=== PATIENT | female | born 1965 | race Two or more races ===

== ENCOUNTER → 2020-05-19 11:55 | Outpatient (BNVA) | payer OTHER, SELFPAY | PROVIDERS: PCP Internal Medicine; Referring Provider Internal Medicine; Visit Provider Physician Assistant | DX: Z01.818 Encounter for other preprocedural examination (principal); K59.09 Other constipation; Z86.010 Personal history of colon polyps; Z80.0 Family history of malignant neoplasm of digestive organs | CPT/HCPCS: 99203 ==

== ENCOUNTER 2020-07-12 10:02 | Outpatient (REF) | payer OTHER, SELFPAY ==
[2020-07-16 15:23] LABS: HPV 16 RNA NOT DETECTED (NOT DETECTED); HPV mRNA E6/E7 rflx Detected (Not Detected)
== END 2020-07-12 10:03 | disposition home or self-care (01) ==
LOC: CF 10:02
PROVIDERS: PCP Internal Medicine; Referring Provider Internal Medicine; Visit Provider Obstetrics & Gynecology
DX: Z01.419 Encounter for gynecological examination (general) (routine) without abnormal findings (principal); R10.2 Pelvic and perineal pain
CPT/HCPCS: 87624; 87625; 88141; 88142

== ENCOUNTER 2020-07-19 14:34 | Outpatient (REF) | payer OTHER, SELFPAY | END 2020-07-19 14:35 | disposition home or self-care (01) | LOC: HO.LNP 14:34 | PROVIDERS: Visit Provider Obstetrics & Gynecology | DX: Z01.419 Encounter for gynecological examination (general) (routine) without abnormal findings (principal); R10.2 Pelvic and perineal pain; Z11.8 Encounter for screening for other infectious and parasitic diseases; Z11.3 Encounter for screening for infections with a predominantly sexual mode of transmission | CPT/HCPCS: 57454; 81025 ==

== ENCOUNTER 2020-07-20 08:41 | Outpatient (REF) | payer OTHER, SELFPAY | END 2020-07-20 08:42 | disposition home or self-care (01) | LOC: HO.LAB 08:41 | PROVIDERS: Visit Provider Obstetrics & Gynecology | DX: Z01.419 Encounter for gynecological examination (general) (routine) without abnormal findings (principal); Z11.51 Encounter for screening for human papillomavirus (HPV) | CPT/HCPCS: 88305; 88342; 88360 ==

== ENCOUNTER → 2020-08-04 12:29 | Outpatient (BNVA) | payer OTHER, SELFPAY | PROVIDERS: PCP Internal Medicine; Visit Provider Obstetrics & Gynecology | DX: Z76.89 Persons encountering health services in other specified circumstances (principal) ==

== ENCOUNTER → 2020-08-16 08:10 | Outpatient (BNVA) | payer OTHER, SELFPAY | PROVIDERS: PCP Internal Medicine; Visit Provider Obstetrics & Gynecology | DX: D06.9 Carcinoma in situ of cervix, unspecified (principal) | CPT/HCPCS: 99212 ==

== ENCOUNTER 2020-08-20 08:14 | Outpatient (REF) | payer OTHER, SELFPAY ==
[2020-08-20 08:07] VITALS: BP 156/100; PULSE 98; RESP 20; TEMP 36.6; O2SAT 97; BMI 27.1
--- NOTE | 2020-08-20 08:41 | PM.OP ---
Brief Operative Note Date of Service: 07/09/20 Pre-op diagnosis: JESSE 2-3 @ 12+1 o' clock with negative ECC Post-op diagnosis: same Procedure: LEEP CONE with post CONE ECC Surgeon: Steve Snell MD Anesthesia: local and other (Paracervical block) Estimated blood loss (mL): 0 Pathology: other (Ant+post Cerv lip, Endocx, Post cone ECC) Condition: stable Disposition: other (Home)
--- NOTE | 2020-08-20 08:42 | W.PM.OPN ---
Operative Note Operative Note Date of Service: 07/09/20 Narrative: Preop diagnosis: JESSE 2-3 with negative ECC Operation: LEEP Cone with post cone ECC Post op diagnosis: same Anesthesia: paracervical block Complications: none Pathology: Anterior and Posterior cervical lip with endocervix & post cone ECC QBL: minimal Procedure: The patient was put in the dorsal lithotomy position, was prepped and draped in the usual sterile fashion. A sterile speculum was inserted inside the patient vagina. Using Lugol solution the cervix with Dyed with Lugol solution to identifiy the abnormal demarcating line. 10 cc of Marcaine0.5% with epinephrine were given at 2,4 , 8, and 10 o'clock. Using a medium-size loop wire, the anterior cervical lip was excised followed by the posterior cervical lip and endocervix, post cone ECC was done afterwards. Hemostasis was assured using cautery and Monsel solution. All instruments were taken out of the patient's vaginal cavity. the patient tolerated the procedure well and was discharged home with the following instructions: call if temperature is above 100.4, vaginal bleeding, abdominal pain or nausea or vomiting. Follow-up in the office in 2 weeks for postop visit
--- NOTE | 2020-08-20 08:43 | MHC.SHP ---
Pre-Procedural Eval Section A The patient is an INPATIENT: No Changes since office visit: No Cold of Flu in the past 2 weeks, No New Medical Problems, No Changes in Medication and No Patient answered all questions The History & Physical has been completed within 30 days and I have reviewed it.: Yes Section B Chief Complaint: contreras 3 Allergies: Allergies Allergy/AdvReac Type Severity Reaction Status Date / Time IV MED FOR VOMITING Allergy Unknown unknown Uncoded 08/16/20 08:42 Plan Diagnosis/Plan: Unchanged I have reviewed the history and physical and performed a pertinent physical examination on my patient. No changes have occurred unless specified.
== END 2020-08-20 14:30 | disposition home or self-care (01) ==
LOC: HO.MS 08:14
PROVIDERS: Visit Provider Obstetrics & Gynecology
PROC: 0UBC7ZZ Excision of Cervix, Via Natural or Artificial Opening (ICD-10-PCS; CPT 57522; principal; 2020-08-20 08:30)
DX: N87.0 Mild cervical dysplasia (principal); A63.0 Anogenital (venereal) warts; Z98.51 Tubal ligation status; Z90.49 Acquired absence of other specified parts of digestive tract
CPT/HCPCS: 57522; 81025; 88305; 88307; 88342; 88360; 99211

== ENCOUNTER 2020-08-25 08:37 | Outpatient (REF) | payer OTHER, SELFPAY ==
[2020-08-25 08:56] LABS: MANUAL DIFF FLAG NO
[2020-08-25 09:02] LABS: Basophils Percent Auto 0.4 % (0-2); Eosinophils Absolute Auto 0.5 X10*3/uL (0.0-0.4); Eosinophils Percent Auto 4.6 % (0-4); Hematocrit 42.2 % (37-47); Hemoglobin 13.7 g/dl (12.0-16.0); Imm Gran Abs Auto 0.03 X10*3/uL (0.00-0.03); Imm Gran Pct Auto 0.3 % (0.0-0.4); Lymphocytes Percent Auto 40.2 % (20-40); Mean Corpuscular HGB Conc 32.5 g/dl (31.0-35.0); Mean Corpuscular Hemoglobin 30.9 pg (27.0-33.0); Mean Corpuscular Volume 95.3 fL (80-98); Mean Platelet Volume 9.2 fL (9.4-12.3); Monocytes Absolute Auto 0.8 X10*3/uL (0.1-1.2); Monocytes Percent Auto 8.3 % (2-11); Neutrophils Absolute Auto 4.6 X10*3/uL (2.0-8.3); Neutrophils Percent Auto 46.2 % (45-73); Platelet Count 288 X10*3/uL (160-400); Red Blood Count 4.43 X10*6/uL (4.20-5.50); Red Cell Distribution Width 12.2 % (11.0-16.0); White Blood Count 9.9 X10*3/uL (4.8-10.8)
[2020-08-25 09:39] LABS: Alanine Aminotransferase 21 U/L (0-31); Albumin Level 4.5 g/dL (3.5-5.0); Alkaline Phosphatase 115 U/L (39-117); Anion Gap 15 (12-20); Aspartate Amino Transferase 19 U/L (5-31); Bilirubin Total 0.7 mg/dL (0.0-1.0); Blood Urea Nitrogen 16 mg/dL (9-16); Calcium 9.7 mg/dL (8.4-10.2); Carbon Dioxide 27 mmol/L (22-29); Chloride 106 mmol/L (96-108); Cholesterol 212 mg/dL; Estimated Glomerular Filt Rate > 60; Glucose Fasting 104 mg/dL (60-99); HDL Cholesterol 51 mg/dL; LDL Cholesterol Calculated 143 mg/dl; Potassium 4.7 mmol/l (3.3-5.1); Sodium 143 mmol/L (135-145); Total Protein 7.4 g/dL (6.5-8.0); Triglycerides 93 mg/dL
== END 2020-08-25 08:38 | disposition home or self-care (01) ==
LOC: HO.LAB 08:37
PROVIDERS: PCP Internal Medicine; Visit Provider Internal Medicine
DX: Z00.00 Encounter for general adult medical examination without abnormal findings (principal); E11.9 Type 2 diabetes mellitus without complications
CPT/HCPCS: 36415; 80053; 80061; 85025

== ENCOUNTER → 2020-09-02 11:55 | Outpatient (BNVA) | payer OTHER, SELFPAY | PROVIDERS: PCP Internal Medicine; Visit Provider Obstetrics & Gynecology ==

== ENCOUNTER 2020-09-06 14:49 | Outpatient (REF) | payer OTHER, SELFPAY ==
--- NOTE | ~2020-09-06 | US_ITS ---
EXAMINATION: PELVIC ULTRASOUND CLINICAL INFORMATION: Pelvic pain COMPARISON: Previous exam most recent June 2019 TECHNIQUE: Transabdominal and transvaginal pelvic ultrasound was performed. Transvaginal exam was performed for better visualization of the uterus and ovaries. FINDINGS: The uterus is anteverted and measures 6.5 x 2.7 x 4.3 cm in dimension. There is a 0.9 x 0.8 x 0.8 cm hypoechoic lesion in the high posterior uterine body suggestive of a small fibroid. No other focal uterine lesion is seen. Endometrial thickness is normal estimated at 0.3 cm. The right ovary measures 2.2 x 1.7 x 1.4 cm. There is a small echogenic focus seen in the periphery posterior right ovary questionable for calcification. This measures 2 mm. The left ovary measures 3.6 x 3 x 2.7 cm. There is a 2.2 x 2 x 2.3 cm complex left ovarian cyst with areas of irregular wall thickening and wall calcification. This is similar in size to the cyst seen on June 2019 exam. Calcification appears similar. Irregular areas of wall thickening are new. It is uncertain whether this represents the same cyst. There is no fluid in the pelvis. US/US pelvic complete IMPRESSION: 2.2 x 2 x 2.3 cm complex left ovarian cyst with areas of irregular wall thickening and question peripheral wall calcification. It is uncertain whether this represents the same cyst seen on June 2019 exam. Ultrasound follow-up in 10-12 weeks following several menstrual cycles is recommended. Small 2 mm echogenic focus in the posterior peripheral right ovary questionable for calcification. Small uterine fibroid.
--- NOTE | ~2020-09-06 | US_ITS ---
EXAMINATION: PELVIC ULTRASOUND CLINICAL INFORMATION: Pelvic pain COMPARISON: Previous exam most recent June 2019 TECHNIQUE: Transabdominal and transvaginal pelvic ultrasound was performed. Transvaginal exam was performed for better visualization of the uterus and ovaries. FINDINGS: The uterus is anteverted and measures 6.5 x 2.7 x 4.3 cm in dimension. There is a 0.9 x 0.8 x 0.8 cm hypoechoic lesion in the high posterior uterine body suggestive of a small fibroid. No other focal uterine lesion is seen. Endometrial thickness is normal estimated at 0.3 cm. The right ovary measures 2.2 x 1.7 x 1.4 cm. There is a small echogenic focus seen in the periphery posterior right ovary questionable for calcification. This measures 2 mm. The left ovary measures 3.6 x 3 x 2.7 cm. There is a 2.2 x 2 x 2.3 cm complex left ovarian cyst with areas of irregular wall thickening and wall calcification. This is similar in size to the cyst seen on June 2019 exam. Calcification appears similar. Irregular areas of wall thickening are new. It is uncertain whether this represents the same cyst. There is no fluid in the pelvis. US/US transvaginal IMPRESSION: 2.2 x 2 x 2.3 cm complex left ovarian cyst with areas of irregular wall thickening and question peripheral wall calcification. It is uncertain whether this represents the same cyst seen on June 2019 exam. Ultrasound follow-up in 10-12 weeks following several menstrual cycles is recommended. Small 2 mm echogenic focus in the posterior peripheral right ovary questionable for calcification. Small uterine fibroid.
== END 2020-09-06 14:50 | disposition home or self-care (01) ==
LOC: HO.US 14:49
PROVIDERS: Visit Provider Obstetrics & Gynecology
DX: R10.2 Pelvic and perineal pain (principal)
CPT/HCPCS: 76830; 76856

== ENCOUNTER 2020-09-10 18:47 | Emergency (ER) | payer OTHER, SELFPAY ==
[2020-09-10 19:17] VITALS: BP 159/93; PULSE 100; RESP 16; TEMP 36.9; O2SAT 99; BMI 26.3
--- NOTE | 2020-09-11 00:06 | ED_ITS ---
HPI - Extremity Problem General Chief complaint: Extremity Injury, Upper Stated complaint: finger swollen Time Seen by Provider: 09/10/20 23:07 Source: patient Mode of arrival: ambulatory Limitations: no limitations History of Present Illness HPI Narrative: 54 years old female presented after having pain and swelling in the tip of the right ring finger after trimming cuticle by biting it with her teeth. No fever chills, Related Data Previous Rx's Medication Instructions Recorded docusate sodium 100 mg capsule 200 mg PO BEDTIME #60 cap 05/19/20 miralax See Rx Instructions PO 05/19/20 USEASDIRECTD #238 g polyethylene glycol 3350 17 17 g PO DAILY #510 g 05/19/20 gram/dose oral powder bisacodyl 5 mg tablet,delayed 10 mg PO ONCE 1 Days #2 tab 07/28/20 release polyethylene glycol 3350 17 238 g PO ONCE 1 Days #238 g 07/28/20 gram/dose oral powder doxycycline monohydrate 100 mg PO BID #14 cap 09/11/20 Allergies Allergy/AdvReac Type Severity Reaction Status Date / Time IV MED FOR VOMITING Allergy Unknown unknown Uncoded 08/16/20 08:42 Review of Systems Review of Systems: All other systems are reviewed and are negative Constitutional: Reports as per HPI and Reports no additional constitutional co mplaints Eyes: Reports as per HPI and Reports no additional eye complaints Reports system reviewed and no additional complaints, except as documented Cardiovascular: Reports as per HPI and Reports no additional cardiovascular complaints Respiratory: Reports as per HPI and Reports no additional respiratory complaints Gastrointestinal: Reports as per HPI and Reports no additional gastrointestinal complaints Genitourinary: Reports no additional female genitourinary complaints Musculoskeletal: Reports no additional musculoskeletal complaints Skin/Breast: Reports system reviewed and no additional complaints, except as docu Psychiatric: Reports no additional psychiatric complaints Endocrine: Reports no additional endocrine complaints Hematologic/Lymphatic: Reports no additional hematologic/lymphatic complaints Allergic/Immunologic: Reports no additional allergic/immunologic complaints Reports system reviewed and no additional complaints, except as documented and Reports Abnormal speech present [facility] Past Medical History Medical History Colon polyps HPV (human papilloma virus) anogenital infection Surgical History H/O LEEP History of appendectomy History of cholecystectomy History of surgery Tubal ligation status Family History Family History Mother Colon cancer Maternal Grandfather No problems noted. Father Asthma Brother Lymphoma involving liver Maternal Aunt Breast cancer Social History Social History Alcohol intake: never Smoking Status: Never smoker Advance Directives: No Advance Directives Information Provided: Yes Sexual orientation: Straight/Heterosexual Gender identity: female Physical Exam Vital Signs: Vital Signs: Last Vital Signs Temp 98.4 F 09/10/20 19:17 Pulse 100 09/10/20 19:17 Resp 16 09/10/20 19:17 BP 159/93 H 09/10/20 19:17 Pulse Ox 99 09/10/20 19:17 Body Mass Index 26.3 Vital signs have been reviewed as normal and appeared to be correct. Blood pressure normal. Heart rate normal. Respiration rate normal. Temperature normal. Oxygen saturation normal. Appearance: Alert. Oriented X3. No acute distress. Head: Normal external exam. Normocephalic. Atraumatic. No Berger signs noted. No raccoon eyes noted Eyes: PERRLA. EOMI. Conjunctiva and sclera normal. Eyelids normal. ENT: EAC normal. TM's Normal. Pharynx normal. Uvula midline. Moist mucous membranes. No trismus noted. No drooling noted. No muffled voice noted. Neck: Normal inspection. Neck supple. FROM. No adenopathy. Thyroid Normal. No meningeal signs. No neck mass noted. CVS: Normal heart rate and rhythm. Heart sound normal. No murmurs noted. Pulses normal throughout. Respiratory: No respiratory distress. Painless inspiration. Breath sounds normal. No wheezes/rales/rhonchi noted. Chest nontender. No accessory muscle usage noted or decreased air movement noted. Abdomen: Soft and nontender. Bowel sounds normal in all 4 quadrants. No distention noted. No organomegaly noted. No visible injury noted. Back: No CVA tenderness. Full range of motion noted. Skin: Skin warm and dry. Normal skin color. Normal skin turgor. No rashes/lesions/lacerations noted. Extremities: Paronychia to the right ring finger with fluctuation on the ulnar side. Otherwise neurovascular exam of her right hand is intact. Neuro: Oriented X 3. No motor deficit. No sensory deficit. Reflexes normal. Course Course Course Narrative: Assessment and plan. 54-year-old female came in with paronychia infection with abscess, status post I and D of the paronychia with abscess of her right ring finger. Patient feels better after the procedure, start the patient on 7 days course of doxycycline. Procedures Abscess I/D Site: hand (Right ring finger paronychia) Local Anesthetic: lidocaine 1% Technique: incised with blade (Eleven blade scalpel) Amount of fluid expressed (mL): 3 Irrigation: No Packing used?: none Discharge Plan Discharge Clinical Impression: Paronychia of finger Qualifiers: Laterality: right Qualified Code(s): L03.011 - Cellulitis of right finger Patient Disposition: Home, Self-Care Instructions: Paronychia (ED) Prescriptions: New doxycycline monohydrate 100 mg capsule 100 mg PO BID Qty: 14 RF: 0 No Action polyethylene glycol 3350 [Miralax] 17 gram/dose powder 238 g PO ONCE 1 Days Qty: 238 RF: 0 bisacodyl [Dulcolax (bisacodyl)] 5 mg tablet,delayed release (DR/EC) 10 mg PO ONCE 1 Days Qty: 2 RF: 0 miralax See Rx Instructions PO USEASDIRECTD Qty: 238 RF: 0 polyethylene glycol 3350 [Miralax] 17 gram/dose powder 17 g PO DAILY Qty: 510 RF: 0 docusate sodium [Colace] 100 mg capsule 200 mg PO BEDTIME Qty: 60 RF: 5 Referrals: Jose Alberto Dumas MD [Primary Care Provider] - 2 days
[2020-09-11] MEDS: Lidocaine HCl 1 % MPF 5 ML VIAL SUBCUT (00:18)
== END 2020-09-11 00:45 | disposition home or self-care (01) ==
PROVIDERS: Emergency Provider Emergency Medicine; PCP Internal Medicine
DX: L03.011 Cellulitis of right finger (principal)
CPT/HCPCS: 10060; 99283; 99284

== ENCOUNTER → 2020-09-14 13:35 | Outpatient (BNVA) | payer OTHER, SELFPAY | PROVIDERS: PCP Internal Medicine; Visit Provider Obstetrics & Gynecology ==

== ENCOUNTER 2020-09-15 12:13 | Outpatient (REF) | payer OTHER, SELFPAY ==
[2020-09-16 12:26] LABS: CA-125 5 U/mL (<35)
== END 2020-09-15 12:14 | disposition home or self-care (01) ==
LOC: HO.LAB 12:13
PROVIDERS: PCP Internal Medicine; Visit Provider Obstetrics & Gynecology
DX: N83.299 Other ovarian cyst, unspecified side (principal)
CPT/HCPCS: 36415; 86304

== ENCOUNTER 2020-09-17 07:27 | Emergency (ER) | payer OTHER, SELFPAY ==
--- NOTE | ~2020-09-17 | CT_ITS ---
EXAMINATION: CT ABDOMEN AND PELVIS WITHOUT CONTRAST CLINICAL INFORMATION: Left upper quadrant pain. COMPARISON: Pelvic ultrasound 321. Prior CT 04/09/2007 TECHNIQUE: Multidetector volumetric imaging was performed from the superior aspect of the liver through the pubic symphysis. Sagittal and coronal reformatted images were obtained on the technologist's workstation. This CT examination was performed using dose optimization techniques as appropriate, variously including the following: *Automated exposure control *Adjustment of mA and/or kV according to patient size (this includes techniques or standardized protocols for targeted exams where dose is matched to indication/reason for exam; i.e. extremities or head) *Use of iterative reconstruction technique DLP: 490 mGy-cm FINDINGS: The lack of intravenous contrast limits evaluation of the solid visceral organs including the liver, spleen, pancreas, and kidneys. LUNG BASES: The visualized lung bases are unremarkable. LIVER, GALLBLADDER, AND BILIARY TREE: Limited non-contrast evaluation is normal. No gross focal hepatic lesion. Normal liver size and contour. No gross biliary ductal dilation. Status post cholecystectomy. PANCREAS: Limited non-contrast evaluation is normal. No abbey-pancreatic fluid. SPLEEN: Limited non-contrast evaluation is normal. ADRENAL GLANDS: Normal; no adrenal mass. KIDNEYS AND URETERS: There is slight prominence of both proximal ureters but no hydronephrosis. No calculi or mass. GASTROINTESTINAL TRACT: Small bowel and colon are non-dilated. No bowel wall thickening. No pericolonic inflammatory changes to suggest colitis or diverticulitis. ABDOMINAL WALL: No hernia seen. LYMPH NODES: No pathologically enlarged lymph nodes in the abdomen or pelvis. VASCULAR: Normal caliber abdominal aorta. BLADDER: Unremarkable. PELVIC VISCERA: Normal noncontrast appearance of the uterus and ovaries. OSSEOUS STRUCTURES: No acute or suspicious osseous abnormalities. CT/CT abdomen pelvis wo con IMPRESSION: No acute CT findings.
[2020-09-17 07:39] VITALS: BP 135/84; PULSE 89; RESP 16; TEMP 36.4; O2SAT 97; BMI 26.5
--- NOTE | 2020-09-17 07:59 | ED_ITS ---
HPI - Abdominal Pain General Chief Complaint: Abdominal Pain Stated Complaint: PAIN ALL OVER Time Seen by Provider: 09/17/20 07:59 Source: patient Mode of arrival: ambulatory Limitations: no limitations History of Present Illness HPI narrative: 54 yo female with hx of cholecystectomy c/o LUQ pain that radiates to her back on and off for 2 months but worse since last night - no dyspnea, no pain with deep breaths but pain is under left breast MD elicited complaint: abdominal pain Pertinent past history: constipation Onset (ago): month(s) (2 but worse since last night) Pain Consistency: intermittent Location: chest, epigastric and LUQ Severity: similar to previous episodes Quality: stabbing Radiation: none Migration to: no migration Exacerbating factors: movement Relieving factors: nothing Context: history of similar episodes Associated symptoms: nausea and constipation Related Data Previous Rx's Medication Instructions Recorded docusate sodium 100 mg capsule 200 mg PO BEDTIME #60 cap 05/19/20 miralax See Rx Instructions PO 05/19/20 USEASDIRECTD #238 g polyethylene glycol 3350 17 17 g PO DAILY #510 g 05/19/20 gram/dose oral powder bisacodyl 5 mg tablet,delayed 10 mg PO ONCE 1 Days #2 tab 07/28/20 release polyethylene glycol 3350 17 238 g PO ONCE 1 Days #238 g 07/28/20 gram/dose oral powder doxycycline monohydrate 100 mg PO BID #14 cap 09/11/20 dicyclomine 20 mg PO TID PRN #30 tab 09/17/20 famotidine [Pepcid] 20 mg PO DAILY PRN #30 tab 09/17/20 ondansetron 4 mg PO Q8H PRN #20 tab 09/17/20 sennosides [senna] 8.6 mg PO BEDTIME PRN #30 cap 09/17/20 Allergies Allergy/AdvReac Type Severity Reaction Status Date / Time IV MED FOR VOMITING Allergy Unknown unknown Uncoded 08/16/20 08:42 Review of Systems Review of Systems Constitutional : No Weight loss, No Fever, No Chills ENT/Mouth : No sore throat, No Rhinorrhea Eyes: No Swelling, No Redness Cardiovascular : pos Chest Pain, No SOB, NoEdema Respiratory : No Cough, No Sputum, No Wheezing Gastrointestinal : Positive Nausea, no Vomiting, no Diarrhea, positive abdominal Pain, No Hematochezia, No Melena, pos constipation Genitourinary : No Dysuria, No Urinary Frequency, No Hematuria, No Urgency Musculoskeletal : No joint pain, No Myalgias, No Joint Swelling Skin : No Skin Lesions, No rash Neuro : No Weakness, No Numbness, No Dizziness, No Headache Psych : No Anxiety/Panic, No Depression Heme/Lymph: No Bruising, No Lymphadenopathy Endocrine : No Polyuria, No Polydipsia All other systems reviewed and are negative. Physical Exam Vital Signs: Vital Signs: Last Vital Signs Temp 97.5 F 09/17/20 07:39 Pulse 89 09/17/20 07:39 Resp 16 09/17/20 07:39 BP 135/84 09/17/20 07:39 Pulse Ox 97 09/17/20 07:39 Body Mass Index 26.5 Appearance: Alert. Oriented X3. No acute distress. Eyes: Pupils equal, round and reactive to light. ENT: Pharynx normal. Neck: Normal inspection. Neck supple. CVS: Normal heart rate and rhythm. Pulses normal. Respiratory: No respiratory distress. Breath sounds normal. Abdomen: Soft and mild LUQ pain no rebound or guarding Skin: Skin warm and dry. Normal skin color. Normal skin turgor. Extremities: No lower extremity edema. No calf ttp Neuro: Oriented X 3. No motor deficit. No sensory deficit. Course Course Course Narrative: negative workup stable for DC MDM - Abdominal Pain MDM Narrative Medical decision making narrative: 54 yo female with hx of constipation not on medications here with 2 months of intermittent LUQ pain but worse since last night could be distention from constipation at this time will obtain labs, ddimer, EKG, troponin, treat discomfort - possible imaging depending on labs including CT for mass. Lab Data Result diagrams: 09/17/20 08:24 09/17/20 08:24 Labs: Lab Results 09/17/20 09/17/20 09/17/20 Range/Units 08:15 08:24 08:24 WBC 4.4 L (4.8-10.8) X10*3/uL RBC 4.37 (4.20-5.50) X10*6/uL Hgb 13.5 (12.0-16.0) g/dl Hct 40.2 (37-47) % MCV 92.0 (80-98) fL MCH 30.9 (27.0-33.0) pg MCHC 33.6 (31.0-35.0) g/dl RDW 12.2 (11.0-16.0) % Plt Count 269 (160-400) X10*3/uL MPV 9.4 (9.4-12.3) fL Immature Gran % (Auto) 0.2 (0.0-0.4) % Neut % (Auto) 37.9 L (45-73) % Lymph % (Auto) 39.3 (20-40) % [place] % (Auto) 16.4 H (2-11) % Eos % (Auto) 5.7 H (0-4) % Baso % (Auto) 0.5 (0-2) % Lymph # (Auto) 1.7 (1.2-4.9) X10*3/uL [place] # (Auto) 0.7 (0.1-1.2) X10*3/uL Eos # (Auto) 0.3 (0.0-0.4) X10*3/uL Baso # (Auto) 0.0 (0.0-0.2) X10*3/uL Abs Immat Gran (auto) 0.01 (0.00-0.03) X10*3/uL Absolute Neuts (auto) 1.7 L (2.0-8.3) X10*3/uL Absolute Nucleated RBC 0.000 (0.0-0.012) X10*3/uL Nucleated RBC % (auto) 0.0 (0.0-0.2) /100WBC D-Dimer 226 NG/ML Sodium (135-145) mmol/L Potassium (3.3-5.1) mmol/L Chloride (96-108) mmol/L Carbon Dioxide (22-29) mmol/L Anion Gap (12-20) BUN (9-16) mg/dL Creatinine (0.5-1.4) mg/dL Estim Creat Clear Calc Estimated GFR Random Glucose (60-115) mg/dL Calcium (8.4-10.2) mg/dL Magnesium (1.6-2.6) mg/dL Total Bilirubin (0.0-1.0) mg/dL Direct Bilirubin (0.0-0.5) mg/dL AST (5-31) U/L ALT (0-31) U/L Alkaline Phosphatase (39-117) U/L Troponin I High Sens (<3.5-17.0) ng/L Total Protein (6.5-8.0) g/dL Albumin (3.5-5.0) g/dL Lipase (8-78) U/L Urine Color YELLOW Urine Appearance CLEAR Urine pH 6.0 (5.0-8.0) Ur Specific [place] 1.015 (1.005-1.025) Urine Protein NEG (NEG-TRACE) MG/DL Urine Glucose (UA) NEG (NEG) MG/DL Urine Ketones NEG (NEG) MG/DL Urine Blood 1+ H (NEG) Urine Nitrite NEG (NEG) Ur Leukocyte Esterase NEG (NEG) Urine RBC 1-4 (0) /HPF Urine WBC 0-2 (0-4) /HPF Ur Squamous Epith Cells TRACE /LPF Urine Bacteria NONE /LPF 09/17/20 09/17/20 09/17/20 Range/Units 08:24 08:24 08:30 WBC (4.8-10.8) X10*3/uL RBC (4.20-5.50) X10*6/uL Hgb (12.0-16.0) g/dl Hct (37-47) % MCV (80-98) fL MCH (27.0-33.0) pg MCHC (31.0-35.0) g/dl RDW (11.0-16.0) % Plt Count (160-400) X10*3/uL MPV (9.4-12.3) fL Immature Gran % (Auto) (0.0-0.4) % Neut % (Auto) (45-73) % Lymph % (Auto) (20-40) % [place] % (Auto) (2-11) % Eos % (Auto) (0-4) % Baso % (Auto) (0-2) % Lymph # (Auto) (1.2-4.9) X10*3/uL [place] # (Auto) (0.1-1.2) X10*3/uL Eos # (Auto) (0.0-0.4) X10*3/uL Baso # (Auto) (0.0-0.2) X10*3/uL Abs Immat Gran (auto) (0.00-0.03) X10*3/uL Absolute Neuts (auto) (2.0-8.3) X10*3/uL Absolute Nucleated RBC (0.0-0.012) X10*3/uL Nucleated RBC % (auto) (0.0-0.2) /100WBC D-Dimer NG/ML Sodium 137 (135-145) mmol/L Potassium 3.7 (3.3-5.1) mmol/L Chloride 104 (96-108) mmol/L Carbon Dioxide 26 (22-29) mmol/L Anion Gap 11 L (12-20) BUN 12 (9-16) mg/dL Creatinine 0.69 (0.5-1.4) mg/dL Estim Creat Clear Calc 84.8 Estimated GFR > 60 Random Glucose 104 (60-115) mg/dL Calcium 9.4 (8.4-10.2) mg/dL Magnesium 2.2 (1.6-2.6) mg/dL Total Bilirubin 0.4 (0.0-1.0) mg/dL Direct Bilirubin < 0.2 (0.0-0.5) mg/dL AST 19 (5-31) U/L ALT 15 (0-31) U/L Alkaline Phosphatase 112 (39-117) U/L Troponin I High Sens < 3.5 (<3.5-17.0) ng/L Total Protein 7.4 (6.5-8.0) g/dL Albumin 4.4 (3.5-5.0) g/dL Lipase 11 (8-78) U/L Urine Color Urine Appearance Urine pH (5.0-8.0) Ur Specific [place] (1.005-1.025) Urine Protein (NEG-TRACE) MG/DL Urine Glucose (UA) (NEG) MG/DL Urine Ketones (NEG) MG/DL Urine Blood (NEG) Urine Nitrite (NEG) Ur Leukocyte Esterase (NEG) Urine RBC (0) /HPF Urine WBC (0-4) /HPF Ur Squamous Epith Cells /LPF Urine Bacteria /LPF ECG Data Attestation: I personally reviewed and interpreted this ECG as follows: ECG interpretation date: 09/17/20 ECG interpretation time: 08:12 Interpretation: Rate: 83 Rhythm: NSR Lindsay: normal Normal P waves. Normal FAHEEM. Normal QRS complex. ST T wave : normal qTC: normal prior studies: no acute ischemia The study has been interpreted contemporaneously by me. . Discharge Plan Discharge Clinical Impression: Chronic constipation, Abdominal pain Patient Disposition: Home, Self-Care Instructions: Constipation (ED), Abdominal Pain (ED) Additional Instructions: return to ED for any worsening symptoms or concerns Prescriptions: New famotidine [Pepcid] 20 mg tablet 20 mg PO DAILY PRN (Reason: abdominal discomfort) Qty: 30 RF: 0 ondansetron 4 mg tablet,disintegrating 4 mg PO Q8H PRN (Reason: nausea and vomiting) Qty: 20 RF: 0 senna 8.6 mg capsule 8.6 mg PO BEDTIME PRN (Reason: constipation) Qty: 30 RF: 0 dicyclomine 20 mg tablet 20 mg PO TID PRN (Reason: abdominal discomfort) Qty: 30 RF: 0 No Action polyethylene glycol 3350 [Miralax] 17 gram/dose powder 238 g PO ONCE 1 Days Qty: 238 RF: 0 bisacodyl [Dulcolax (bisacodyl)] 5 mg tablet,delayed release (DR/EC) 10 mg PO ONCE 1 Days Qty: 2 RF: 0 doxycycline monohydrate 100 mg capsule 100 mg PO BID Qty: 14 RF: 0 miralax See Rx Instructions PO USEASDIRECTD Qty: 238 RF: 0 polyethylene glycol 3350 [Miralax] 17 gram/dose powder 17 g PO DAILY Qty: 510 RF: 0 docusate sodium [Colace] 100 mg capsule 200 mg PO BEDTIME Qty: 60 RF: 5 Referrals: Jose Alberto Dumas MD [Primary Care Provider] - 3 days (if not better) [facility] Past Medical History Attestation statement: The following information was validated with the patient. Medical History Colon polyps HPV (human papilloma virus) anogenital infection Surgical History H/O LEEP History of appendectomy History of cholecystectomy History of surgery Tubal ligation status Family History Family History Mother Colon cancer Maternal Grandfather No problems noted. Father Asthma Brother Lymphoma involving liver Maternal Aunt Breast cancer Social History Social History Alcohol intake: never Smoking Status: Never smoker Advance Directives: No Advance Directives Information Provided: No Sexual orientation: Straight/Heterosexual Gender identity: female
--- NOTE | 2020-09-17 08:02 | ECG_ITS ---
Test Reason : ABDOMINAL PAIN Blood Pressure : / mmHG Vent. Rate : 083 BPM Atrial Rate : 083 BPM P-R Int : 174 ms QRS Dur : 080 ms QT Int : 382 ms P-R-T Axes : 043 003 055 degrees QTc Int : 448 ms Normal sinus rhythm Normal ECG When compared with ECG of 18-JAN-2020 05:59, No significant change was found Referred By: Jane Kline Electronically Signed By:Drew Genao
--- NOTE | 2020-09-17 08:07 | PC.NURSE ---
SEEN BY DR LEO AT THIS TIME
[2020-09-17 08:33] LABS: MANUAL DIFF FLAG NO
[2020-09-17] MEDS: 0.9 % Sodium Chloride 500 ML IV (08:36)
[2020-09-17] MEDS: Ketorolac Tromethamine 30 MG/ML VIAL IVPUSH (08:36)
[2020-09-17 08:37] LABS: Glucose Urine UA NEG (NEG); Leukocyte Esterase Urine NEG (NEG); Nitrite Urine NEG (NEG); Specific Gravity - Urine 1.015 (1.005-1.025); Urine Blood 1+ (NEG); Urine Ketones NEG (NEG); Urine Protein NEG (NEG-TRACE)
[2020-09-17 08:37] LABS: Basophils Percent Auto 0.5 % (0-2); Eosinophils Absolute Auto 0.3 X10*3/uL (0.0-0.4); Eosinophils Percent Auto 5.7 % (0-4); Hematocrit 40.2 % (37-47); Hemoglobin 13.5 g/dl (12.0-16.0); Imm Gran Abs Auto 0.01 X10*3/uL (0.00-0.03); Imm Gran Pct Auto 0.2 % (0.0-0.4); Lymphocytes Absolute Auto 1.7 X10*3/uL (1.2-4.9); Lymphocytes Percent Auto 39.3 % (20-40); Mean Corpuscular HGB Conc 33.6 g/dl (31.0-35.0); Mean Corpuscular Hemoglobin 30.9 pg (27.0-33.0); Mean Platelet Volume 9.4 fL (9.4-12.3); Monocytes Absolute Auto 0.7 X10*3/uL (0.1-1.2); Monocytes Percent Auto 16.4 % (2-11); Neutrophils Absolute Auto 1.7 X10*3/uL (2.0-8.3); Neutrophils Percent Auto 37.9 % (45-73); Platelet Count 269 X10*3/uL (160-400); Red Blood Count 4.37 X10*6/uL (4.20-5.50); Red Cell Distribution Width 12.2 % (11.0-16.0); White Blood Count 4.4 X10*3/uL (4.8-10.8)
--- NOTE | 2020-09-17 08:38 | PC.NURSE ---
IV EST 20 G L AC. BLOOD AND URINE TO LAB. EKG DONE. MEDICATED PER ORDERS
[2020-09-17 08:47] LABS: D Dimer 226 NG/ML
[2020-09-17 08:48] LABS: Appearance Urine CLEAR; Color Urine YELLOW
[2020-09-17 08:52] LABS: WBC Urine 0-2 /HPF (0-4)
[2020-09-17 08:53] LABS: Squamous Epithelial Cell Urine TRACE /LPF
[2020-09-17 09:01] LABS: Alanine Aminotransferase 15 U/L (0-31); Albumin Level 4.4 g/dL (3.5-5.0); Alkaline Phosphatase 112 U/L (39-117); Anion Gap 11 (12-20); Aspartate Amino Transferase 19 U/L (5-31); Bilirubin Direct < 0.2 mg/dL (0.0-0.5); Bilirubin Total 0.4 mg/dL (0.0-1.0); Blood Urea Nitrogen 12 mg/dL (9-16); Calcium 9.4 mg/dL (8.4-10.2); Carbon Dioxide 26 mmol/L (22-29); Chloride 104 mmol/L (96-108); Creatinine Clr Calc Pharmacy 84.8; Estimated Glomerular Filt Rate > 60; Glucose Random 104 mg/dL (60-115); Magnesium 2.2 mg/dL (1.6-2.6); Potassium 3.7 mmol/L (3.3-5.1); Sodium 137 mmol/L (135-145); Total Protein 7.4 g/dL (6.5-8.0)
[2020-09-17 09:02] LABS: Lipase 11 U/L (8-78)
[2020-09-17 09:05] LABS: Troponin-I High Sensitivity < 3.5 ng/L (<3.5-17.0)
[2020-09-17 10:09] VITALS: BP 131/76; PULSE 78
== END 2020-09-17 10:10 | disposition home or self-care (01) ==
PROVIDERS: Emergency Provider Emergency Medicine; PCP Internal Medicine
DX: K59.00 Constipation, unspecified (principal); R10.12 Left upper quadrant pain; R10.13 Epigastric pain; Z79.899 Other long term (current) drug therapy
CPT/HCPCS: 36415; 74176; 80048; 80076; 81001; 83690; 83735; 84484; 85025; 85379; 93005; 96361; 96374; 99283; 99284; J1885

== ENCOUNTER 2020-09-18 06:17 | Emergency (ER) | payer OTHER, SELFPAY ==
[2020-09-18 07:14] VITALS: BP 137/75; PULSE 86; RESP 18; TEMP 36.8; O2SAT 97; BMI 26.5
[2020-09-18 09:12] VITALS: PULSE 89; RESP 16; O2SAT 99
--- NOTE | 2020-09-18 09:12 | ED_ITS ---
HPI - Abdominal Pain General Chief Complaint: Abdominal Pain Stated Complaint: abdominal pain/constipation Time Seen by Provider: 09/18/20 06:55 Source: patient Mode of arrival: ambulatory Limitations: no limitations History of Present Illness HPI narrative: 54-year-old female with below history including history of chronic recurrent abdominal pain in the setting of constipation, colon polyps, HPV with surgical history is significant for appendectomy, cholecystectomy and tubal ligation presenting with complaint of states she was seen in emergency room yesterday for abdominal pain she felt better after evaluation and treatment here she got home she ate something and gave her a burning-like epigastric pain. Also reports that the constipation medication (MiraLax) she was given she took it last night and has not had a bowel movement yet. She otherwise denies any nausea or vomiting. No fever. No symptoms. MD elicited complaint: abdominal pain Pertinent past history: constipation Location: epigastric and LUQ Severity: mild Radiation: none Exacerbating factors: nothing Associated symptoms: constipation Related Data Previous Rx's Medication Instructions Recorded docusate sodium 100 mg capsule 200 mg PO BEDTIME #60 cap 05/19/20 miralax See Rx Instructions PO 05/19/20 USEASDIRECTD #238 g polyethylene glycol 3350 17 17 g PO DAILY #510 g 05/19/20 gram/dose oral powder bisacodyl 5 mg tablet,delayed 10 mg PO ONCE 1 Days #2 tab 07/28/20 release polyethylene glycol 3350 17 238 g PO ONCE 1 Days #238 g 07/28/20 gram/dose oral powder doxycycline monohydrate 100 mg PO BID #14 cap 09/11/20 dicyclomine 20 mg PO TID PRN #30 tab 09/17/20 famotidine [Pepcid] 20 mg PO DAILY PRN #30 tab 09/17/20 ondansetron 4 mg PO Q8H PRN #20 tab 09/17/20 sennosides [senna] 8.6 mg PO BEDTIME PRN #30 cap 09/17/20 Allergies Allergy/AdvReac Type Severity Reaction Status Date / Time IV MED FOR VOMITING Allergy Unknown unknown Uncoded 08/16/20 08:42 Review of Systems Review of Systems Constitutional: No Weight loss, No Fever, No Chills, No Night Sweats, No Fatigue, No Malaise ENT/Mouth: No Hearing loss, No Ear Pain, No Nasal Congestion, No Sinus Pain, No Hoarseness, No sore throat, No Rhinorrhea, No Swallowing Difficulty . Eyes: No Eye Pain, No Swelling, No Redness, No Foreign Body, No Discharge, No Vision Changes Cardiovascular: No Chest Pain, No SOB, No Dyspnea on Exertion, No Orthopnea, No Edema, No Palpitations Respiratory: No Cough, No Sputum, No Wheezing, No Smoke Exposure, No Dyspnea Gastrointestinal: As noted per HPI, No Hematochezia, No Melena Genitourinary: no irregular bleeding, No Dysuria, No Urinary Frequency, No Hematuria, No Urinary Incontinence, No Urgency, No Flank Pain, No Urinary Flow Changes, No Hesitancy Musculoskeletal: No joint pain, No Myalgias, No Joint Swelling Skin: No Skin Lesions, No rash Neuro: No Weakness, No Numbness, No Paresthesias, No Loss of Consciousness, No Dizziness, No Headache Psych: No Anxiety/Panic, No Depression, No SI/HI/AH/VH, No Social Issues Heme/Lymph: No Bruising, No Bleeding,No Lymphadenopathy Endocrine: No Polyuria, No Polydipsia, No Temperature Intolerance Yes all other systems are reviewed and are negative Physical Exam Vital Signs: Vital Signs: Last Vital Signs Temp 98.2 F 09/18/20 07:14 Pulse 89 09/18/20 09:12 Resp 16 09/18/20 09:12 BP 137/75 09/18/20 07:14 Pulse Ox 99 09/18/20 09:12 Body Mass Index 26.5 Reviewed Const: General: cooperative and healthy appearing; No acute distress or intoxicated appearing Nutritional Appearance: average body habitus Orientation/consciousness: patient oriented x3 HENMT: Head: Yes normal to inspection Ears: hearing grossly normal bilaterally Eyes: General: appearance normal, both eyes and all related structures Visual Eubanks: normal visual eubanks by confrontation Neck: Neck: Yes normal visual inspection, No positive Brudzinski's sign, No positive Kernig's sign and No tender Thyroid: Thyroid normal Chest: Chest palpation & inspection: normal inspection of the chest Resp: Effort & Inspection: normal respiratory effort Cardio: Jugular venous distension: no JVD Rhythm: regular rhythm Heart sounds: S1 normal heart sound present and S2 normal heart sound present GI: Inspection: Yes normal to inspection Palpation (GI): Soft to palpation, nontender, no guarding, not rigid and hepatosplenomegaly present Percussion: Yes normal to percussion Auscultation: normal bowel sounds : General: Yes no CVA tenderness Back/Spine/Pelvis: Back: no CVA tenderness Skin: General skin exam: no rashes or lesions noted Neuro: General: patient oriented x3 Extrem: General: Yes normal to inspection MDM - Abdominal Pain MDM Narrative Medical decision making narrative: Appears that patient has had recurrent left side on plain in the setting of constipation, this pain is described as intermittent and going on for year has seen GI. Most recently she was here less than 24 hours ago had extensive workup including labs liver function tests, abdominal CT and cardiac enzyme without significant findings. I question superimposed reflux based on her description. She will continue with her MiraLax and Pepcid will do dietary precautions and add on magnesium citrate p.r.n. for constipation. She is overall nontoxic appearing. Feels comfortable plan. Will discharge home. At this time no indication for repeat lab/imaging. Differential Diagnosis Differential diagnosis: Likely abdominal pain, constipation and gastritis; Unlikely aortic dissection, acute appendicitis, bowel perforation, calculus of kidney, diverticulitis, endometriosis, gastroenteritis, mesenteric ischemia, ovarian cyst, pancreatitis, peptic ulcer disease, renal colic and small bowel obstruction Medical Records Attestation: I reviewed the patient's medical records. Lab Data Attestation: I reviewed the patient's lab results. Discharge Plan Discharge Clinical Impression: Abdominal pain Patient Disposition: Home, Self-Care Instructions: Constipation (ED), Gastroesophageal Reflux Disease (ED) Additional Instructions: Eat a well-balanced diet Eating small portions Avoid any greasy foods Avoid any carbonated drinks Avoid any caffeine Taking medications as prescribed Continue with your bowel regiment you can add magnesium citrate [id number] liquid for constipation in addition to your MiraLax Return if any concerns or worsening symptoms otherwise follow up with her primary care doctor/GI as discussed Thank you Prescriptions: No Action polyethylene glycol 3350 [Miralax] 17 gram/dose powder 238 g PO ONCE 1 Days Qty: 238 RF: 0 bisacodyl [Dulcolax (bisacodyl)] 5 mg tablet,delayed release (DR/EC) 10 mg PO ONCE 1 Days Qty: 2 RF: 0 doxycycline monohydrate 100 mg capsule 100 mg PO BID Qty: 14 RF: 0 famotidine [Pepcid] 20 mg tablet 20 mg PO DAILY PRN (Reason: abdominal discomfort) Qty: 30 RF: 0 ondansetron 4 mg tablet,disintegrating 4 mg PO Q8H PRN (Reason: nausea and vomiting) Qty: 20 RF: 0 senna 8.6 mg capsule 8.6 mg PO BEDTIME PRN (Reason: constipation) Qty: 30 RF: 0 dicyclomine 20 mg tablet 20 mg PO TID PRN (Reason: abdominal discomfort) Qty: 30 RF: 0 miralax See Rx Instructions PO USEASDIRECTD Qty: 238 RF: 0 polyethylene glycol 3350 [Miralax] 17 gram/dose powder 17 g PO DAILY Qty: 510 RF: 0 docusate sodium [Colace] 100 mg capsule 200 mg PO BEDTIME Qty: 60 RF: 5 Referrals: Denia Baez PA-C [Physician [facility] [facility]] - 1 week Discharge Date/Time: 09/18/20 10:45 [facility] Past Medical History Medical History Colon polyps HPV (human papilloma virus) anogenital infection Surgical History H/O LEEP History of appendectomy History of cholecystectomy History of surgery Tubal ligation status Family History Family History Mother Colon cancer Maternal Grandfather No problems noted. Father Asthma Brother Lymphoma involving liver Maternal Aunt Breast cancer Social History Social History Alcohol intake: never Smoking Status: Never smoker Use of substances other than those prescribed or required for medical reasons: No Advance Directives: Yes Advance Directives Information Provided: Yes Advance Directives on File: No Sexual orientation: Straight/Heterosexual Gender identity: female
[2020-09-18] MEDS: Simethicone 80 MG TAB.CHEW 160 MG PO (09:34)
== END 2020-09-18 10:45 | disposition home or self-care (01) ==
PROVIDERS: Emergency Provider Emergency Medicine
DX: R10.9 Unspecified abdominal pain (principal); K59.00 Constipation, unspecified
CPT/HCPCS: 99283; 99284

== ENCOUNTER 2020-09-28 07:12 | Day surgery (SDC) | payer OTHER, SELFPAY ==
[2020-07-28 09:59] VITALS: BMI 27.6
[2020-09-22 10:48] VITALS: BMI 26.5
--- NOTE | 2020-09-27 10:50 | HO.ANESPROP2 ---
Documented by User: Brittany Delgado 09/27/20 10:52 HPI - Anesthesia Eval Consult details Narrative: 54yo F for Colonoscopy PMFSH Active Problems Active Problems: All Active Problems (Updated 09/25/20 @ 21:40 by Margoth Loredo NP) GERD (gastroesophageal reflux disease) (Acute) Vertigo (Acute) Epigastric pain (Acute) Chronic constipation (Acute) Encounter for screening colonoscopy (Acute) Well woman exam (Acute) Female pelvic pain (Acute) JESSE III (cervical intraepithelial neoplasia grade III) with severe dysplasia (Acute) Physical exam (Acute) Complex ovarian cyst (Acute) Screening mammogram, encounter for (Acute) Past Medical History Medical History (Updated 09/25/20 @ 21:40 by Margoth Loredo NP) Colon polyps Constipation GERD (gastroesophageal reflux disease) HPV (human papilloma virus) anogenital infection Nausea Vertigo Family History Family History Mother Colon cancer Maternal Grandfather No problems noted. Father Asthma Brother Lymphoma involving liver Maternal Aunt Breast cancer Surgical History Surgical History H/O LEEP History of appendectomy History of cholecystectomy History of surgery History of tubal ligation Hx of colonoscopy Social History Social History Alcohol intake: never Smoking Status: Former smoker Smoking Quit Date: 1990 Use of substances other than those prescribed or required for medical reasons: No Advance Directives: No Advance Directives Information Provided: No Advance Directives on File: No Sexual orientation: Straight/Heterosexual Gender identity: female Meds Allergies Allergy/AdvReac Type Severity Reaction Status Date / Time IV MED FOR VOMITING Allergy Unknown unknown Uncoded 08/16/20 08:42 Home Medications Medication Instructions Recorded Confirmed Last Taken Type sennosides 8.6 mg tablet mg PO 09/24/20 09/25/20 Unknown History Exam Exam Date and Time: September 27, 2020 1050 Height,Weight and Vital Signs: Height 5 ft 2 in Weight 65.771 kg Pertinent Lab Results Pertinent Lab Results: Laboratory Tests 09/17/20 09/17/20 08:24 08:24 WBC 4.4 L Hgb 13.5 Hct 40.2 Plt Count 269 Sodium 137 Potassium 3.7 Chloride 104 Carbon Dioxide 26 BUN 12 Creatinine 0.69 Narrative Narrative: EKG 08/2020 Normal sinus rhythm Normal ECG When compared with ECG of 18-JAN-2020 05:59, No significant change was found Assessment and Plan Assessment Anesthesia Assessment: Chart Reviewed Documented by User: Becca Horan 09/28/20 08:24 [facility] Past Medical History Medical History (Updated 09/25/20 @ 21:40 by Margoth Loredo NP) Colon polyps Constipation GERD (gastroesophageal reflux disease) HPV (human papilloma virus) anogenital infection Nausea Vertigo Family History Family History Mother Colon cancer Maternal Grandfather No problems noted. Father Asthma Brother Lymphoma involving liver Maternal Aunt Breast cancer Surgical History Surgical History H/O LEEP History of appendectomy History of cholecystectomy History of surgery History of tubal ligation Hx of colonoscopy Social History Social History Alcohol intake: never Smoking Status: Former smoker Smoking Quit Date: 1990 Use of substances other than those prescribed or required for medical reasons: No Advance Directives: No Advance Directives Information Provided: No Advance Directives on File: No Sexual orientation: Straight/Heterosexual Gender identity: female Meds Allergies Allergy/AdvReac Type Severity Reaction Status Date / Time IV MED FOR VOMITING Allergy Unknown unknown Uncoded 08/16/20 08:42 Home Medications Medication Instructions Recorded Confirmed Last Taken Type sennosides 8.6 mg tablet mg PO 09/24/20 09/25/20 Unknown History Exam Airway Mallampati Class: II TM Dist: >3cm Neck ROM: Full Heart: RRr Lungs: CTa BL Assessment and Plan Assessment Anesthesia Assessment: Anesthesia Plan Discussed and Chart Reviewed Final Anesthetic Review NPO: Yes ASA Class: II Final Preanesthetic Review: No Changes in Pt Med Stat and Consent Obtained/Reviewed Patient Risk: Intermediate Procedure Risk: Intermediate Anesthetic Plan Anesthetic Plan: MAC: Disposition: Standard PACU
[2020-09-28 07:57] VITALS: BP 161/98; PULSE 85; RESP 16; TEMP 36.7; O2SAT 96
[2020-09-28] MEDS: Lactated Ringers 1,000 ML 100 ML IVCONT (08:11)
--- NOTE | 2020-09-28 08:24 | P.OP_ITS ---
Operative Note Operative Note Date of Service: 09/28/20 Narrative: Pre-op diagnosis: Colon cancer screening, hx of colon polyps, family history of colon cancer, chronic constipation GERD, abdominal pain Post-op diagnosis: other (Colon polyps, diverticulosis, proctitis, hemorrhoids, gastritis, GERD, abdominal pain) Procedure: FLEXIBLE TRANSORAL UPPER GASTROINTESTINAL ENDOSCOPY WITH BIOPSIES AND COLONOSCOPY TILL CECUM WITH BIOPSIES UPPER ENDOSCOPY Consent: Indications for the procedure and potential complications of bleeding, perforation, reaction to medications and missed diagnosis were discussed with the patient and informed consent was obtained. Instrument: Olympus GIF H 190 mid size upper endoscope Monitoring: Vital signs and clinical assessment, continuous EKG monitoring, Pulse oximetry, Carbon Dioxide monitoring and blood pressure monitoring were done throughout the procedure. Procedure: The patient was placed in the left lateral decubitis position and pre-procedure medications were administered and a bite block was placed. The endoscope was inserted into the mouth and advanced under direct vision to the third part of duodenum. A careful inspection was made as the upper endoscope was withdrawn including a retroflexed examination of the proximal stomach; Findings and interventions are described below. Findings: Larynx: Normal Esophagus: GE junction at 36 cms. No esophagitis or Morelos's. Stomach: Moderate gastric erythema. Biopsies were obtained. Grade 2 flap valve on retroflexed examination of the cardia. Duodenum: Normal bulb and descending duodenum. Biopsies were obtained from 3rd part of the duodenum to check for celiac sprue Intervention: Biopsies as noted above COLONOSCOPY PROCEDURE NOTE Consent: Indications for the procedure and potential complications of bleeding, perforation, reaction to medications and missed diagnosis were discussed with the patient and informed consent was obtained. Instrument: Olympus PCF H 190 L variable stiffness pediatric colonoscope Monitoring: Vital signs and clinical assessment, intermittent blood pressure monitoring, continuous EKG monitoring, Pulse oximetry and Carbon Dioxide monitoring were done throughout the procedure. Colon withdrawl time was 25 minutes. Procedure: The patient was placed in the left lateral decubitis position and pre-procedure medications were administered. After a digital rectal examination of the ano-rectum, the video colonoscope was inserted into the rectum and advanced through the colon to the cecum. The colonoscope was slowly withdrawn in a retrograde panoramic fashion and the colon mucosa was carefully examined including a retroflexed view of the rectum. Findings and interventions are described below. Procedure Difficulty: Colon was long and tortuous and there was some loop f ormation, no maneuvers were required. Findings: Terminal Ileum: Not evaluated Cecum: Normal Ascending Colon: Normal Transverse Colon: Two 4-5 mm diminutive appearing polyps removed with the cold biopsy. Descending Colon: Moderate diverticulosis Sigmoid Colon: Moderate diverticulosis Rectum: Patchy erythema in the rectum -biopsies were obtained to check for proctitis Ano-rectum: Moderate internal hemorrhoids Colon preparation: Good after some irrigation Impression and Post Procedure Diagnosis: Endoscopy Findings: STOMACH: Gastritis DUODENUM: Normal, biopsies were obtained from 3rd part of duodenum to check for celiac sprue Colonoscopy Findings: Two polyps removed Moderate diverticulosis seen in the []colon Moderate hemorrhoids on retroflexed exam. Plan: Await pathology results Patient has an appointment on 10/06/20 in the GI Clinic with JAE Guy. Repeat Colonoscopy interval based on path results - in 5 years if polyps are adenomatous and due to a hx of adenomatous polyps. Above findings were reviewed with the patient and GERD, Gastritis, colon polyps and diverticulosis handouts were given in the discharge area Surgeon: Tessa Frederick MD Anesthesia: MAC (Dr Camarena & Dr De Jesus) Estimated blood loss (mL): 0 Pathology: other (A. Small bowel, B. Gastric antrum, C. TC polyps x 2, D. Rectal bx) Condition: stable Disposition: PACU
--- NOTE | 2020-09-28 08:24 | MHC.SHP ---
Pre-Procedural Eval Section B Chief Complaint: screening Details of Present Illness: a 54-year-old female with family history of colon cancer personal history of polyps referred for colonoscopy. She does constipation- OTC not much help. for when she does not have a BM for many days makes her nauseous-when she eventually goes her symptoms improved. She does strain She has no rectal bleeding. she expresses her fears of getting cancer, her mother in her 60s of colon cancer Relevant Family History (Specify if Yes): Yes Relevant Social History: None Present Medications: see Short Stay Collaborative assessment Medical History: Significant History (hx of colon polyps, GERD, chronic constipation, ovarian cyst) History of Previous Operations: Relevant previous surgery/procedure and date(s) (status post tubal ligation) Allergies: Allergies Allergy/AdvReac Type Severity Reaction Status Date / Time IV MED FOR VOMITING Allergy Unknown unknown Uncoded 08/16/20 08:42 Review of Systems Sugical H&P ROS: Negative: Constitution, Cardiovascular and Respiratory and Yes, Specify: Gastrointestinal (GERD, abdominal pain) Exam Surgical H&P Exam: Normal: Heart, Normal: Lungs and Normal: Extremities and Significant Findings: Abdomen (epigastric tenderness) Plan Diagnosis/Plan: Change (EGD added due to hx of GERD and abdominal pain with recent ED visits) I have reviewed the history and physical and performed a pertinent physical examination on my patient. No changes have occurred unless specified.
[2020-09-28 09:42] VITALS: BP 100/69; PULSE 73; RESP 16; TEMP 35.7; O2SAT 100
[2020-09-28 09:57] VITALS: BP 128/62; PULSE 61; RESP 18; O2SAT 99
[2020-09-28 10:12] VITALS: BP 136/62; PULSE 58; RESP 18; TEMP 36.1; O2SAT 99
== END 2020-09-28 10:47 | disposition home or self-care (01) ==
PROVIDERS: PCP Internal Medicine; Visit Provider Internal Medicine Gastroenterology
PROC: (CPT 45380; principal; 2020-09-28 08:20)
DX: Z12.11 Encounter for screening for malignant neoplasm of colon (principal); Z80.0 Family history of malignant neoplasm of digestive organs; Z86.010 Personal history of colon polyps; K63.5 Polyp of colon; K57.30 Diverticulosis of large intestine without perforation or abscess without bleeding; K64.8 Other hemorrhoids; K59.00 Constipation, unspecified; K62.89 Other specified diseases of anus and rectum; K29.50 Unspecified chronic gastritis without bleeding; Z79.899 Other long term (current) drug therapy; K21.9 Gastro-esophageal reflux disease without esophagitis; Z90.49 Acquired absence of other specified parts of digestive tract; Z87.891 Personal history of nicotine dependence
CPT/HCPCS: 45380; 43239; 88305; 88342

== ENCOUNTER 2020-09-29 16:09 | Outpatient (REF) | payer OTHER, SELFPAY ==
--- NOTE | ~2020-09-29 | MM_ITS ---
EXAMINATION: MM SCREENING DIGITAL BREAST TOMOSYNTHESIS, BILATERAL CLINICAL INFORMATION: Screening. Asymptomatic. The lifetime risk of breast cancer based on the Tyrer-Cuzick Model is 10.5%. COMPARISON: Mammography: May 22, 2019 and February 25, 2014 TECHNIQUE: Digital breast tomosynthesis is performed in both the craniocaudal and mediolateral oblique views along with computer-aided detection (CAD). Synthesized 2D images are generated from the tomosynthesis. FINDINGS: There are scattered areas of fibroglandular density (ACR BI-RADS breast composition Category b). There are no significant masses, abnormal calcifications, or other abnormalities. MM/MM tomosynthesis screening BI IMPRESSION: There are no significant changes from prior study. ASSESSMENT: BI-RADS 1: Negative RECOMMENDATION: Routine annual mammography screening. This patient's information was entered into a reminder system with a target due date for their next mammogram.
== END 2020-09-29 16:10 | disposition home or self-care (01) ==
LOC: HO.MAMMO 16:09
PROVIDERS: PCP Internal Medicine; Visit Provider Internal Medicine
DX: Z12.31 Encounter for screening mammogram for malignant neoplasm of breast (principal)
CPT/HCPCS: 77063; 77067

== ENCOUNTER → 2020-10-06 11:35 | Outpatient (BNVA) | payer OTHER, SELFPAY | PROVIDERS: PCP Internal Medicine; Visit Provider Physician Assistant | DX: K21.9 Gastro-esophageal reflux disease without esophagitis (principal); R10.9 Unspecified abdominal pain | CPT/HCPCS: 99212 ==

== ENCOUNTER 2020-10-12 11:44 | Outpatient (REF) | payer OTHER, SELFPAY ==
--- NOTE | ~2020-10-12 | XR_ITS ---
EXAMINATION: XR LUMBOSACRAL SPINE CLINICAL INFORMATION: Back pain COMPARISON: None TECHNIQUE: Three views of the lumbosacral spine. FINDINGS: The vertebral bodies and posterior elements are normal. The disc spaces are preserved and the vertebral alignment is normal. The paraspinal soft tissues are normal. XR/XR lumbar spine 2-3V IMPRESSION: Unremarkable examination.
== END 2020-10-12 11:45 | disposition home or self-care (01) ==
LOC: HO.XRAY 11:44
PROVIDERS: PCP Internal Medicine; Visit Provider Internal Medicine
DX: M54.9 Dorsalgia, unspecified (principal)
CPT/HCPCS: 72100

== ENCOUNTER 2020-11-17 14:00 | Outpatient (RCR) | payer OTHER, SELFPAY ==
--- NOTE | 2020-11-04 15:23 | MHC.PT.EP ---
[facility] [place] Office [place] Office [place] Office [address] Eber Taveras [address] [phone] F: [phone] F: [phone] F: [phone] F: [phone] Physical Therapy Plan of Care Date of Evaluation: 11/04/20 Date of Surgery: Diagnosis: Dorsalgia unspecified Assessment: Pt is a 54 y/o female referred to skilled for unspecified dorsalgia. Assessment reveals pain on the left side of the mid thoracic spine (occasionally on the right side) radiating around to the abdomen, decreased strength, mild impaired lumbar and hip ROM, hypomobility of thoracic spine, tenderness to palpation, and altered posture. Related functional limitations include: sweeping, mopping, leaning over sink to do this dishes, standing for greater than 1-2 hours, and sitting in a slouched position. The Pt will benefit from skilled PT services 2x/week for 5 weeks in order to reduce impairments and improve limitations. Frequency and Duration: The patient will be seen 2x/week for 5 weeks Short Term Goals: -In 2 weeks, Pt will report <5/10 pain. -In 3 weeks, Pt to demonstrate I w/ initial HEP stretching exercises Halfway Goals: -In 5 weeks, Pt to demonstrate the ability to perform work sim tasks w/o pain. -In 5 weeks, Pt to demonstrate improved periscapular strength. -In 5 weeks, Pt to demonstrate improvement in outcome measure by at least 9 points. Treatment Plan: Modalities to reduce pain, spasms and effusion. Manual therapy to restore motion and function. Therapeutic exercise to improve strength and flexibility. Neuromuscular re-education for posture and balance. Therapeutic activities to return to functional activities of daily living. Electronically signed by: Tere Llanes PT, DPT Please sign and return to therapist. Thank you for your referral.
== END 2021-03-29 15:41 | disposition home or self-care (01) ==
LOC: HO.PT 14:00
PROVIDERS: PCP Internal Medicine; Visit Provider Internal Medicine
DX: M54.9 Dorsalgia, unspecified (principal)
CPT/HCPCS: 97110; 97140; 97161

== ENCOUNTER 2020-12-01 14:55 | Outpatient (REF) | payer OTHER, SELFPAY ==
--- NOTE | ~2020-12-01 | US_ITS ---
EXAMINATION: US PELVIS ULTRASOUND CLINICAL INFORMATION: Follow-up complicated left intraovarian cyst. Age 55. Postmenopausal COMPARISON: Ultrasound pelvis 09/16/2020, 07/08/2019, CT abdomen pelvis noncontrast 09/17/2020. TECHNIQUE: Ultrasound of the pelvis is performed using both transabdominal and transvaginal transducers along with Doppler. Transvaginal imaging is performed due to inadequate visualization transabdominally. FINDINGS: Uterus: The uterus is anteverted and measures 6.4 x 3.6 x 4.3 cm. Volume 52 mL. The double wall endometrial thickness is 2 mm. The uterus is smooth in contour. There is a small stable intramural fibroid posterior body just under 1 cm similar to prior exams. Adnexa: Both ovaries are visualized. There is no interval new adnexal mass and no pelvic ascites. There is normal color flow to the adnexa. No torsion.. Right ovary measures 2.6 x 1.5 x 1.9 cm. Volume 4 mL. No right adnexal mass. Left ovary measures 3.3 x 2.1 x 3.2 cm. Volume 12 mL. The left adnexal cyst for follow-up measures 2.6 x 2.0 x 2.2 cm. Prior measurements are 2.3 x 2.0 x 2.2 cm. Prior ultrasound showed areas of avascular geographic internal echogenicity measuring 1.1 cm in 0.5 cm respectively. Current exam shows a central area of rounded intracystic echogenicity measuring only 0.5 cm. There is one image with peripheral color flow perpendicular to the cyst wall near this area. Discussion with air director reveals that the color image was felt to be artifact. No definite internal or peripheral color flow appreciated at real time exam. No internal septation or peripheral wall thickening. US/US pelvic complete IMPRESSION: 1. Uterus: Small intramural posterior body fibroid just under 1 cm, stable. 2. Adnexa: Left adnexal cyst similar in size, 2.6 x 2.2 cm, prior measurement 2.3 x 2.2 cm. The geographic internal echogenicity is decreased, although still visible on one of the images and with question of adjacent color flow. MR pelvis without and with gadolinium would be helpful to comprehensively characterize the complicated cyst left ovary. If MR is not performed, then follow up pelvic ultrasound would be recommended in 6-12 weeks.
--- NOTE | ~2020-12-01 | US_ITS ---
EXAMINATION: US PELVIS ULTRASOUND CLINICAL INFORMATION: Follow-up complicated left intraovarian cyst. Age 55. Postmenopausal COMPARISON: Ultrasound pelvis 09/16/2020, 07/08/2019, CT abdomen pelvis noncontrast 09/17/2020. TECHNIQUE: Ultrasound of the pelvis is performed using both transabdominal and transvaginal transducers along with Doppler. Transvaginal imaging is performed due to inadequate visualization transabdominally. FINDINGS: Uterus: The uterus is anteverted and measures 6.4 x 3.6 x 4.3 cm. Volume 52 mL. The double wall endometrial thickness is 2 mm. The uterus is smooth in contour. There is a small stable intramural fibroid posterior body just under 1 cm similar to prior exams. Adnexa: Both ovaries are visualized. There is no interval new adnexal mass and no pelvic ascites. There is normal color flow to the adnexa. No torsion.. Right ovary measures 2.6 x 1.5 x 1.9 cm. Volume 4 mL. No right adnexal mass. Left ovary measures 3.3 x 2.1 x 3.2 cm. Volume 12 mL. The left adnexal cyst for follow-up measures 2.6 x 2.0 x 2.2 cm. Prior measurements are 2.3 x 2.0 x 2.2 cm. Prior ultrasound showed areas of avascular geographic internal echogenicity measuring 1.1 cm in 0.5 cm respectively. Current exam shows a central area of rounded intracystic echogenicity measuring only 0.5 cm. There is one image with peripheral color flow perpendicular to the cyst wall near this area. Discussion with machine burrer reveals that the color image was felt to be artifact. No definite internal or peripheral color flow appreciated at real time exam. No internal septation or peripheral wall thickening. US/US transvaginal IMPRESSION: 1. Uterus: Small intramural posterior body fibroid just under 1 cm, stable. 2. Adnexa: Left adnexal cyst similar in size, 2.6 x 2.2 cm, prior measurement 2.3 x 2.2 cm. The geographic internal echogenicity is decreased, although still visible on one of the images and with question of adjacent color flow. MR pelvis without and with gadolinium would be helpful to comprehensively characterize the complicated cyst left ovary. If MR is not performed, then follow up pelvic ultrasound would be recommended in 6-12 weeks.
== END 2020-12-01 14:56 | disposition home or self-care (01) ==
LOC: HO.US 14:55
PROVIDERS: PCP Internal Medicine; Visit Provider Obstetrics & Gynecology
DX: N83.299 Other ovarian cyst, unspecified side (principal)
CPT/HCPCS: 76830; 76856

== ENCOUNTER → 2020-12-06 11:08 | Outpatient (BNVA) | payer OTHER, SELFPAY | PROVIDERS: PCP Internal Medicine; Visit Provider Obstetrics & Gynecology ==

== ENCOUNTER 2020-12-17 08:42 | Outpatient (REF) | payer OTHER, SELFPAY ==
[2020-12-20 14:52] LABS: CA-125 5 U/mL (<35)
== END 2020-12-17 08:43 | disposition home or self-care (01) ==
LOC: HO.LAB 08:42
PROVIDERS: PCP Internal Medicine; Visit Provider Obstetrics & Gynecology
DX: N83.299 Other ovarian cyst, unspecified side (principal)
CPT/HCPCS: 36415; 86304

== ENCOUNTER 2021-01-18 11:24 | Outpatient (REF) | payer OTHER, SELFPAY ==
--- NOTE | ~2021-01-18 | XR_ITS ---
EXAMINATION: XR THORACOLUMBAR SPINE CLINICAL INFORMATION: Dorsalgia COMPARISON: None TECHNIQUE: 3 views thoracic spine. FINDINGS: The vertebral alignment is normal. No intrinsic bony abnormality. The disc heights and neural foramina are well maintained. The endplates and posterior elements are normal with the exception of some mild osteophyte formation at one level anteriorly in the lower thoracic spine. No fracture or subluxation. The surrounding prevertebral soft tissues are unremarkable. Clips present in the gallbladder fossa. XR/XR thoracic spine 2V IMPRESSION: No compression fractures or subluxations are identified. The disc spaces are preserved. No endplate changes are seen. The prevertebral soft tissues are normal. The some minimal spondylitic changes are present at one level. Foramina are patent.
== END 2021-01-18 11:25 | disposition home or self-care (01) ==
LOC: HO.XRAY 11:24
PROVIDERS: PCP Internal Medicine; Visit Provider Internal Medicine
DX: M54.9 Dorsalgia, unspecified (principal)
CPT/HCPCS: 72070

== ENCOUNTER 2021-03-07 12:51 | Outpatient (REF) | payer OTHER, SELFPAY ==
--- NOTE | ~2021-03-07 | US_ITS ---
EXAMINATION: US PELVIS COMPLETE US TRANSVAGINAL CLINICAL INFORMATION: Ovarian cyst. COMPARISON: Ultrasound pelvis 09/06/2020 TECHNIQUE: Transabdominal and transvaginal imaging of pelvis is performed. FINDINGS: The uterus is anteverted and anteflexed measuring 7.0 cm in length, 3.4 cm in AP and 3.4 cm in transverse dimension. The endometrial thickness is 0.2 cm. The uterus is homogeneous in echotexture. There is a focal hypoechoic lesion in the posterior body of the uterus measuring 0.8 x 0.6 x 0.8 cm. Previously, it measured 0.7 x 0.8 x 0.8 cm. No additional lesions seen. There are small anechoic cysts seen in the cervix. No free fluid visualized in the cul-de-sac. The right ovary measures 2.5 x 1.2 x 2.2 cm. There is an anechoic cyst measuring 0.74 x 0.65 x 0.7 cm. Previously, the right ovary measured 2.6 x 1.9 x 1.5 cm. The left ovary measures 3.1 x 1.6 x 3.5 cm and volume 9.1 mL. There is an anechoic cyst measuring 2.3 x 1.8 x 2.0 cm. Previously, the left ovary measured 3.2 x 3.3 x 2.1 cm. US/US transvaginal IMPRESSION: Small uterine fibroid in the posterior body of the uterus, stable. Small nabothian cysts. Bilateral ovarian small cysts are noted.
--- NOTE | ~2021-03-07 | US_ITS ---
EXAMINATION: US PELVIS COMPLETE US TRANSVAGINAL CLINICAL INFORMATION: Ovarian cyst. COMPARISON: Ultrasound pelvis 09/06/2020 TECHNIQUE: Transabdominal and transvaginal imaging of pelvis is performed. FINDINGS: The uterus is anteverted and anteflexed measuring 7.0 cm in length, 3.4 cm in AP and 3.4 cm in transverse dimension. The endometrial thickness is 0.2 cm. The uterus is homogeneous in echotexture. There is a focal hypoechoic lesion in the posterior body of the uterus measuring 0.8 x 0.6 x 0.8 cm. Previously, it measured 0.7 x 0.8 x 0.8 cm. No additional lesions seen. There are small anechoic cysts seen in the cervix. No free fluid visualized in the cul-de-sac. The right ovary measures 2.5 x 1.2 x 2.2 cm. There is an anechoic cyst measuring 0.74 x 0.65 x 0.7 cm. Previously, the right ovary measured 2.6 x 1.9 x 1.5 cm. The left ovary measures 3.1 x 1.6 x 3.5 cm and volume 9.1 mL. There is an anechoic cyst measuring 2.3 x 1.8 x 2.0 cm. Previously, the left ovary measured 3.2 x 3.3 x 2.1 cm. US/US pelvic complete IMPRESSION: Small uterine fibroid in the posterior body of the uterus, stable. Small nabothian cysts. Bilateral ovarian small cysts are noted.
== END 2021-03-07 12:52 | disposition home or self-care (01) ==
LOC: HO.US 12:51
PROVIDERS: Visit Provider Obstetrics & Gynecology
DX: N83.202 Unspecified ovarian cyst, left side (principal); N83.201 Unspecified ovarian cyst, right side; D25.9 Leiomyoma of uterus, unspecified; N88.8 Other specified noninflammatory disorders of cervix uteri
CPT/HCPCS: 76830; 76856

== ENCOUNTER → 2021-03-14 11:28 | Outpatient (BNVA) | payer OTHER, SELFPAY | PROVIDERS: PCP Internal Medicine; Visit Provider Obstetrics & Gynecology ==

== ENCOUNTER 2021-03-29 13:30 | Outpatient (REF) | payer OTHER, SELFPAY | END 2021-03-29 13:31 | disposition home or self-care (01) | LOC: HO.LAB 13:30 | PROVIDERS: PCP Internal Medicine; Visit Provider Obstetrics & Gynecology | DX: D06.9 Carcinoma in situ of cervix, unspecified (principal) | CPT/HCPCS: 57454; 88305 ==

== ENCOUNTER 2021-04-04 12:46 | Emergency (ER) | payer OTHER, SELFPAY ==
[2021-04-04 13:40] VITALS: BP 148/102; PULSE 83; RESP 18; TEMP 36.6; O2SAT 99; BMI 25.9
[2021-04-04 16:00] VITALS: BP 130/76; PULSE 80; RESP 16; TEMP 36.8; O2SAT 95
[2021-04-04] MEDS: Lidocaine HCl 1 % 20 ML VIAL 10 ML INFILTRATI (17:05)
--- NOTE | 2021-04-04 17:23 | ED_ITS ---
HPI - Skin/Abscess/Foreign Bdy General Chief complaint: Skin/Abscess/Foreign Body Stated complaint: bug bite Time Seen by Provider: 04/04/21 14:51 Source: patient Mode of arrival: ambulatory Limitations: no limitations History of Present Illness HPI narrative: 55-year-old female presents for what she thinks is a rash from a bug bite on her right upper buttock. This happened 3 days ago when she was a helping an elderly woman in her home. Related Data Previous Rx's Medication Instructions Recorded famotidine 20 mg tablet (Pepcid) 20 mg PO DAILY PRN #30 tab 11/10/20 cephalexin 500 mg capsule 500 mg PO Q6H 5 Days #20 cap 04/04/21 sulfamethoxazole 800 1 tab PO BID 7 Days #14 tab 04/04/21 mg-trimethoprim 160 mg tablet (Bactrim DS) Allergies Allergy/AdvReac Type Severity Reaction Status Date / Time IV MED FOR VOMITING Allergy Unknown unknown Uncoded 10/06/20 12:04 Review of Systems Review of Systems: Constitutional : No Weight loss, No Fever, No Chills, No Night Sweats,No Fatigue, No Malaise ENT/Mouth : No Hearing loss, No Ear Pain, No Nasal Congestion, NoSinus Pain, No Hoarseness, No sore throat, No Rhinorrhea, NoSwallowing Difficulty Eyes: No Eye Pain, No Swelling, No Redness, No Foreign Body, NoDischarge, No Vision Changes Cardiovascular : No Chest Pain, No SOB, No Dyspnea on Exertion, NoOrthopnea, No Edema, No Palpitations Respiratory : No Cough, No Sputum, No Wheezing, No Smoke Exposure, No Dyspnea Gastrointestinal : No Nausea, No Vomiting, No Diarrhea, NoConstipation, No abdominal Pain, No Hematochezia, No Melena Genitourinary : no irregular bleeding, No Dysuria, No UrinaryFrequency, No Hematuria, No Urinary Incontinence, No Urgency, No FlankPain, No Urinary Flow Changes, No Hesitancy Musculoskeletal : No joint pain, No Myalgias, No Joint Swelling Skin : Rash right buttock Neuro : No Weakness, No Numbness, No Paresthesias, No Loss ofConsciousness, No Dizziness, No Headache PMFSH Past Medical History Medical History Abdominal pain Colon polyps Constipation GERD (gastroesophageal reflux disease) HPV (human papilloma virus) anogenital infection Nausea Vertigo Surgical History H/O LEEP History of appendectomy History of cholecystectomy History of surgery History of tubal ligation Hx of colonoscopy Family History Family History Mother Colon cancer Maternal Grandfather No problems noted. 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 Sexual orientation: Straight/Heterosexual Gender identity: Female Physical Exam Vital Signs: Vital Signs: Last Vital Signs Temp 98.2 F 04/04/21 16:00 Pulse 80 04/04/21 16:00 Resp 16 04/04/21 16:00 BP 130/76 04/04/21 16:00 Pulse Ox 95 04/04/21 16:00 Body Mass Index 25.9 Const: General: cooperative, no acute distress, well developed, alert and awake Nutritional Appearance: well nourished Orientation/consciousness: patient oriented x3 Limitations: no limitations Eyes: Conjunctivae: conjunctivae normal Pupils: Equal, round and reactive pupils present EOM: EOMs intact bilaterally Neck: Neck: Yes full ROM, Yes no lymphadenopathy and Yes supple Resp: Effort & Inspection: normal respiratory effort and able to speak in complete sentences Auscultation: clear to auscultation bilaterally, no crackles, no rales, no rhonchi and no wheezes Cardio: Rate: regular rate Rhythm: regular rhythm Heart sounds: S1 normal heart sound present and S2 normal heart sound present Skin: Other: Area of redness swelling and warmth top of right buttock Neuro: General: patient oriented x3, tone normal and moves all extremities Cranial nerves: Yes Equal, round and reactive pupils present Extrem: General: Yes normal to inspection and Yes full ROM Psych: Appearance: grossly normal Affect: normal affect Attitude: cooperative Thought process: Normal thought process present Course Course Course Narrative: 55-year-old female has palpable right lesion on buttocks that is indurated, red, and warm. I can feel under her skin, this appears to be an abscess. Area is not fluctuant, however I tried to do incision and drainage. No purulence was expressed, however did do wound culture anyways. Started patient on Bactrim, follow-up in 3 days to have someone look at this wound. Return sooner if worsening redness, fever, warmth, pain. Discharge Plan Discharge Clinical Impression: Abscess Patient Disposition: Home, Self-Care Instructions: Abscess Follow-up (ED) Additional Instructions: Please fill your prescriptions and start them today. Please return to be seen in 2 days, you may go to your primary care provider, or you may return here. I would like somebody to do a recheck of your abscess. Unfortunately we were unable to express any pus from your abscess today. You may need to have another procedure to express pus later, but hopefully antibiotics will take care of this. Please return if you have worsening pain, fevers, or any other new or concerning symptoms Prescriptions: New sulfamethoxazole-trimethoprim [Bactrim DS] 800-160 mg tablet 1 tab PO BID 7 Days Qty: 14 RF: 0 cephalexin 500 mg capsule 500 mg PO Q6H 5 Days Qty: 20 RF: 0 No Action famotidine [Pepcid] 20 mg tablet 20 mg PO DAILY PRN (Reason: abdominal discomfort) Qty: 30 RF: 8 Interventions: ED Discharge Assessment Last Done: 04/04/21 17:41 Discharge Date/Time: 04/04/21 17:41
--- NOTE | 2021-04-04 17:40 | PC.NURSE ---
NON STICK DRESSING APPLIED TO PATIENT ABSCESS ON RIGHT BUTTOCK
== END 2021-04-04 17:41 | disposition home or self-care (01) ==
PROVIDERS: Emergency Provider Emergency Medicine; PCP Internal Medicine
DX: L02.31 Cutaneous abscess of buttock (principal)
CPT/HCPCS: 10060; 87071; 87073; 87077; 87186; 87205; 99284

== ENCOUNTER → 2021-04-11 10:27 | Outpatient (BNVA) | payer OTHER, SELFPAY | PROVIDERS: PCP Internal Medicine; Referring Provider Internal Medicine; Visit Provider Surgery | DX: L02.31 Cutaneous abscess of buttock (principal) | CPT/HCPCS: 99202 ==

== ENCOUNTER → 2021-04-12 16:13 | Outpatient (BNVA) | payer OTHER, SELFPAY | PROVIDERS: PCP Internal Medicine; Visit Provider Obstetrics & Gynecology ==

== ENCOUNTER 2021-10-24 11:13 | Outpatient (REF) | payer OTHER, SELFPAY ==
--- NOTE | ~2021-10-24 | XR_ITS ---
EXAMINATION: XR CERVICAL SPINE CLINICAL INFORMATION: Cervicalgia. COMPARISON: None. TECHNIQUE: 4 views of the cervical spine were obtained. FINDINGS: No evidence of acute compression deformities or malalignment. The atlantoaxial and atlantooccipital articulations are maintained. There is mild multilevel cervical spondylosis with disc space narrowing and uncovertebral hypertrophy. Prevertebral soft tissues are within normal limits. Imaged lung apices are clear. XR/XR cervical spine 2V IMPRESSION: No acute fractures or malalignment. Mild cervical spondylosis which could be further assessed with an MR of the cervical spine if clinically indicated for nerve root impingement and central canal stenosis.
--- NOTE | ~2021-10-24 | XR_ITS ---
EXAMINATION: XR LUMBOSACRAL SPINE CLINICAL INFORMATION: Pain. COMPARISON: Radiograph of the lumbar spine dated from 10/12/2020. TECHNIQUE: Three views of the lumbosacral spine. FINDINGS: No acute compression deformities or malalignment. Mild disc space narrowing and facet arthropathy at L5-S1, stable since 2020. Sacroiliac joints are symmetric. Nonobstructive bowel gas pattern. Right upper quadrant cholecystectomy clips. XR/XR lumbar spine 2-3V IMPRESSION: No acute compression deformities or malalignment. Mild lumbar spondylosis at L5-S1.
== END 2021-10-24 11:14 | disposition home or self-care (01) ==
LOC: HO.XRAY 11:13
PROVIDERS: PCP Internal Medicine; Visit Provider Internal Medicine
DX: M54.2 Cervicalgia (principal); M54.9 Dorsalgia, unspecified
CPT/HCPCS: 72040; 72100

== ENCOUNTER 2022-04-10 08:01 | Outpatient (REF) | payer OTHER, SELFPAY ==
[2022-04-10 08:14] LABS: MANUAL DIFF FLAG NO
[2022-04-10 08:21] LABS: Basophils Percent Auto 0.3 % (0-2); Eosinophils Absolute Auto 0.1 X10*3/uL (0.0-0.4); Eosinophils Percent Auto 1.6 % (0-4); Hemoglobin 14.1 g/dl (12.0-16.0); Imm Gran Abs Auto 0.01 X10*3/uL (0.00-0.03); Imm Gran Pct Auto 0.1 % (0.0-0.4); Lymphocytes Absolute Auto 3.4 X10*3/uL (1.2-4.9); Lymphocytes Percent Auto 45.2 % (20-40); Mean Corpuscular HGB Conc 33.6 g/dl (31.0-35.0); Mean Corpuscular Hemoglobin 30.9 pg (27.0-33.0); Mean Corpuscular Volume 92.1 fL (80.0-98.0); Mean Platelet Volume 9.2 fL (9.4-12.3); Monocytes Absolute Auto 0.6 X10*3/uL (0.1-1.2); Monocytes Percent Auto 8.3 % (2-11); Neutrophils Absolute Auto 3.4 x10*3/uL (2.0-8.3); Neutrophils Percent Auto 44.5 % (45-73); Platelet Count 288 X10*3/uL (160-400); Red Blood Count 4.56 X10*6/uL (4.20-5.50); Red Cell Distribution Width 12.1 % (11.0-16.0); White Blood Count 7.6 X10*3/uL (4.8-10.8)
[2022-04-10 08:41] LABS: Alanine Aminotransferase 26 U/L (0-31); Albumin Level 4.5 g/dL (3.5-5.0); Alkaline Phosphatase 112 U/L (39-117); Anion Gap 14 (12-20); Aspartate Amino Transferase 25 U/L (5-31); Bilirubin Total 0.6 mg/dL (0.0-1.0); Blood Urea Nitrogen 13 mg/dL (9-16); Calcium 9.6 mg/dL (8.4-10.2); Carbon Dioxide 24 mmol/L (22-29); Chloride 107 mmol/L (96-108); Cholesterol 225 mg/dL; Estimated Glomerular Filt Rate > 60; Glucose Fasting 107 mg/dL (60-99); HDL Cholesterol 50 mg/dL; LDL Cholesterol Calculated 144 mg/dl; Potassium 4.1 mmol/L (3.3-5.1); Sodium 141 mmol/L (135-145); Total Protein 7.6 g/dL (6.5-8.0); Triglycerides 159 mg/dL
[2022-04-10 09:01] LABS: Thyroid Stimulating Hormone 1.67 uIU/mL (0.32-4.0)
== END 2022-04-10 08:02 | disposition home or self-care (01) ==
LOC: HO.LAB 08:01
PROVIDERS: PCP Internal Medicine; Visit Provider Internal Medicine
DX: Z13.0 Encounter for screening for diseases of the blood and blood-forming organs and certain disorders involving the immune mechanism (principal); E78.5 Hyperlipidemia, unspecified; E03.9 Hypothyroidism, unspecified; I10 Essential (primary) hypertension
CPT/HCPCS: 36415; 80053; 80061; 84443; 85025

== ENCOUNTER 2022-04-13 13:51 | Outpatient (REF) | payer OTHER, SELFPAY ==
[2022-04-13 18:12] LABS: CT PCR NOT DETECTED (Not Detect.); NG PCR NOT DETECTED (Not Detect.)
[2022-04-17 19:47] LABS: HPV mRNA E6/E7 rflx Not Detected (Not Detected)
== END 2022-04-13 13:52 | disposition home or self-care (01) ==
LOC: HO.LNP 13:51
PROVIDERS: Visit Provider Obstetrics & Gynecology
DX: Z01.419 Encounter for gynecological examination (general) (routine) without abnormal findings (principal); Z11.51 Encounter for screening for human papillomavirus (HPV); R10.2 Pelvic and perineal pain
CPT/HCPCS: 87491; 87591; 87624; 88142

== ENCOUNTER 2022-06-16 03:47 | Emergency (ER) | payer OTHER, SELFPAY ==
--- NOTE | ~2022-06-16 | XR_ITS ---
EXAMINATION: XR PORTABLE CHEST CLINICAL INFORMATION: Cough. COVID positive. COMPARISON: None. TECHNIQUE: AP portable upright view of the chest FINDINGS: Lungs are clear. No consolidation, pneumothorax, or pleural effusion. Cardiac and mediastinal contours are normal. Pulmonary vasculature is unremarkable. Osseous structures are unremarkable. XR/XR chest 1V IMPRESSION: No acute cardiopulmonary findings
[2022-06-16 03:56] VITALS: BP 129/74; BP 134/88; PULSE 90; RESP 20; TEMP 37.4; O2SAT 97; BMI 25.1
--- NOTE | 2022-06-16 04:05 | ECG_ITS ---
Test Reason : CHEST PAIN Blood Pressure : / mmHG Vent. Rate : 093 BPM Atrial Rate : 093 BPM P-R Int : 180 ms QRS Dur : 084 ms QT Int : 372 ms P-R-T Axes : 038 001 049 degrees QTc Int : 462 ms Normal sinus rhythm Nonspecific T wave abnormality Abnormal ECG When compared with ECG of 17-SEP-2020 08:06, No significant change was found Referred By: Generic ED Physician Electronically Signed By:HALLEY ADAM MD
[2022-06-16 04:17] LABS: Hematocrit 37.9 % (37.0-47.0); Hemoglobin 13.1 g/dl (12.0-16.0); Mean Corpuscular HGB Conc 34.6 g/dl (31.0-35.0); Mean Corpuscular Hemoglobin 31.1 pg (27.0-33.0); Mean Platelet Volume 9.4 fL (9.4-12.3); Platelet Count 238 X10*3/uL (160-400); Red Blood Count 4.21 X10*6/uL (4.20-5.50); Red Cell Distribution Width 12.2 % (11.0-16.0); White Blood Count 7.1 X10*3/uL (4.8-10.8)
--- NOTE | 2022-06-16 04:25 | ED_ITS ---
HPI - URI/Sore Throat General Chief Complaint: Upper Respiratory Symptoms Stated Complaint: +Covid/Flu like Symptoms/CP Time Seen by Provider: 06/16/22 04:24 Source: patient Limitations: no limitations History of Present Illness HPI Narrative: Patient already been seen at against COVID has not received a booster dose comes here for 2 days of body aches headache nausea vomited 2 times patient did COVID test at home which was positive patient's daughter and her fiance also sick were positive COVID patient denies any shortness of breath has cough with headache and body aches nausea Related Data Previous Rx's Medication Instructions Recorded triamcinolone acetonide 0.5 % 1 appl topical TID #15 grams 05/11/21 topical cream triamcinolone acetonide 0.5 % 1 appl topical BID #15 grams 01/26/22 topical ointment meclizine 25 mg tablet 25 mg PO TID PRN dizziness #60 tabs 05/12/22 benzonatate 200 mg capsule 200 mg PO TID PRN cough #30 caps 06/16/22 tramadol 50 mg tablet 50 mg PO Q6H PRN pain #20 tabs 06/16/22 Allergies Allergy/AdvReac Type Severity Reaction Status Date / Time IV MED FOR VOMITING Allergy Unknown unknown Uncoded 04/13/22 12:39 Review of Systems Review of Systems: Yes all other systems are reviewed and are negative PMFSH Past Medical History Medical History Abdominal pain Abscess of buttock JESSE III (cervical intraepithelial neoplasia grade III) with severe dysplasia Colon polyps Constipation GERD (gastroesophageal reflux disease) HPV (human papilloma virus) anogenital infection Nausea Vertigo Surgical History H/O LEEP History of appendectomy History of cholecystectomy History of surgery History of tubal ligation Hx of colonoscopy Family History Family History Mother Colon cancer Maternal Grandfather No problems noted. 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 Oriented X3. No acute distress. ENT: Pharynx normal. Oral Mucosa moist Neck: Normal inspection. Neck supple. CVS: Normal heart rate and rhythm. Pulses normal. Respiratory: No respiratory distress. Equal air entry bilateral, no wheezing/rales/rhonchi Abdomen: Soft and nontender. Bowel sounds are present, no mass palpable, no CVA tenderness Skin: Skin warm and dry. Normal skin color. Normal skin turgor. Extremities: No lower extremity edema. No calf tenderness Neuro: Oriented X 3. No motor deficit. Medications Administered Discontinued Medications Generic Name Dose Route Start Last Admin Trade Name Freq PRN Reason Stop Dose Admin Sodium Chloride 1,000 mls @ 999 mls/hr 06/16/22 04:38 06/16/22 04:49 Ns IV 06/16/22 05:38 999 mls/hr .Q1H1M ONE Administration Ketorolac Tromethamine 30 mg 06/16/22 04:38 06/16/22 04:49 Ketorolac Tromethamine 30 Mg/Ml Vial IVPUSH 06/16/22 04:39 30 mg ONCE ONE Administration Ondansetron HCl 4 mg 06/16/22 04:38 06/16/22 04:50 Ondansetron Hcl 4 Mg/2 Ml Vial IVPUSH 06/16/22 04:39 4 mg ONCE ONE Administration MDM - URI/Sore Throat MDM Narrative Medical decision making narrative: Patient COVID-19 with body symptoms no significant shortness of breath discharge patient home on supportive treatment Medical Records Medical records narrative: Patient COVID-19 chest x-ray negative for infiltrate saturating 97% on room air discharge patient home on supportive treatment Lab Data Attestation: I reviewed the patient's lab results. Result diagrams: 06/16/22 04:13 06/16/22 04:13 Labs: Lab Results 06/16/22 06/16/22 06/16/22 Range/Units 04:13 04:13 04:13 WBC 7.1 (4.8-10.8) X10*3/uL RBC 4.21 (4.20-5.50) X10*6/uL Hgb 13.1 (12.0-16.0) g/dl Hct 37.9 (37.0-47.0) % MCV 90.0 (80.0-98.0) fL MCH 31.1 (27.0-33.0) pg MCHC 34.6 (31.0-35.0) g/dl RDW 12.2 (11.0-16.0) % Plt Count 238 (160-400) X10*3/uL MPV 9.4 (9.4-12.3) fL Absolute Nucleated RBC 0.000 (0.0-0.012) X10*3/uL Nucleated RBC % (auto) 0.0 (0.0-0.2) /100WBC Sodium 139 (135-145) mmol/L Potassium 3.7 (3.3-5.1) mmol/L Chloride 108 (96-108) mmol/L Carbon Dioxide 21 L (22-29) mmol/L Anion Gap 14 (12-20) BUN 11 (9-16) mg/dL Creatinine 0.73 (0.5-1.4) mg/dL Estim Creat Clear Calc 79.6 Estimated GFR > 60 Random Glucose 136 H (60-115) mg/dL Calcium 9.5 (8.4-10.2) mg/dL Troponin I High Sens < 3.5 (<3.5-17.0) ng/L COVID-19 (JESSICA) (Negative) COVID-19 Clin Com 06/16/22 Range/Units 04:13 WBC (4.8-10.8) X10*3/uL RBC (4.20-5.50) X10*6/uL Hgb (12.0-16.0) g/dl Hct (37.0-47.0) % MCV (80.0-98.0) fL MCH (27.0-33.0) pg MCHC (31.0-35.0) g/dl RDW (11.0-16.0) % Plt Count (160-400) X10*3/uL MPV (9.4-12.3) fL Absolute Nucleated RBC (0.0-0.012) X10*3/uL Nucleated RBC % (auto) (0.0-0.2) /100WBC Sodium (135-145) mmol/L Potassium (3.3-5.1) mmol/L Chloride (96-108) mmol/L Carbon Dioxide (22-29) mmol/L Anion Gap (12-20) BUN (9-16) mg/dL Creatinine (0.5-1.4) mg/dL Estim Creat Clear Calc Estimated GFR Random Glucose (60-115) mg/dL Calcium (8.4-10.2) mg/dL Troponin I High Sens (<3.5-17.0) ng/L COVID-19 (JESSICA) Positive A (Negative) COVID-19 Clin Com See Note Discharge Plan Discharge Clinical Impression: COVID-19 Patient Disposition: Home, Self-Care Instructions: COVID-19 (Coronavirus Disease 2019) (ED) Additional Instructions: Drink plenty of fluids Cough medicine as prescribed Tramadol for pain Report to ER if increased shortness of breath Prescriptions: New benzonatate 200 mg capsule 200 mg PO TID PRN (Reason: cough) Qty: 30 0RF tramadol 50 mg tablet 50 mg PO Q6H PRN (Reason: pain) Qty: 20 0RF No Action triamcinolone acetonide 0.5 % cream 1 appl topical TID Qty: 15 3RF triamcinolone acetonide 0.5 % ointment 1 appl topical BID Qty: 15 2RF meclizine 25 mg tablet 25 mg PO TID PRN (Reason: dizziness) Qty: 60 2RF
--- OUTSIDE RECORDS SUMMARY | 2022-06-16 04:27 | XMS_ITS ---
:1965 Author Organization [facility] Address [address] [place] [address] Care Team Providers Name Role Phone Mateo Perdomo Unavailable Unavailable PROBLEMS Type Condition ICD9-CM Code VEH29-SE Code Onset Condition SNO MED Code Dates Status Problem Family history of Z80.0 Active 31 9492544 colon cancer Problem Constipation, K59.00 Active 396295 08 unspecified constipation type Problem Encounter for Z12.12 Active 257335 007 screening for malignant neoplasm of rectum Problem Encounter for Z12.11 Active 223933 004 screening for malignant neoplasm of colon Problem History of Z86.010 Active [id number] adenomatous polyp of colon ALLERGIES Substance Reaction Event Type Date Status Penicillin Unknown Drug Allergy Jul, Active ENCOUNTERS Encounter Location Date Diagnosis [facility] Outpatient [address] [place] [address] Sep, JENNIFER Kumar [id number] [place] [address] [facility] [address] [place] [address] [place] [address], [place] nstipation, unspecified [facility] [address] JENNIFER Kumar constipation typ e K59.00 [id number] ; Family history of colon cancer Z80.0 ; H istory of adenomatous poly p of colon Z86.010 ; Encounter for screening fo r malignant neopla sm of colon Z12.11 and Encounter for sc reening for malignant ne oplasm of rectum Z12.12 [place] [address], [facility] [address] JENN[place]ER Kumar [id number] [place] [address], [facility] [address] J[place]ER Kumar [address] [facility] [address], [place] nstipation 564.00 ; [facility] [address] JENNIFER Kumar Family history o f colon [address] cancer V16.0 ; H istory of adenomatous poly p of colon V12.72 and Hemorrhoids 455. 6 [facility] Outpatient [address] November, [place] JENNIFER [id number] [facility] ER [address] November, [place] JENNIFER [id number] [facility] Outpatient [address] Feb, [place] JENNIFER [id number] [facility] Outpatient [address] Aug, [place] JENNIFER [id number] [facility] ER [address] Aug, [place] JENNIFER [id number] IMMUNIZATIONS No Known Immunizations SOCIAL HISTORY Never Assessed REASON FOR REFERRAL FUNCTIONAL STATUS PLAN OF CARE Activity Details Pending Test GI BIOPSY Future/Pending Procedure COLONOSCOPY [id number] VITAL SIGNS Weight 139 lbs 2015-08-05 Weight 140 lbs 2014-06-02 Height 63.5 in 2015-08-05 Height 63.5 in 2014-06-02 BMI 24.23 kg/m2 2015-08-05 BMI 24.41 kg/m2 2014-06-02 Heart Rate 60 /min 2014-06-02 Blood pressure systolic 128 mm Hg 2015-08-05 Blood pressure diastolic 76 mm Hg 2015-08-05 MEDICATIONS Medication Instructions Dosage Frequency Start End Date Duration Stat us Colyte w Orally as as directed Jul, day(s) Active Flavor Packs directed 2015 240 GM PROCEDURES No Known procedures RESULTS No Results REASON FOR VISIT abdominal pain, family hx of colon CA,persona; hx of polyps,screening, Colyte prep, follow up, wouldlike patient to be seen sooner then september, COLON Insurance Providers [facility] Member Patient Patient Patient Patient Patient Subscriber Subscriber Subscriber Group Insurance Plan Plan Plan Plan ID Relationship Address Phone Name Date of ID Name Date of No Type Insurance Insurance Insurance Coverage to Subscriber Address Phone Name Dates Shantell [phone] [employer] self JOSSELINE [id number] [place] [id number] [place] [address] Plan [id number]
[2022-06-16 04:29] LABS: COVID-19 Test Positive (Negative); IDNOW Serial# BCCEAD1C
[2022-06-16 04:42] LABS: Anion Gap 14 (12-20); Blood Urea Nitrogen 11 mg/dL (9-16); Calcium 9.5 mg/dL (8.4-10.2); Carbon Dioxide 21 mmol/L (22-29); Chloride 108 mmol/L (96-108); Creatinine Clr Calc Pharmacy 79.6; Estimated Glomerular Filt Rate > 60; Glucose Random 136 mg/dL (60-115); Potassium 3.7 mmol/L (3.3-5.1); Sodium 139 mmol/L (135-145); Troponin-I High Sensitivity < 3.5 ng/L (<3.5-17.0)
[2022-06-16] MEDS: 0.9 % Sodium Chloride 1,000 ML 999 ML IV (04:49)
[2022-06-16] MEDS: Ketorolac Tromethamine 30 MG/ML VIAL IVPUSH (04:49)
[2022-06-16] MEDS: ondansetron HCL 4 MG/2 ML VIAL IVPUSH (04:50)
[2022-06-16 06:00] VITALS: BP 122/76; PULSE 87; RESP 20; TEMP 36.7; O2SAT 97
== END 2022-06-16 06:17 | disposition home or self-care (01) ==
PROVIDERS: Emergency Provider Internal Medicine; PCP Internal Medicine
DX: U07.1 COVID-19 (principal); M79.10 Myalgia, unspecified site; R51.9 Headache, unspecified; R07.89 Other chest pain; Z79.899 Other long term (current) drug therapy
CPT/HCPCS: 71045; 80048; 84484; 85027; 87635; 93005; 96361; 96374; 96375; 99284; J1885; J2405

== ENCOUNTER 2022-07-17 14:21 | Outpatient (REF) | payer OTHER, SELFPAY ==
--- NOTE | ~2022-07-17 | US_ITS ---
EXAMINATION: US PELVIS CLINICAL INFORMATION: Pelvic and perineal pain. COMPARISON: 03/07/2021 TECHNIQUE: Ultrasound of the pelvis is performed using both transabdominal and transvaginal transducers along with Doppler. Transvaginal imaging is performed due to inadequate visualization transabdominally. FINDINGS: Uterus: The uterus is anteverted and measures 5.3 x 2.9 x 4.2 cm. Previous fibroid not seen. Small nabothian cysts noted. The double wall endometrial thickness is 3 mm. The uterus is smooth in contour and has normal myometrial echogenicity. No visible fibroid. Adnexa: Both ovaries are visualized. There is normal color flow to the adnexa. There is no ovarian torsion. There is no pelvic ascites or fluid collection. Right ovary measures 2 x 1.2 x 1.5 cm. Left ovary measures 3.5 x 1.4 x 1 cm. 2.4 cm simple appearing cyst which is almost certainly benign. US/US pelvic and transvaginal IMPRESSION: No suspicious findings. Simple appearing left ovarian cyst which is almost certainly benign. No follow-up imaging recommended.
== END 2022-07-17 14:22 | disposition home or self-care (01) ==
LOC: HO.US 14:21
PROVIDERS: Visit Provider Obstetrics & Gynecology
DX: R10.2 Pelvic and perineal pain (principal)
CPT/HCPCS: 76830; 76856

== ENCOUNTER 2022-08-02 14:14 | Outpatient (REF) | payer OTHER, SELFPAY ==
[2022-08-03 12:04] LABS: CA-125 4 U/mL (<35)
== END 2022-08-02 14:15 | disposition home or self-care (01) ==
LOC: HO.LAB 14:14
PROVIDERS: PCP Internal Medicine; Visit Provider Obstetrics & Gynecology
DX: N83.209 Unspecified ovarian cyst, unspecified side (principal)
CPT/HCPCS: 36415; 86304; 99212

== ENCOUNTER 2022-10-31 12:45 | Outpatient (REF) | payer OTHER, SELFPAY ==
--- NOTE | ~2022-10-31 | US_ITS ---
EXAMINATION: US PELVIS CLINICAL INFORMATION: Unspecified ovarian cyst. COMPARISON: Ultrasound pelvis 07/17/2022. TECHNIQUE: Ultrasound of the pelvis is performed using both transabdominal and transvaginal transducers along with Doppler. Transvaginal imaging is performed due to inadequate visualization transabdominally. FINDINGS: Uterus: The uterus is anteverted, anteflexed and measures 6.3 x 2.9 x 5.1 The double wall endometrial thickness is 0.3 cm. The uterus is smooth in contour and has normal myometrial echogenicity. There is a small hypoechoic lesion in the posterior body of uterus measuring 0.8 x 0.7 x 0.9 cm. Previously it measured 0.8 0.6 x 0.8 cm. Adnexa: Both ovaries are visualized. There is normal color flow to the adnexa. There is no ovarian torsion. There is no pelvic ascites or fluid collection. Right ovary measures 2.6 x 1.4 x 2.2 cm and volume 4.2 mL. It appears unremarkable. Previously right ovary measured 2.0 x 1.2 x 1.5 cm and volume 1.9 mL. Left ovary measures 2.5 x 2.3 x 2 0.1 mL and volume 13.1 mL. There is an anechoic simple cyst measuring 2.1 x 2.3 x 2.4 cm. Previously it measured 2.1 x 2.4 x 2.2 cm. US/US pelvic and transvaginal IMPRESSION: Simple left ovarian cyst. Right ovary is unremarkable. Small uterine fibroid is stable.
== END 2022-10-31 12:46 | disposition home or self-care (01) ==
LOC: HO.US 12:45
PROVIDERS: PCP Internal Medicine; Visit Provider Obstetrics & Gynecology
DX: N83.209 Unspecified ovarian cyst, unspecified side (principal)
CPT/HCPCS: 76830; 76856

== ENCOUNTER 2022-11-14 13:02 | Outpatient (REF) | payer OTHER, SELFPAY ==
[2022-11-16 09:03] LABS: CA-125 6 U/mL (<35)
== END 2022-11-14 13:03 | disposition home or self-care (01) ==
LOC: HO.LAB 13:02
PROVIDERS: PCP Internal Medicine; Visit Provider Obstetrics & Gynecology
DX: N83.209 Unspecified ovarian cyst, unspecified side (principal)
CPT/HCPCS: 36415; 86304; 99212

== ENCOUNTER 2022-11-22 13:55 | Outpatient (REF) | payer OTHER, SELFPAY ==
--- NOTE | ~2022-11-22 | MM_ITS ---
EXAMINATION: MM SCREENING DIGITAL BREAST TOMOSYNTHESIS, BILATERAL CLINICAL INFORMATION: Screening. Asymptomatic. The lifetime risk of breast cancer based on the Tyrer-Cuzick Model is 5.1%. COMPARISON: Mammography: September 29, 2020 and studies dating back to February 25, 2014 TECHNIQUE: Digital breast tomosynthesis is performed in both the craniocaudal and mediolateral oblique views along with computer-aided detection (CAD). Synthesized 2D images are generated from the tomosynthesis. FINDINGS: There are scattered areas of fibroglandular density (ACR BI-RADS breast composition Category b). There are no significant masses, abnormal calcifications, or other abnormalities. MM/MM tomosynthesis screening BI IMPRESSION: No significant changes ASSESSMENT: BI-RADS 1: Negative RECOMMENDATION: Routine annual mammography screening. This patient's information was entered into a reminder system with a target due date for their next mammogram.
== END 2022-11-22 13:56 | disposition home or self-care (01) ==
LOC: HO.MAMMO 13:55
PROVIDERS: PCP Internal Medicine; Visit Provider Internal Medicine
DX: Z12.31 Encounter for screening mammogram for malignant neoplasm of breast (principal)
CPT/HCPCS: 77063; 77067

== ENCOUNTER 2022-11-30 07:49 | Outpatient (RCR) | payer OTHER, SELFPAY ==
--- NOTE | 2022-11-30 11:35 | MHC.PT.DC ---
[facility] [place] [facility] [place] [facility] [place] [facility] [address] [place] Taveras [address] [phone] F: [phone] F: [phone] F: [phone] F: [phone] Physical Therapy Discharge Report Diagnosis: VERTIGO Date of Surgery: Date of Evaluation: 11/30/22 Date of Discharge: 11/30/22 Treatments to Date: 1 Cancellations to Date: 0 No Shows to Date: 0 Discharge Status: Recommend MD Follow-up Discharge Summary: JOSSELINE IS A PLEASANT 57 YO FEMALE. UPON EXAM SHE DOES NOT EXHIBIT S/S OF BPPV, NO OCCULOMOTOR DEFICITS, BALANCE IS WNLS. AT THIS TIME SHE DOES NOT EXHIBIT VESTIBUAR IMPAIRMENTS WHICH WOULD WARRENT SKILLED PHYSICAL THERAPY. DURING SESSION TODAY SHE DOES SPEAK AT LENGTH REGARDING SIGNIFICANT EXTERNAL STRESSORS IN HER LIFE LEADING TO INCREASED ANXIETY, OVERWHELM AND FATIGUE. SHE MAY BENEFIT FROM MENTAL HEALTH COUSELING TO ASSIST HER IN WORKING WITH THESE ISSUES. IN SPEAKING WITH HER, SHE IS AGREEABLE TO PURSUING THIS AND FEELS HER STRESS IS A LARGE PART OF HER PROBLEM. SHE REPORTS SHE WOULD LIKE TO REACH OUT TO MD FOR ASSISTANCE WITH THIS WELL A POSSIBLE PT REFERRAL FOR NECK PAIN. WE WOULD BE HAPPY TO ANSWER ANY QUESTIONS YOU MAY HAVE REGARDING THIS PLEASANT PATIENT. Electronically signed by: JUSTA BURNHAM PT DPT Please sign and return to therapist. Thank you for your referral.
== END 2022-12-27 10:10 | disposition home or self-care (01) ==
LOC: HO.PT 07:49
PROVIDERS: PCP Internal Medicine; Visit Provider Internal Medicine
DX: R42 Dizziness and giddiness (principal)
CPT/HCPCS: 97161

== ENCOUNTER 2023-02-20 14:46 | Outpatient (AMB) | payer OTHER, SELFPAY ==
--- NOTE | 2023-02-20 14:46 | A.OFFPC_ITS ---
Vital Signs 02/20/23 14:48 Height 5 ft 3 in Weight 138 lb 8 oz BMI 24.5 BP 120/60 Blood Pressure Location Lt brachial Position Sitting Pulse 75 Pulse Source Pulse Oximeter Pulse Oximetry (%) 94 Oxygen Delivery Method Room Air Intake Visit Reasons: Abdominal Pain/Pain Under Ribs Intake Note: Patient is here today for abdominal pain, and pain under ribs, radiating to back. 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 per policy Accompanied by: Self / Same As Patient Allergies IV MED FOR VOMITING Allergy (Unknown, Uncoded 02/20/23 14:48) unknown Medication List - Last Reconciled 02/21/23 by Jose Alberto Dumas MD dicyclomine 20 mg PO QID famotidine (Pepcid) 20 mg PO DAILY PRN triamcinolone acetonide 0.5% 1 appl topical TID triamcinolone acetonide 0.5% 1 appl topical BID Tobacco use date assessed: 02/20/23 Dental Screening Dental Screen Date: 02/20/23 Did you have a dental visit in the last 12 months?: Yes Did you have a dental problem in the last 6 months where you did not have access to dental care?: No Was dental information given to patient?: Patient has dentist HPI Abdominal Pain/Pain Under Ribs HPI Details luq abd pain for a week PFSH Medical History (Updated 02/21/23 @ 09:34 by Jose Alberto Dumas MD) Abdominal pain Abscess of buttock JESSE III (cervical intraepithelial neoplasia grade III) with severe dysplasia Colon polyps Constipation GERD (gastroesophageal reflux disease) HPV (human papilloma virus) anogenital infection Nausea Vertigo Surgical History H/O LEEP History of appendectomy History of cholecystectomy History of surgery History of tubal ligation Hx of colonoscopy Family History Mother Colon cancer Maternal Grandfather No problems noted. 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 Depression Screening Interpretation: Positive Source: Developed by Drs. Mateo Menendez, Marie Engle, Leonardo Christiansen and colleagues, with an educational tatum from [employer]. Thrive Questionnaire Date Thrive assessed: 10/17/22 Currently or been in a relationship where the following occur: no concerns reported ANNAMARIA-7 AMB Questionnaire ANNAMARIA-7 Date ANNAMARIA - 7 assessed: 10/17/22 Source: Developed by Drs. Mateo Menendez, Marie Engle, Leonardo Christiansen and colleagues, with an educational tatum from [employer]. Review of Systems Const Denies chills, Denies headache(s) and Denies weight loss ENT Denies headache(s) Card Denies chest pain, Denies syncope, Denies irregular heart rhythm and Denies dyspnea Resp Denies chest congestion, Denies cough and Denies dyspnea GI Denies change in stool character and Denies vomiting Musc Denies deformity and Denies joint swelling Neuro Denies syncope and Denies headache(s) Physical exam (Primary Care) Vital Signs: Last Vital Signs Pulse 75 02/20/23 14:48 BP 120/60 02/20/23 14:48 Pulse Ox 94 02/20/23 14:48 Oxygen Delivery Method Room Air 02/20/23 14:48 BMI result Body Mass Index 24.5 Tobacco/Smoking Status: Tobacco use Status Tobacco use date assessed 02/20/23 02/20/23 14:53 Patient Tobacco Use Status Never used Tobacco 02/20/23 14:53 e-Cigarette/Vaping Use Never Used 02/20/23 14:53 Depression Screening Interpretation: Positive Thrive Assessment: Date of Thrive Assessment Date Thrive assessed 10/17/22 02/20/23 14:53 Currently or been in a relationship where the following occur: no concerns reported Const General: cooperative, healthy appearing and no acute distress Orientation/consciousness: oriented to person, oriented to place and oriented to time HENMT Head: Yes normal to inspection, Yes normocephalic and Yes atraumatic Mouth: Normal oral and palatal mucosa present and tongue normal Throat: Yes posterior oropharynx normal and Yes uvula midline Eyes General: appearance normal, both eyes and all related structures Neck Neck: Yes normal visual inspection, Yes full ROM and Yes no lymphadenopathy Thyroid: Thyroid normal Carotids: normal carotid upstroke Chest Chest palpation & inspection: normal inspection of the chest Resp Effort & Inspection: normal respiratory effort and able to speak in complete sentences Auscultation: clear to auscultation bilaterally Cardio Jugular venous distension: no JVD Palpation: normal PMI Rate: regular rate Rhythm: regular rhythm Heart sounds: S1 normal heart sound present and S2 normal heart sound present GI Inspection: Yes normal to inspection Palpation (GI): Soft to palpation and No hepatosplenomegaly present Auscultation: normal bowel sounds General: Yes no CVA tenderness Back/Spine/Pelvis Back: no CVA tenderness Skin General skin exam: no rashes or lesions noted Neuro General: oriented to person, oriented to place and oriented to time Extrem General: Yes normal to inspection and Yes full ROM Assessment and Plan Assessment & Plan (1) Abdominal pain: Code(s): R10.9 - Unspecified abdominal pain Plan: labs and us Orders: Orders Basic Metabolic Panel 02/20/23 R10.9 - Unspecified abdominal pain Complete Blood Count Auto Diff 02/20/23 D64.9 - Anemia, unspecified US abdomen complete 02/20/23 R10.9 - Unspecified abdominal pain Medications: New dicyclomine 20 mg PO QID 30 tabs 3RF Coding Level of Care Code Est Pt Level 3 (19831) Diagnoses Abdominal pain R10.9
[2023-02-20 14:48] VITALS: BP 120/60; PULSE 75; O2SAT 94; BMI 24.5
== END 2023-02-20 14:59 | disposition home or self-care (01) ==
PROVIDERS: PCP Internal Medicine; Visit Provider Internal Medicine
DX: R10.9 Unspecified abdominal pain (principal)
CPT/HCPCS: 99213

== ENCOUNTER 2023-02-20 15:15 | Outpatient (REF) | payer OTHER, SELFPAY ==
[2023-02-20 15:23] LABS: MANUAL DIFF FLAG NO
[2023-02-20 15:42] LABS: Basophils Percent Auto 0.4 % (0-2); Eosinophils Absolute Auto 0.1 X10*3/uL (0.0-0.4); Eosinophils Percent Auto 1.5 % (0-4); Hematocrit 40.7 % (37.0-47.0); Hemoglobin 13.2 g/dl (12.0-16.0); Imm Gran Abs Auto 0.02 X10*3/uL (0.00-0.03); Imm Gran Pct Auto 0.2 % (0.0-0.4); Lymphocytes Absolute Auto 4.2 X10*3/uL (1.2-4.9); Lymphocytes Percent Auto 44.1 % (20-40); Mean Corpuscular HGB Conc 32.4 g/dl (31.0-35.0); Mean Corpuscular Hemoglobin 30.6 pg (27.0-33.0); Mean Corpuscular Volume 94.2 fL (80.0-98.0); Mean Platelet Volume 9.6 fL (9.4-12.3); Monocytes Absolute Auto 0.8 X10*3/uL (0.1-1.2); Monocytes Percent Auto 8.9 % (2-11); Neutrophils Absolute Auto 4.2 x10*3/uL (2.0-8.3); Neutrophils Percent Auto 44.9 % (45-73); Platelet Count 278 X10*3/uL (160-400); Red Blood Count 4.32 X10*6/uL (4.20-5.50); Red Cell Distribution Width 12.1 % (11.0-16.0); White Blood Count 9.4 X10*3/uL (4.8-10.8)
[2023-02-20 21:12] LABS: Anion Gap 14 (12-20); Blood Urea Nitrogen 14 mg/dL (9-16); Calcium 9.7 mg/dL (8.4-10.2); Carbon Dioxide 26 mmol/L (22-29); Chloride 107 mmol/L (96-108); Estimated Glomerular Filt Rate > 60; Glucose Random 76 mg/dL (60-115); Sodium 143 mmol/L (135-145)
== END 2023-02-20 15:16 | disposition home or self-care (01) ==
LOC: HO.LAB 15:15
PROVIDERS: PCP Internal Medicine; Visit Provider Internal Medicine
DX: R10.9 Unspecified abdominal pain (principal); D64.9 Anemia, unspecified
CPT/HCPCS: 36415; 80048; 85025

== ENCOUNTER 2023-02-26 10:30 | Outpatient (REF) | payer OTHER, SELFPAY ==
--- NOTE | ~2023-02-26 | US_ITS ---
EXAMINATION: US ABDOMEN COMPLETE CLINICAL INFORMATION: Unspecified abdominal pain. COMPARISON: CT abdomen and pelvis without contrast 09/17/2020. TECHNIQUE: Real-time imaging of the abdominal viscera. FINDINGS: PANCREAS: Normal. ABDOMINAL AORTA: The proximal, mid, and distal segments are normal in caliber. INFERIOR VENA CAVA: Visualized portions are normal. LIVER: Normal. The liver is normal in size. The liver contour is normal. Parenchymal echogenicity is normal. No focal hepatic lesion. There is no intrahepatic biliary duct dilatation seen. GALLBLADDER: Surgically absent. COMMON BILE DUCT: Normal in caliber measuring 0.4 cm in diameter. RIGHT KIDNEY: At the interpolar aspect, a 2 mm nonobstructing calculus is seen, with twinkle artifact. No hydronephrosis or renal calculi. The kidney measures 10.5 cm in maximum dimension. LEFT KIDNEY: Normal. No hydronephrosis. No renal calculi or focal parenchymal lesions. The kidney measures 10.3 cm in maximum dimension. SPLEEN: Normal. The spleen measures 9.5 cm in maximum dimension. FREE FLUID: None. US/US abdomen complete IMPRESSION: 1. A 2 mm nonobstructing right renal calculus is seen. No left renal calculus is seen. No hydronephrosis is noted bilaterally. 2. Technically limited ultrasound examination of the pancreas.
== END 2023-02-26 10:31 | disposition home or self-care (01) ==
LOC: HO.HMGCX 10:30
PROVIDERS: PCP Internal Medicine; Visit Provider Internal Medicine
DX: R10.9 Unspecified abdominal pain (principal)
CPT/HCPCS: 76700

== ENCOUNTER 2023-03-29 10:47 | Outpatient (REF) | payer OTHER, SELFPAY ==
--- NOTE | ~2023-03-29 | US_ITS ---
EXAMINATION: US PELVIS CLINICAL INFORMATION: Question ovarian cyst; postmenopausal patient. COMPARISON: Pelvic ultrasound dated 10/31/2022. TECHNIQUE: Ultrasound of the pelvis is performed using both transabdominal and transvaginal transducers along with Doppler. Transvaginal imaging is performed due to inadequate visualization transabdominally. FINDINGS: Uterus: The uterus is anteverted and anteflexed. The uterus measures 6.7 x 2.4 x 4.3 cm. Nabothian cysts are seen within the cervix. The double wall endometrial thickness is 3 mm. The uterus is smooth in contour and has normal myometrial echogenicity. No visible fibroid. Adnexa: Both ovaries are visualized. There is normal color flow to the adnexa. There is no ovarian torsion. There is no pelvic ascites or fluid collection. Right ovary measures 3.0 x 1.2 x 1.4 cm, volume 2.6 mL. Left ovary measures 2.6 x 0.9 x 1.8 cm, volume 2.2 mL. The left ovary contains a 2.1 x 2.5 x 2.0 cm exophytic simple cyst. This is benign and requires no imaging follow-up. US/US pelvic and transvaginal IMPRESSION: 1. A small uterine fibroid is seen. 2. Nabothian cysts are seen within the cervix.
== END 2023-03-29 10:48 | disposition home or self-care (01) ==
LOC: HO.US 10:47
PROVIDERS: PCP Internal Medicine; Visit Provider Obstetrics & Gynecology
DX: N83.209 Unspecified ovarian cyst, unspecified side (principal)
CPT/HCPCS: 76830; 76856

== ENCOUNTER 2023-04-09 13:28 | Outpatient (AMB) | payer OTHER, SELFPAY ==
[2023-04-09 13:35] VITALS: BP 118/68; PULSE 73; O2SAT 98; BMI 24.6
--- NOTE | 2023-04-09 13:35 | A.OFFPC_ITS ---
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: Not Required per policy Accompanied by: Self / Same As Patient Allergies IV MED FOR VOMITING Allergy (Unknown, Uncoded 04/09/23 13:36) unknown Medication List - Last Reconciled 04/09/23 by Jose Alberto Dumas MD dicyclomine 20 mg PO QID famotidine (Pepcid) 20 mg PO DAILY PRN triamcinolone acetonide 0.5% 1 appl topical TID triamcinolone acetonide 0.5% 1 appl topical BID Tobacco use date assessed: 02/20/23 Dental Screening Dental Screen Date: 04/09/23 Did you have a dental visit in the last 12 months?: No Did you have a dental problem in the last 6 months where you did not have access to dental care?: No Was dental information given to patient?: Patient has dentist HPI Annual Exam HPI Details GERD on Rx; doing well [facility] Medical History JESSE III (cervical intraepithelial neoplasia grade III) with severe dysplasia Abscess of buttock Abdominal pain GERD (gastroesophageal reflux disease) Constipation Nausea Vertigo HPV (human papilloma virus) anogenital infection Colon polyps Surgical History Hx of colonoscopy History of tubal ligation H/O LEEP History of surgery History of cholecystectomy History of appendectomy Family History Mother Colon cancer Maternal Grandfather No problems noted. 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 1. Little interest or pleasure in doing things: not at all 2. Feeling down, depressed, or hopeless: not at all 3. Trouble falling or staying asleep, or sleeping too much: not at all 4. Feeling tired or having little energy: not at all 5. Poor appetite or overeating: not at all 6. Feeling bad about yourself - or that you are a failure or have let yourself or your family down: not at all 7. Trouble concentrating on things, such as reading the newspaper or watching television: not at all 8. Moving or speaking so slowly that other people could have noticed. Or the opposite - being so fidgety or restless that you have been moving around a lot more than usual: not at all 9. Thoughts that you would be better off or of hurting yourself in some way: not at all Total score: 0 Depression Screening Interpretation: Positive 68408 - PHQ-9 Billing: Yes Source: Developed by Drs. Mateo Menendez, Marie Engle, Leonardo Christiansen and colleagues, with an educational tatum from [employer]. Thrive Questionnaire Date Thrive assessed: 10/17/22 AUDIT C Alcohol Use Questionnaire (AUDIT-C) 1. How often do you have a drink containing alcohol?: Never Total Score: 0 Score Reviewed/Action Taken: Yes ANNAMARIA-7 AMB Questionnaire ANNAMARIA-7 Date ANNAMARIA - 7 assessed: 10/17/22 Source: Developed by Drs. Mateo Menendez, Leonardo Salinas and colleagues, with an educational tatum from [employer]. Review of Systems Const Denies chills, Denies fatigue, Denies headache(s) and Denies weight loss Eyes Denies change in vision, Denies diplopia and Denies eye pain ENT Denies vertigo, Denies dizziness, Denies headache(s) and Denies nasal discharge Card Denies chest pain, Denies rapid heart rate and Denies dyspnea on exertion Resp Denies chest congestion, Denies cough, Denies pain with cough and Denies dyspnea on exertion GI Denies abdominal pain, Denies hematochezia and Denies change in bowel habits Musc Denies myalgias, Denies arthralgias and Denies joint swelling Skin/Breast Denies lesions and Denies unusual bruising Neuro Denies vertigo, Denies dizziness, Denies headache(s) and Denies focal weakness Endo Denies fatigue Physical exam (Primary Care) Vital Signs: Last Vital Signs Pulse 73 04/09/23 13:35 BP 118/68 04/09/23 13:35 Pulse Ox 98 04/09/23 13:35 Oxygen Delivery Method Room Air 04/09/23 13:35 BMI result Body Mass Index 24.6 Tobacco/Smoking Status: Tobacco use Status Tobacco use date assessed 02/20/23 04/09/23 13:40 Patient Tobacco Use Status Never used Tobacco 04/09/23 13:40 e-Cigarette/Vaping Use Never Used 04/09/23 13:40 PHQ-9: PHQ-9 Score PHQ-9: Total score 0 04/09/23 13:40 Depression Screening Interpretation: Positive Thrive Assessment: Date of Thrive Assessment Date Thrive assessed 10/17/22 04/09/23 13:40 Const General: cooperative, healthy appearing and no acute distress Orientation/consciousness: oriented to person, oriented to place and oriented to time HENKY Head: Yes normal to inspection, Yes normocephalic and Yes atraumatic Mouth: Normal oral and palatal mucosa present and tongue normal Throat: Yes posterior oropharynx normal and Yes uvula midline Eyes General: appearance normal, both eyes and all related structures Neck Neck: Yes normal visual inspection, Yes full ROM and Yes no lymphadenopathy Thyroid: Thyroid normal Carotids: normal carotid upstroke Chest Chest palpation & inspection: normal inspection of the chest Resp Effort & Inspection: normal respiratory effort and able to speak in complete sentences Auscultation: clear to auscultation bilaterally Cardio Jugular venous distension: no JVD Palpation: normal PMI Rate: regular rate Rhythm: regular rhythm Heart sounds: S1 normal heart sound present and S2 normal heart sound present GI Inspection: Yes normal to inspection Palpation (GI): Soft to palpation and No hepatosplenomegaly present Auscultation: normal bowel sounds General: Yes no CVA tenderness Back/Spine/Pelvis Back: no CVA tenderness Skin General skin exam: no rashes or lesions noted Neuro General: oriented to person, oriented to place and oriented to time Extrem General: Yes normal to inspection and Yes full ROM Assessment and Plan Assessment & Plan (1) Physical exam: Code(s): Z00.00 - Encounter for general adult medical examination without abnormal findings Plan: stable; do labs (2) Chronic GERD: Code(s): K21.9 - Gastro-esophageal reflux disease without esophagitis Plan: stable; rx Orders: Orders Complete Blood Count Auto Diff Today D64.9 - Anemia, unspecified Thyroid Stimulating Hormone Today E03.9 - Hypothyroidism, unspecified Comprehensive [place]. Panel Fast Today N28.9 - Disorder of kidney and ureter, unspecified Lipid Panel Today E78.5 - Hyperlipidemia, unspecified Coding Level of Care Code Est Pt Prev Care 40-64y(64599) Diagnoses Physical exam Z00.00 Chronic GERD K21.9
== END 2023-04-09 15:16 | disposition home or self-care (01) ==
PROVIDERS: PCP Internal Medicine; Visit Provider Internal Medicine
DX: Z00.00 Encounter for general adult medical examination without abnormal findings (principal); K21.9 Gastro-esophageal reflux disease without esophagitis
CPT/HCPCS: 99396

== ENCOUNTER 2023-04-10 11:04 | Outpatient (REF) | payer OTHER, SELFPAY ==
[2023-04-10 11:20] LABS: MANUAL DIFF FLAG NO
[2023-04-10 11:58] LABS: Basophils Percent Auto 0.4 % (0-2); Eosinophils Absolute Auto 0.1 X10*3/uL (0.0-0.4); Hematocrit 39.9 % (37.0-47.0); Hemoglobin 13.2 g/dl (12.0-16.0); Imm Gran Abs Auto 0.02 X10*3/uL (0.00-0.03); Imm Gran Pct Auto 0.2 % (0.0-0.4); Lymphocytes Absolute Auto 3.3 X10*3/uL (1.2-4.9); Lymphocytes Percent Auto 40.7 % (20-40); Mean Corpuscular HGB Conc 33.1 g/dl (31.0-35.0); Mean Corpuscular Hemoglobin 30.8 pg (27.0-33.0); Mean Platelet Volume 9.9 fL (9.4-12.3); Monocytes Absolute Auto 0.7 X10*3/uL (0.1-1.2); Monocytes Percent Auto 8.1 % (2-11); Neutrophils Absolute Auto 4.1 x10*3/uL (2.0-8.3); Neutrophils Percent Auto 49.6 % (45-73); Platelet Count 280 X10*3/uL (160-400); Red Blood Count 4.29 X10*6/uL (4.20-5.50); Red Cell Distribution Width 12.1 % (11.0-16.0); White Blood Count 8.2 X10*3/uL (4.8-10.8)
[2023-04-10 12:59] LABS: Alanine Aminotransferase 18 U/L (0-31); Albumin Level 4.4 g/dL (3.5-5.0); Alkaline Phosphatase 89 U/L (39-117); Anion Gap 11 (12-20); Aspartate Amino Transferase 21 U/L (5-31); Bilirubin Total 0.5 mg/dL (0.0-1.0); Blood Urea Nitrogen 14 mg/dL (9-16); Calcium 9.8 mg/dL (8.4-10.2); Carbon Dioxide 26 mmol/L (22-29); Chloride 109 mmol/L (96-108); Cholesterol 214 mg/dL (<200); Estimated Glomerular Filt Rate > 60; Glucose Fasting 91 mg/dL (60-99); HDL Cholesterol 50 mg/dL (>40); LDL Cholesterol Calculated 143 mg/dL (<100); Sodium 142 mmol/L (135-145); Total Protein 7.3 g/dL (6.5-8.0); Triglycerides 109 mg/dL (<150)
[2023-04-10 13:07] LABS: Thyroid Stimulating Hormone 1.15 uIU/mL (0.32-4.0)
== END 2023-04-10 11:05 | disposition home or self-care (01) ==
LOC: HO.LAB 11:04
PROVIDERS: PCP Internal Medicine; Visit Provider Internal Medicine
DX: E03.9 Hypothyroidism, unspecified (principal); N28.9 Disorder of kidney and ureter, unspecified; D64.9 Anemia, unspecified; E78.5 Hyperlipidemia, unspecified
CPT/HCPCS: 36415; 80053; 80061; 84443; 85025

== ENCOUNTER 2023-04-17 13:58 | Outpatient (REF) | payer OTHER, SELFPAY ==
[2023-04-20 02:59] LABS: HPV mRNA E6/E7 rflx Not Detected (Not Detected)
== END 2023-04-17 13:59 | disposition home or self-care (01) ==
LOC: HO.LNP 13:58
PROVIDERS: PCP Internal Medicine; Visit Provider Obstetrics & Gynecology
DX: Z01.419 Encounter for gynecological examination (general) (routine) without abnormal findings (principal); N87.0 Mild cervical dysplasia; N83.209 Unspecified ovarian cyst, unspecified side
CPT/HCPCS: 87624; 88142; 99396

== ENCOUNTER 2023-04-17 13:58 | Outpatient (AMB) | payer OTHER, SELFPAY ==
--- NOTE | 2023-04-17 14:08 | A.OFFVIS_ITS ---
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 No complaints. Last Pap/HPV was in 01/18 was negative, the patient had JESSE 3 status post LEEP in 08/19 followed by colpo biopsy in 04/19 showing JESSE 1 Last Mammogram was BI-RADS 1 in 11/19 Last Colonoscopy was in 10/17, the recommendation according to patient was repeat in 3 years Pelvic Ultrasound done in 03/21 as a follow-up of simple ovarian cyst seen on previous ultrasound done in 11/16 showed the following: Uterus: The uterus is anteverted and anteflexed. The uterus measures 6.7 x 2.4 x 4.3 cm. Nabothian cysts are seen within the cervix. The double wall endometrial thickness is 3 mm. The uterus is smooth in contour and has normal myometrial echogenicity. No visible fibroid. Adnexa: Both ovaries are visualized. There is normal color flow to the adnexa. There is no ovarian torsion. There is no pelvic ascites or fluid collection. Right ovary measures 3.0 x 1.2 x 1.4 cm, volume 2.6 mL. Left ovary measures 2.6 x 0.9 x 1.8 cm, volume 2.2 mL. The left ovary contains a 2.1 x 2.5 x 2.0 cm exophytic simple cyst. This is benign and requires no imaging follow-up. CA 125 in 11/19 was within normal PFSH Medical History JESSE III (cervical intraepithelial neoplasia grade III) with severe dysplasia Abscess of buttock Abdominal pain GERD (gastroesophageal reflux disease) Constipation Nausea Vertigo HPV (human papilloma virus) anogenital infection Colon polyps Surgical History Hx of colonoscopy History of tubal ligation H/O LEEP History of surgery History of cholecystectomy History of appendectomy Family History Mother Colon cancer Maternal Grandfather No problems noted. 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 Sexual orientation: Straight/Heterosexual Gender identity: Female Cognitive needs: No Hearing needs: No Vision needs: Yes Female Reproductive History Menstrual Age of Menarche: 14 Menopause type: natural Total pregnancies: 5 Number of Living Children: 3 Ab spontaneous: 2 Date of last pap smear: 04/14/22 Date of Mammogram: 11/22/22 Review of Systems Const All systems reviewed & are unremarkable except as noted in HPI and below Card Reports as per HPI Resp Reports as per HPI GI Reports as per HPI and Reports no additional complaints Reports as per HPI Physical Exam Vital Signs: Last Vital Signs BP 120/70 04/17/23 14:13 BMI result Body Mass Index 24.8 Const General: cooperative, healthy appearing and comfortable Chest Chest palpation & inspection: normal inspection of the chest and normal palpation of entire chest wall Breast/axilla inspection: normal inspection of the breasts and normal inspection of the axillae Breast/axilla palpation: normal palpation of the breasts, normal palpation of the axillae and no axillary lymphadenopathy Resp Effort & Inspection: normal respiratory effort Auscultation: clear to auscultation bilaterally Percussion: percussion normal Cardio Palpation: normal PMI Rate: regular rate Rhythm: regular rhythm Heart sounds: no murmurs and no rubs Peripheral pulses: Peripheral pulses 2+ throughout GI Inspection: Yes normal to inspection Palpation (GI): Soft to palpation, nontender, no guarding, not rigid and No hepatosplenomegaly present Percussion: Yes normal to percussion Auscultation: normal bowel sounds Rectal Exam - Female: deferred General: Yes bladder normal to palpation External Female Exam: No lesion Speculum Exam - Vagina: normal appearance of the vagina, normal palpation, normal vaginal discharge and not erythematous Speculum Exam - Cervix: normal appearance of the cervix and normal palpation Bimanual exam- vagina & uterus: normal bimanual exam, normal palpation, uterine size normal, bladder normal to palpation, consistency normal and normal palpation Bimanual Exam- Adnexa, other: normal adnexae, no masses and no tenderness Assessment & Plan Assessment & Plan (1) Well woman exam: Comment: History of JESSE 3 status post LEEP in 08/19 followed by colpo biopsy in 04/19 JESSE 1 Code(s): Z01.419 - Encounter for gynecological examination (general) (routine) without abnormal findings Plan: Co testing done. Counseled the patient about the recommended dietary allowance of 1200 mg of Calcium & 600 IU of vitamin D. Instruction given to patient to schedule her next screening Mammogram in 11/20 . The patient was instructed to perform monthly self-breast exams and schedule annual exam in a year; all questions answered and the patient verbalized understanding. (2) Ovarian cyst: Comment: Post menopause Code(s): N83.209 - Unspecified ovarian cyst, unspecified side Plan: Discussed with the patient the ovarian cyst by ultrasound, simple stable in size compared to ultrasound done 3 months ago. Discussed with the patient the Ultrasound findings, the main limitation of transvaginal ultrasonography alone as a diagnostic tool to distinguish benign from malignant masses relates to its lack of specificity and low positive predictive value for cancer. The differential diagnosis discussed with the patient includes the following but not limited to: benign and malignant gynecological and non-gynecological causes. Discussed with the patient options of treatment including laparoscopy ovarian salpingo-oophorectomy vs. expectant management with repeat US in repeating pelvic US in 12 months from previous US. If the ovarian cyst is larger and / or changes in Ultrasound appearance & became complex looking will refer to gynecologic Oncology. All pros, cons, risks and benefits of each approach were discussed with the patient including but not limited to a delay in the diagnosis and treatment of ovarian cancer affecting the prognosis; The patient decided to go ahead with expectant management. Instructions given to patient to go ahead and schedule a 12 months ultrasound follow-up appointment. All questions were answered & the patient verbalized understanding and agreed with the plan Orders: Orders Pap Smear Today N87.0 - Mild cervical dysplasia Coding Level of Care Code Est Pt Level 3 (98713) Diagnoses Well woman exam Z01.419 Ovarian cyst N83.209
[2023-04-17 14:13] VITALS: BP 120/70; BMI 24.8
== END 2023-04-17 15:08 | disposition home or self-care (01) ==
LOC: HO.HWS 13:58
PROVIDERS: PCP Internal Medicine; Visit Provider Obstetrics & Gynecology
DX: Z01.419 Encounter for gynecological examination (general) (routine) without abnormal findings (principal); N83.202 Unspecified ovarian cyst, left side
CPT/HCPCS: 99396

== ENCOUNTER 2023-07-27 08:58 | Outpatient (AMB) | payer OTHER, SELFPAY ==
[2023-07-27 09:54] VITALS: BP 128/74; PULSE 83; TEMP 37.1; O2SAT 98; BMI 23.9
--- NOTE | 2023-07-27 09:54 | AM.OFFWIN_ITS ---
Intake Vital Signs 07/27/23 09:54 Height 5 ft 3 in Weight 135 lb BMI 23.9 BP 128/74 Blood Pressure Location Lt brachial Position Sitting Pulse 83 Pulse Source Pulse Oximeter Temp 98.8 F Temp Source Temporal Artery Scan Pulse Oximetry (%) 98 Oxygen Delivery Method Room Air Intake Visit Reasons: EP fever sore throat body pain [id number] Intake Note: pt is here today for fever sore throat body pain started yesterday Patient Tobacco Use Status: Never used Tobacco Allergies IV MED FOR VOMITING Allergy (Unknown, Uncoded 07/27/23 10:21) unknown Medication List - Last Reconciled 07/27/23 by Jorge Douglass MD azithromycin (Zithromax) take 500 mg today (day 1), then 250 mg for 4 days (days 2-5) PO ibuprofen 400 mg PO Q8H PRN Do you need a note to return to daycare/school/sports/work: Yes HPI EP fever sore throat body pain [id number] HPI Details Patient presents for a sick visit. Reporting symptoms of sinus congestion, sore throat and difficulty swallowing. Low-grade fever. No family member is sick. No recent travel. Patient reports symptoms of malaise and fatigue. [facility] Medical History JESSE III (cervical intraepithelial neoplasia grade III) with severe dysplasia Abscess of buttock Abdominal pain GERD (gastroesophageal reflux disease) Constipation Nausea Vertigo HPV (human papilloma virus) anogenital infection Colon polyps Surgical History Hx of colonoscopy History of tubal ligation H/O LEEP History of surgery History of cholecystectomy History of appendectomy Family History Mother Colon cancer Maternal Grandfather No problems noted. Father Asthma Brother Lymphoma involving liver Maternal Aunt Breast cancer Social History Household Members: Significant Other Household Members Other:: lives with BF Housing: Apartment Alcohol intake: never Comment: baseline Patient Tobacco Use Status: Never used Tobacco e-Cigarette/Vaping Use: Never Used Second Hand Smoke Exposure: No Advance Directives Date on File: 04/07/21 service: No Current occupational status: employed Current occupation: [employer] Sexual orientation: Straight/Heterosexual Gender identity: Female Cognitive needs: No Hearing needs: No Vision needs: Yes Female Reproductive History Menstrual Age of Menarche: 14 Physical Exam Vital Signs: Last Vital Signs Temp 98.8 F 07/27/23 09:54 Pulse 83 07/27/23 09:54 BP 128/74 07/27/23 09:54 Pulse Ox 98 07/27/23 09:54 Oxygen Delivery Method Room Air 07/27/23 09:54 BMI result Body Mass Index 23.9 Const General: cooperative and healthy appearing Nutritional Appearance: well nourished Orientation/consciousness: patient oriented x3 Limitations: no limitations HEENT Head: Yes normal to inspection Eyes General: appearance normal, both eyes and all related structures Neck Neck: Yes normal visual inspection Chest Chest palpation & inspection: normal palpation of entire chest wall Resp Effort & Inspection: normal respiratory effort Neuro General: patient oriented x3 Assessment & Plan Assessment & Plan (1) Upper respiratory tract infection: Code(s): J06.9 - Acute upper respiratory infection, unspecified Plan: Antibiotics ordered. Increase fluid intake. Tylenol for aches and pains. If symptoms worsen, follow-up here for a recheck. Orders: Orders SARS-CoV2/FLU/RSV Today R43.9 - Unspecified disturbances of smell and taste Jorge Douglass MD AMB Rapid Strep Screen Today Z13.9 - Encounter for screening, unspecified Sariah Fermin PA-C Medications: New azithromycin (Zithromax) take 500 mg today (day 1), then 250 mg for 4 days (days 2-5) PO 6 tabs 0RF Jorge Douglass MD Refilled ibuprofen take with food 400 mg PO Q8H PRN 30 tabs 0RF back pain Jorge Douglass MD Coding Level of Care Code Est Pt Level 3 (53897) Diagnoses Upper respiratory tract infection J06.9
== END 2023-07-27 10:26 | disposition home or self-care (01) ==
PROVIDERS: PCP Internal Medicine; Visit Provider Internal Medicine
DX: J06.9 Acute upper respiratory infection, unspecified (principal)
CPT/HCPCS: 99213

== ENCOUNTER 2023-07-27 13:22 | Outpatient (REF) | payer OTHER, SELFPAY ==
[2023-07-27 14:40] LABS: Influenza A PCR POSITIVE (Negative); Influenza B PCR NEGATIVE (Negative); Resp Syncy Virus RNA Qual PCR NEGATIVE (Negative); SARS COV2 PCR INHOUSE NEGATIVE (Negative)
== END 2023-07-27 13:23 | disposition home or self-care (01) ==
LOC: HO.LNP 13:22
PROVIDERS: Visit Provider Internal Medicine
DX: Z11.52 Encounter for screening for COVID-19 (principal); R43.9 Unspecified disturbances of smell and taste
CPT/HCPCS: 0241U

== ENCOUNTER 2023-10-10 11:42 | Emergency (ER) | payer OTHER, SELFPAY ==
--- NOTE | ~2023-10-10 | XR_ITS ---
EXAMINATION: XR CERVICAL SPINE CLINICAL INFORMATION: Pain. COMPARISON: Cervical spine radiographs dated 10/24/2021. TECHNIQUE: AP, lateral, open-mouth, and foraminal views of the cervical spine. FINDINGS: There are no prevertebral soft tissue or bony abnormalities demonstrated. No compression fractures or subluxations are identified. Alignment is maintained at the atlanto-axial articulation. The disc spaces are preserved. No endplate changes are seen. The prevertebral soft tissues are normal. The foramina are patent. XR/XR cervical spine 2V IMPRESSION: Unremarkable examination.
[2023-10-10 12:01] VITALS: BP 158/97; PULSE 62; RESP 16; TEMP 36.4; O2SAT 98; BMI 28.2
--- NOTE | 2023-10-10 12:05 | ED_ITS ---
HPI - General Adult General Chief complaint: Headache Stated complaint: Tingling L Arm Time Seen by Provider: 10/10/23 14:06 Source: patient, RN notes reviewed and old records reviewed Mode of arrival: ambulatory Limitations: no limitations History of Present Illness HPI narrative: 57-year-old female with past medical history significant for vertigo, GERD presents for evaluation of left-sided neck pain and tingling in her left arm. 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 but tries not to when she can avoid it Denies any history of severe neck problems Patient reports that she occasionally gets a left-sided headache in association with her neck pain and tingling in the arm Denies any trauma to the head, neck or left upper extremity Patient states that she never has any chest pain with these symptoms Denies any shortness of breath Related Data Previous Rx's Medication Instructions Recorded azithromycin 250 mg tablet See Rx Instructions PO .COMPLEX #6 07/27/23 (Zithromax) tabs ibuprofen 400 mg tablet 400 mg PO Q8H PRN back pain #30 07/27/23 tabs cyclobenzaprine 10 mg tablet 10 mg PO TID PRN muscle spasm #20 10/10/23 tabs dexamethasone 4 mg tablet 4 mg PO BID #6 tabs 10/10/23 Allergies Allergy/AdvReac Type Severity Reaction Status Date / Time IV MED FOR VOMITING Allergy Unknown unknown Uncoded 07/27/23 10:21 Review of Systems 2 Constitutional: Constitutional: Denies body ache(s), Denies chills, Denies fever(s), Reports headache(s) and Denies weakness Eyes: Eyes: Denies blurry vision ENT: Reports headache(s) Cardiovascular: Cardiovascular: Denies chest pain and Denies dyspnea Respiratory: Respiratory: Denies cough and Denies dyspnea Gastrointestinal: Gastrointestinal: Denies abdominal pain, Denies nausea and Denies vomiting Musculoskeletal: Musculoskeletal: Denies back pain, Reports numbness and Reports tingling Integumentary/Breasts: Skin/Breast: Denies rash Neurologic: Reports headache(s), Reports numbness, Reports tingling and Denies weakness PMFSH Past Medical History Medical History JESSE III (cervical intraepithelial neoplasia grade III) with severe dysplasia Abscess of buttock Abdominal pain GERD (gastroesophageal reflux disease) Constipation Nausea Vertigo HPV (human papilloma virus) anogenital infection Colon polyps Surgical History Hx of colonoscopy History of tubal ligation H/O LEEP History of surgery History of cholecystectomy History of appendectomy Family History Family History Mother Colon cancer Maternal Grandfather No problems noted. Father Asthma Brother Lymphoma involving liver Maternal Aunt Breast cancer Social History Social History Household Members: Significant Other Household Members Other:: lives with BF Housing: Apartment Alcohol intake: never Comment: baseline Patient Tobacco Use Status: Never used Tobacco Smoked in Last 30 Days: No e-Cigarette/Vaping Use: Never Used Second Hand Smoke Exposure: No Use of substances other than those prescribed or required for medical reasons: No Advance Directives: Yes Advance Directives on File: Yes Advance Directives Date on File: 04/07/21 service: No Current occupational status: employed 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 Sexual orientation: Straight/Heterosexual Gender identity: Female Cognitive needs: No Hearing needs: No Vision needs: Yes Physical Exam ED Vital Signs: Vital Signs - 24 hr 10/10/23 12:01 10/10/23 17:38 Temperature 97.6 F 98.2 F Pulse Rate 62 61 Respiratory Rate 16 18 Blood Pressure 158/97 H 153/92 H Pulse Oximetry 98 97 Oxygen Delivery Method Room Air Room Air BMI result Body Mass Index 28.2 Const General: healthy appearing, comfortable, no acute distress, alert and awake Nutritional Appearance: well nourished Orientation/consciousness: patient oriented x3 HENMT Head: Yes normocephalic and Yes atraumatic Eyes Eyelids: Yes eyelids normal Conjunctivae: conjunctivae normal Sclerae: sclerae normal Corneas: corneas normal Pupils: Equal, round and reactive pupils present EOM: EOMs intact bilaterally Neck Neck: Yes full ROM and Yes no meningeal signs Resp Effort & Inspection: normal respiratory effort, able to speak in complete sentences and not labored Cardio Rate: regular rate Rhythm: regular rhythm Back/Spine/Pelvis Other: Patient does have tenderness to the left cervical paraspinous muscles. No vertebral tenderness. She does have full range of motion to the neck but has pain elicited in the left neck with rotation to the right Skin General skin exam: elasticity normal Neuro General: patient oriented x3 and no meningeal signs Cranial nerves: Yes Equal, round and reactive pupils present and Yes Bilaterally intact EOM present Cognition (Neuro): normal cognition Motor exam (neuro): 5/5 motor strength present throughout (Strength equal to bilateral upper extremities) and Normal motor muscle tone present throughout Extrem Other: Moving all extremities well without any obvious deformities Course Course Course Narrative: Patient complains of left side neck pain associated with pain radiating down the arm on the left side and tingling and a numb feeling in the left arm, 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 Time: 18:17 Medical Decision Making Medical Decision Making MDM Narrative: 57-year-old female presents for evaluation of neck pain and tingling her left arm. History exam is most consistent with cervicalgia. However given her age, we will get basic workup, labs, EKG. Will get an x-ray of the neck to evaluate for severe osteoarthritis. Low suspicion for cervical fracture as there was no trauma. She has no neuro deficits, her headache is likely related to a tension headache. No fevers or chills to suggest infectious cause Differential Diagnosis Differential Diagnoses: The differential diagnosis associated with the presentation includes Cervicalgia Muscle strain Radiculopathy Tension headache Cluster headache Coronary artery disease less likely Lab Data MDM Lab Attestation statement: I reviewed the patient's lab results. Electrolytes within normal limits, troponin undetectable. 10/10/23 17:24 10/10/23 17:24 Labs: Lab Results 10/10/23 Range/Units 17:24 Sodium 143 (135-145) mmol/L Potassium 3.5 (3.3-5.1) mmol/L Chloride 108 (96-108) mmol/L Carbon Dioxide 26 (22-29) mmol/L Anion Gap 13 (12-20) BUN 10 (9-16) mg/dL Creatinine 0.61 (0.5-1.4) mg/dL Estim Creat Clear Calc 99.1 Estimated GFR > 60 Random Glucose 96 (60-115) mg/dL Calcium 9.5 (8.4-10.2) mg/dL Magnesium 2.2 (1.6-2.6) mg/dL Troponin I High Sens < 2.7 (<3.5-17.0) ng/L Independent Interpretation I performed an independent interpretation of an: EKG (Normal sinus rhythm with a rate of [address] segment changes) Radiology Impression Discussion of test interpretation with radiology: I have reviewed the radiologist's reading. (Unremarkable cervical spine) Discharge Plan Discharge Clinical Impression: Cervical radiculopathy Patient Disposition: Home, Self-Care Instructions: Cervical Radiculopathy (ED) Additional Instructions: Your workup in the ER today was reassuring. Includes your blood work, x-ray, EKG. Take dexamethasone twice daily for the next 3 days. This you may take before work as it will not make you sleepy Take cyclobenzaprine as needed for muscle spasms. This will make you sleepy and you should not take before work or before driving. Follow-up with your primary doctor If her symptoms persist, you may benefit from an outpatient cervical MRI Prescriptions: New dexamethasone 4 mg tablet 4 mg PO BID Qty: 6 0RF cyclobenzaprine 10 mg tablet 10 mg PO TID PRN (Reason: muscle spasm) Qty: 20 0RF No Action ibuprofen 400 mg tablet 400 mg PO Q8H PRN (Reason: back pain) Qty: 30 0RF Rx Instructions: take with food azithromycin [Zithromax] 250 mg tablet See Rx Instructions PO .COMPLEX Qty: 6 0RF Rx Instructions: take 500 mg today (day 1), then 250 mg for 4 days (days 2-5) PO
--- NOTE | 2023-10-10 16:56 | ECG_ITS ---
Test Reason : PAIN Blood Pressure : / mmHG Vent. Rate : 063 BPM Atrial Rate : 063 BPM P-R Int : 184 ms QRS Dur : 084 ms QT Int : 416 ms P-R-T Axes : 046 003 058 degrees QTc Int : 425 ms Normal sinus rhythm Normal ECG When compared with ECG of 16-JUN-2022 04:02, No significant change was found Referred By: Thony Ovalle Electronically Signed By:RIA CÁRDENAS MD
--- NOTE | 2023-10-10 16:57 | PC.NURSE ---
Pt brought to RM 20 for treatment, assumed care of pt at this time. Provider to bedside for primary eval.
[2023-10-10 17:38] VITALS: BP 153/92; PULSE 61; RESP 18; TEMP 36.8; O2SAT 97
[2023-10-10 17:43] LABS: MANUAL DIFF FLAG NO
[2023-10-10 18:01] LABS: Anion Gap 13 (12-20); Blood Urea Nitrogen 10 mg/dL (9-16); Calcium 9.5 mg/dL (8.4-10.2); Carbon Dioxide 26 mmol/L (22-29); Chloride 108 mmol/L (96-108); Creatinine Clr Calc Pharmacy 99.1; Estimated Glomerular Filt Rate > 60; Glucose Random 96 mg/dL (60-115); Magnesium 2.2 mg/dL (1.6-2.6); Potassium 3.5 mmol/L (3.3-5.1); Sodium 143 mmol/L (135-145)
[2023-10-10 18:10] LABS: Troponin-I High Sensitivity < 2.7 ng/L (<3.5-17.0)
[2023-10-10 18:17] LABS: Basophils Percent Auto 0.3 % (0-2); Eosinophils Absolute Auto 0.1 X10*3/uL (0.0-0.4); Eosinophils Percent Auto 1.5 % (0-4); Hemoglobin 13.2 g/dl (12.0-16.0); Imm Gran Abs Auto 0.04 X10*3/uL (0.00-0.03); Imm Gran Pct Auto 0.5 % (0.0-0.4); Lymphocytes Absolute Auto 4.1 X10*3/uL (1.2-4.9); Lymphocytes Percent Auto 46.3 % (20-40); Mean Corpuscular HGB Conc 33.8 g/dl (31.0-35.0); Mean Corpuscular Hemoglobin 31.2 pg (27.0-33.0); Mean Corpuscular Volume 92.2 fL (80.0-98.0); Mean Platelet Volume 9.7 fL (9.4-12.3); Monocytes Absolute Auto 0.8 X10*3/uL (0.1-1.2); Monocytes Percent Auto 9.3 % (2-11); Neutrophils Absolute Auto 3.7 x10*3/uL (2.0-8.3); Neutrophils Percent Auto 42.1 % (45-73); Platelet Count 294 X10*3/uL (160-400); Red Blood Count 4.23 X10*6/uL (4.20-5.50); Red Cell Distribution Width 12.6 % (11.0-16.0); White Blood Count 8.8 X10*3/uL (4.8-10.8)
== END 2023-10-10 19:27 | disposition home or self-care (01) ==
PROVIDERS: Physician Assistant; Emergency Provider Emergency Medicine; PCP Internal Medicine
DX: M54.12 Radiculopathy, cervical region (principal); R07.89 Other chest pain; M54.2 Cervicalgia; Z79.899 Other long term (current) drug therapy
CPT/HCPCS: 36415; 72040; 80048; 83735; 84484; 85025; 93005; 99283; 99284

== ENCOUNTER → 2023-10-10 16:56 | Outpatient (BNV) | payer OTHER, SELFPAY | PROVIDERS: Emergency Provider Emergency Medicine; PCP Internal Medicine; Visit Provider Internal Medicine Cardiovascular Disease | DX: R52 Pain, unspecified (principal) | CPT/HCPCS: 93010 ==

== ENCOUNTER 2023-10-31 14:19 | Outpatient (AMB) | payer OTHER, SELFPAY ==
[2023-10-31 14:20] VITALS: BP 120/72; PULSE 86; O2SAT 98; BMI 24.8
--- NOTE | 2023-10-31 14:20 | MHC.PC.OV ---
Vital Signs 10/31/23 14:20 Height 5 ft 3 in Weight 140 lb BMI 24.8 BP 120/72 Blood Pressure Location Lt brachial Position Sitting Pulse 86 Pulse Source Pulse Oximeter Pulse Oximetry (%) 98 Oxygen Delivery Method Room Air Intake Visit Reasons: ED [facility] [place]13/23- left arm tingles+numbness Provider Contracting Consultant Required: No Pressure Controller: Not Required per policy Accompanied by: Self / Same As Patient Allergies IV MED FOR VOMITING Allergy (Unknown, Uncoded 10/31/23 14:20) unknown Medication List - Last Reconciled 11/01/23 by Jose Alberto Dumas MD cyclobenzaprine 10 mg PO TID PRN dexamethasone 4 mg PO BID ibuprofen 400 mg PO Q8H PRN Tobacco use date assessed: 10/31/23 Dental Screening Dental Screen Date: 10/31/23 Did you have a dental visit in the last 12 months?: Yes Did you have a dental problem in the last 6 months where you did not have access to dental care?: No Was dental information given to patient?: Patient has dentist HPI ED [facility] [place]13/23- left arm tingles+numbness HPI Details left side of neck with pain and parestheias down left arm PFSH Medical History JESSE III (cervical intraepithelial neoplasia grade III) with severe dysplasia Abscess of buttock Abdominal pain GERD (gastroesophageal reflux disease) Constipation Nausea Vertigo HPV (human papilloma virus) anogenital infection Colon polyps Surgical History Hx of colonoscopy History of tubal ligation H/O LEEP History of surgery History of cholecystectomy History of appendectomy Family History Mother Colon cancer Maternal Grandfather No problems noted. 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 1. Little interest or pleasure in doing things: several days 2. Feeling down, depressed, or hopeless: several days 3. Trouble falling or staying asleep, or sleeping too much: not at all 4. Feeling tired or having little energy: not at all 5. Poor appetite or overeating: not at all 6. Feeling bad about yourself - or that you are a failure or have let yourself or your family down: not at all 7. Trouble concentrating on things, such as reading the newspaper or watching television: not at all 8. Moving or speaking so slowly that other people could have noticed. Or the opposite - being so fidgety or restless that you have been moving around a lot more than usual: not at all 9. Thoughts that you would be better off or of hurting yourself in some way: not at all Total score: 2 Depression Screening Interpretation: Positive Depression Screening Done: Yes 50944 - PHQ-9 Billing: Yes Source: Developed by Drs. Mateo Menendez, Marie Engle, Leonardo Christiansen and colleagues, with an educational tatum from [employer]. Thrive Questionnaire Date Thrive assessed: 10/31/23 I am a: Patient What is your living situation today?: I have a steady place to live Within the past 12 months, did the food you bought not last and you didn't have the money to get more?: Never true Within the past 12 months, did you worry whether your food would run out before you got money to buy more?: Never true Do you have trouble paying for medicines?: No Do you have trouble getting transportation to medical appointments?: No Do you have trouble paying your heating and electricity bill?: No Do you have trouble taking care of your child, family member or friend?: No Do you have trouble with day-to-day activities such as bathing, preparing meals, shopping, managing finances, etc.?: No Are you currently unemployed and looking for a job?: No Are you interested in more education?: No Please select the resources that you would like help with: None THRIVE Score: 0 AUDIT C Alcohol Use Questionnaire (AUDIT-C) 1. How often do you have a drink containing alcohol?: Never Total Score: 0 Score Reviewed/Action Taken: Yes ANNAMARIA-7 AMB Questionnaire ANNAMARIA-7 Date ANNAMARIA - 7 assessed: 10/31/23 Feeling nervous, anxious, or on edge: 0 = Not at all Not being able to stop or control worryin = Not at all Worrying too much about different things: 0 = Not at all Trouble relaxin = Not at all Being so restless that it is hard to sit still: 0 = Not at all Becoming easily annoyed or irritable: 0 = Not at all Feeling afraid as if something awful might happen: 0 = Not at all Total ANNAMARIA-7 score (0-4 normal; 5-9 mild; 10-14 moderate; 15-21 severe): 0 Source: Developed by Drs. Mateo Menendez, Marie Engle, Leonardo Christiansen and colleagues, with an educational tatum from [employer]. Review of Systems Const Denies chills, Denies headache(s) and Denies weight loss ENT Denies headache(s) Card Denies chest pain, Denies syncope, Denies irregular heart rhythm and Denies dyspnea Resp Denies chest congestion, Denies cough and Denies dyspnea GI Denies abdominal pain, Denies change in stool character, Denies nausea and Denies vomiting Musc Denies deformity and Denies joint swelling Neuro Denies syncope and Denies headache(s) Physical exam (Primary Care) Vital Signs: Last Vital Signs Pulse 86 10/31/23 14:20 BP 120/72 10/31/23 14:20 Pulse Ox 98 10/31/23 14:20 Oxygen Delivery Method Room Air 10/31/23 14:20 BMI result Body Mass Index 24.8 Tobacco/Smoking Status: Tobacco use Status Tobacco use date assessed 10/31/23 10/31/23 14:27 Patient Tobacco Use Status Never used Tobacco 10/31/23 14:27 e-Cigarette/Vaping Use Never Used 10/31/23 14:27 PHQ-9: PHQ-9 Score PHQ-9: Total score 2 10/31/23 14:27 Depression Screening Interpretation: Positive Thrive Assessment: Date of Thrive Assessment Date Thrive assessed 10/31/23 10/31/23 14:27 Const General: cooperative, comfortable, no acute distress and alert Neck Neck: Yes no lymphadenopathy Thyroid: Thyroid normal Resp Effort & Inspection: normal respiratory effort Auscultation: clear to auscultation bilaterally Percussion: percussion normal Cardio Jugular venous distension: no JVD Palpation: normal PMI Rate: regular rate Rhythm: regular rhythm Heart sounds: S1 normal heart sound present and S2 normal heart sound present GI Inspection: Yes normal to inspection Palpation (GI): No hepatosplenomegaly present Skin General skin exam: no rashes or lesions noted Extrem General: Yes no clubbing, cyanosis or edema Assessment and Plan Assessment & Plan (1) Cervical radiculopathy: Code(s): M54.12 - Radiculopathy, cervical region Plan: ref for pt; xr already done Orders: Orders PT Evaluation and Treatment Today M54.12 - Radiculopathy, cervical region Coding Level of Care Code Est Pt Level 3 (43618) Diagnoses Cervical radiculopathy M54.12
== END 2023-10-31 14:36 | disposition home or self-care (01) ==
PROVIDERS: PCP Internal Medicine; Visit Provider Internal Medicine
DX: M54.12 Radiculopathy, cervical region (principal)
CPT/HCPCS: 99213

== ENCOUNTER 2024-02-21 10:46 | Outpatient (AMB) | payer OTHER, SELFPAY ==
[2024-02-21 10:49] VITALS: BP 118/80; PULSE 70; O2SAT 97; BMI 24.4
--- NOTE | 2024-02-21 10:49 | MHC.PC.OV ---
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: Not Required per policy Accompanied by: Self / Same As Patient Allergies IV MED FOR VOMITING Allergy (Unknown, Uncoded 02/21/24 10:50) unknown Medication List - Last Reconciled 02/21/24 by Jose Alberto Dumas MD cyclobenzaprine 10 mg PO TID PRN dexamethasone 4 mg PO BID ibuprofen 400 mg PO Q8H PRN Tobacco use date assessed: 10/31/23 Dental Screening Dental Screen Date: 10/31/23 HPI 3 month f/u HPI Details LUQ abd pain for a month PFSH Medical History JESSE III (cervical intraepithelial neoplasia grade III) with severe dysplasia Abscess of buttock Abdominal pain GERD (gastroesophageal reflux disease) Constipation Nausea Vertigo HPV (human papilloma virus) anogenital infection Colon polyps Surgical History Hx of colonoscopy History of tubal ligation H/O LEEP History of surgery History of cholecystectomy History of appendectomy Family History Mother Colon cancer Maternal Grandfather No problems noted. 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 Oniel, Leonardo Christiansen and colleagues, with an educational tatum from [employer]. Review of Systems Const Denies chills, Denies headache(s) and Denies weight loss ENT Denies headache(s) Card Denies chest pain, Denies syncope, Denies irregular heart rhythm and Denies dyspnea Resp Denies chest congestion, Denies cough and Denies dyspnea GI Denies change in stool character, Denies nausea and Denies vomiting Musc Denies deformity and Denies joint swelling Neuro Denies syncope and Denies headache(s) Physical exam (Primary Care) Vital Signs: Last Vital Signs Pulse 70 02/21/24 10:49 BP 118/80 02/21/24 10:49 Pulse Ox 97 02/21/24 10:49 Oxygen Delivery Method Room Air 02/21/24 10:49 BMI result Body Mass Index 24.4 Tobacco/Smoking Status: Tobacco use Status Tobacco use date assessed 10/31/23 02/21/24 10:54 Patient Tobacco Use Status Never used Tobacco 02/21/24 10:54 e-Cigarette/Vaping Use Never Used 02/21/24 10:54 Thrive Assessment: Date of Thrive Assessment Date Thrive assessed 10/31/23 02/21/24 10:54 Const General: cooperative, comfortable, no acute distress and alert Neck Neck: Yes no lymphadenopathy Thyroid: Thyroid normal Resp Effort & Inspection: normal respiratory effort Auscultation: clear to auscultation bilaterally Percussion: percussion normal Cardio Jugular venous distension: no JVD Palpation: normal PMI Rate: regular rate Rhythm: regular rhythm Heart sounds: S1 normal heart sound present and S2 normal heart sound present GI Inspection: Yes normal to inspection Palpation (GI): No hepatosplenomegaly present Skin General skin exam: no rashes or lesions noted Extrem General: Yes no clubbing, cyanosis or edema Assessment and Plan Assessment & Plan (1) Abdominal pain: Code(s): R10.9 - Unspecified abdominal pain Plan: labs and US Orders: Orders Lipid Panel Today Z13.220 - Encounter for screening for lipoid disorders Complete Blood Count Auto Diff Today Z13.0 - Encounter for screening for diseases of the blood and blood-forming organs and certain disorders involving the immune mechanism Comprehensive [place]. Panel Fast Today Z13.9 - Encounter for screening, unspecified US abdomen complete Today R10.9 - Unspecified abdominal pain Coding Level of Care Code Est Pt Level 3 (76057) Diagnoses Abdominal pain R10.9
== END 2024-02-21 11:02 | disposition home or self-care (01) ==
PROVIDERS: PCP Internal Medicine; Visit Provider Internal Medicine
DX: R10.9 Unspecified abdominal pain (principal)
CPT/HCPCS: 99213

== ENCOUNTER 2024-02-23 08:15 | Outpatient (REF) | payer OTHER, SELFPAY ==
[2024-02-23 08:35] LABS: MANUAL DIFF FLAG NO
[2024-02-23 08:51] LABS: Basophils Percent Auto 0.5 % (0-2); Eosinophils Absolute Auto 0.2 X10*3/uL (0.0-0.4); Eosinophils Percent Auto 1.7 % (0-4); Hematocrit 39.8 % (37.0-47.0); Hemoglobin 13.3 g/dl (12.0-16.0); Imm Gran Abs Auto 0.02 X10*3/uL (0.00-0.03); Imm Gran Pct Auto 0.2 % (0.0-0.4); Lymphocytes Percent Auto 46.6 % (20-40); Mean Corpuscular HGB Conc 33.4 g/dl (31.0-35.0); Mean Corpuscular Volume 92.8 fL (80.0-98.0); Mean Platelet Volume 9.4 fL (9.4-12.3); Monocytes Absolute Auto 0.8 X10*3/uL (0.1-1.2); Neutrophils Absolute Auto 3.6 x10*3/uL (2.0-8.3); Platelet Count 273 X10*3/uL (160-400); Red Blood Count 4.29 X10*6/uL (4.20-5.50); Red Cell Distribution Width 12.2 % (11.0-16.0); White Blood Count 8.6 X10*3/uL (4.8-10.8)
[2024-02-23 09:28] LABS: Alanine Aminotransferase 13 U/L (0-31); Albumin Level 4.4 g/dL (3.5-5.0); Alkaline Phosphatase 89 U/L (39-117); Anion Gap 13 (12-20); Aspartate Amino Transferase 18 U/L (5-31); Bilirubin Total 0.4 mg/dL (0.0-1.0); Blood Urea Nitrogen 14 mg/dL (9-16); Calcium 9.8 mg/dL (8.4-10.2); Carbon Dioxide 25 mmol/L (22-29); Chloride 109 mmol/L (96-108); Cholesterol 214 mg/dL (<200); Estimated Glomerular Filt Rate > 60; Glucose Fasting 101 mg/dL (60-99); HDL Cholesterol 54 mg/dL (>40); LDL Cholesterol Calculated 141 mg/dL (<100); Potassium 4.1 mmol/L (3.3-5.1); Sodium 143 mmol/L (135-145); Total Protein 7.3 g/dL (6.5-8.0); Triglycerides 96 mg/dL (<150)
== END 2024-02-23 08:16 | disposition home or self-care (01) ==
LOC: HO.LAB 08:15
PROVIDERS: PCP Internal Medicine; Visit Provider Internal Medicine
DX: Z13.0 Encounter for screening for diseases of the blood and blood-forming organs and certain disorders involving the immune mechanism (principal); Z13.220 Encounter for screening for lipoid disorders; Z13.9 Encounter for screening, unspecified
CPT/HCPCS: 36415; 80053; 80061; 85025

== ENCOUNTER 2024-03-20 08:20 | Outpatient (REF) | payer OTHER, SELFPAY ==
--- NOTE | ~2024-03-20 | US_ITS ---
EXAMINATION: US ABDOMEN COMPLETE CLINICAL INFORMATION: Unspecified abdominal pain. COMPARISON: Ultrasound abdomen 02/26/2023. Renal ultrasound 03/06/2006. CT abdomen and pelvis 09/17/2020. TECHNIQUE: Real-time imaging of the abdominal viscera. FINDINGS: PANCREAS: Normal. ABDOMINAL AORTA: The proximal, mid, and distal segments are normal in caliber. INFERIOR VENA CAVA: Visualized portions are normal. LIVER: Normal. The liver is normal in size. The liver contour is normal. Parenchymal echogenicity is normal. No focal hepatic lesion. There is no intrahepatic biliary duct dilatation seen. GALLBLADDER: Surgically absent. COMMON BILE DUCT: Normal in caliber measuring 0.44 cm in diameter. RIGHT KIDNEY: Normal. No hydronephrosis. No renal calculi or focal parenchymal lesions. The kidney measures 10.4 cm in maximum dimension. LEFT KIDNEY: Normal. No hydronephrosis. No renal calculi or focal parenchymal lesions. The kidney measures 10.3 cm in maximum dimension. SPLEEN: Accessory splenule incidentally noted. The spleen measures 9.8 cm in maximum dimension. FREE FLUID: None. US/US abdomen complete IMPRESSION: Status post cholecystectomy. No intra or extrahepatic biliary duct dilatation. Electronically signed by: Zuleika Bergman MD 04/07/2024 06:23 PM EDT
== END 2024-03-20 08:21 | disposition home or self-care (01) ==
LOC: HO.US 08:20
PROVIDERS: PCP Internal Medicine; Visit Provider Internal Medicine
DX: R10.9 Unspecified abdominal pain (principal)
CPT/HCPCS: 76700

== ENCOUNTER 2024-04-23 14:39 | Outpatient (AMB) | payer OTHER, SELFPAY ==
--- NOTE | 2024-04-23 14:46 | A.OFFPC_ITS ---
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 Required: No Accompanied by: Self / Same As Patient Allergies IV MED FOR VOMITING Allergy (Unknown, Uncoded 04/23/24 14:51) unknown Medication List - Last Reconciled 04/24/24 by Jose Alberto Dumas MD cyclobenzaprine 10 mg PO TID PRN dexamethasone 4 mg PO BID ibuprofen 400 mg PO Q8H PRN Tobacco use date assessed: 10/31/23 Dental Screening Dental Screen Date: 10/31/23 HPI ANNUAL HPI Details healthy; feels well PFSH Medical History JESSE III (cervical intraepithelial neoplasia grade III) with severe dysplasia Abscess of buttock Abdominal pain GERD (gastroesophageal reflux disease) Constipation Nausea Vertigo HPV (human papilloma virus) anogenital infection Colon polyps Surgical History Hx of colonoscopy History of tubal ligation H/O LEEP History of surgery History of cholecystectomy History of appendectomy Family History Mother Colon cancer Maternal Grandfather No problems noted. 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 2. Feeling down, depressed, or hopeless: not at all 3. Trouble falling or staying asleep, or sleeping too much: not at all 4. Feeling tired or having little energy: more than half the days 5. Poor appetite or overeating: not at all 6. Feeling bad about yourself - or that you are a failure or have let yourself or your family down: not at all 7. Trouble concentrating on things, such as reading the newspaper or watching television: not at all 8. Moving or speaking so slowly that other people could have noticed. Or the opposite - being so fidgety or restless that you have been moving around a lot more than usual: not at all 9. Thoughts that you would be better off or of hurting yourself in some way: not at all Source: Developed by Drs. Mateo Menendez, Marie Engle, Leonardo Christiansen and colleagues, with an educational tatum from [employer]. Thrive Questionnaire Date Thrive assessed: 10/31/23 I am a: Patient What is your living situation today?: I have a steady place to live Within the past 12 months, did the food you bought not last and you didn't have the money to get more?: Never true Within the past 12 months, did you worry whether your food would run out before you got money to buy more?: I choose not to answer this question Do you have trouble paying for medicines?: No Do you have trouble getting transportation to medical appointments?: No Do you have trouble paying your heating and electricity bill?: No Do you have trouble taking care of your child, family member or friend?: No Do you have trouble with day-to-day activities such as bathing, preparing meals, shopping, managing finances, etc.?: No Are you currently unemployed and looking for a job?: No Are you interested in more education?: No Please select the resources that you would like help with: None Currently or been in a relationship where the following occur: I choose not to answer THRIVE Score: 0 AUDIT C Alcohol Use Questionnaire (AUDIT-C) 1. How often do you have a drink containing alcohol?: Never Total Score: 0 ANNAMARIA-7 AMB Questionnaire ANNAMARIA-7 Date ANNAMARIA - 7 assessed: 10/31/23 Feeling nervous, anxious, or on edge: 0 = Not at all Not being able to stop or control worryin = Not at all Worrying too much about different things: 1 = Several days Trouble relaxin = Not at all Being so restless that it is hard to sit still: 0 = Not at all Becoming easily annoyed or irritable: 0 = Not at all Feeling afraid as if something awful might happen: 0 = Not at all Total ANNAMARIA-7 score (0-4 normal; 5-9 mild; 10-14 moderate; 15-21 severe): 1 Source: Developed by Drs. Mateo Menendez, Marie Engle, Leonardo Christiansen and colleagues, with an educational tatum from [employer]. Review of Systems Const Denies chills, Denies fatigue, Denies headache(s) and Denies weight loss Eyes Denies change in vision, Denies diplopia and Denies eye pain ENT Denies vertigo, Denies dizziness, Denies headache(s) and Denies nasal discharge Card Denies chest pain, Denies rapid heart rate and Denies dyspnea on exertion Resp Denies chest congestion, Denies cough, Denies pain with cough and Denies dyspnea on exertion GI Denies abdominal pain, Denies hematochezia and Denies change in bowel habits Musc Denies myalgias, Denies arthralgias and Denies joint swelling Skin/Breast Denies lesions and Denies unusual bruising Neuro Denies vertigo, Denies dizziness, Denies headache(s) and Denies focal weakness Endo Denies fatigue Physical exam (Primary Care) Vital Signs: Last Vital Signs Pulse 81 04/23/24 14:47 BP 114/70 04/23/24 14:47 Pulse Ox 98 04/23/24 14:47 Oxygen Delivery Method Room Air 04/23/24 14:47 BMI result Body Mass Index 24.4 Tobacco/Smoking Status: Tobacco use Status Tobacco use date assessed 10/31/23 04/23/24 14:51 Patient Tobacco Use Status Never used Tobacco 04/23/24 14:51 Tobacco use type Cigarette 04/23/24 14:51 e-Cigarette/Vaping Use Never Used 04/23/24 14:51 Thrive Assessment: Date of Thrive Assessment Date Thrive assessed 10/31/23 04/23/24 14:51 Currently or been in a relationship where the following occur: I choose not to answer Const General: cooperative, healthy appearing and no acute distress Orientation/consciousness: oriented to person, oriented to place and oriented to time HENMT Head: Yes normal to inspection, Yes normocephalic and Yes atraumatic Mouth: Normal oral and palatal mucosa present and tongue normal Throat: Yes posterior oropharynx normal and Yes uvula midline Eyes General: appearance normal, both eyes and all related structures Neck Neck: Yes normal visual inspection, Yes full ROM and Yes no lymphadenopathy Thyroid: Thyroid normal Carotids: normal carotid upstroke Chest Chest palpation & inspection: normal inspection of the chest Resp Effort & Inspection: normal respiratory effort and able to speak in complete sentences Auscultation: clear to auscultation bilaterally Cardio Jugular venous distension: no JVD Palpation: normal PMI Rate: regular rate Rhythm: regular rhythm Heart sounds: S1 normal heart sound present and S2 normal heart sound present GI Inspection: Yes normal to inspection Palpation (GI): Soft to palpation and No hepatosplenomegaly present Auscultation: normal bowel sounds General: Yes no CVA tenderness Back/Spine/Pelvis Back: no CVA tenderness Skin General skin exam: no rashes or lesions noted Neuro General: oriented to person, oriented to place and oriented to time Extrem General: Yes normal to inspection and Yes full ROM Assessment and Plan Assessment & Plan (1) Physical exam: Code(s): Z00.00 - Encounter for general adult medical examination without abnormal findings Plan: stable; do labs Orders: Orders Lipid Panel Today Z13.220 - Encounter for screening for lipoid disorders Thyroid Stimulating Hormone Today Z13.29 - Encounter for screening for other suspected endocrine disorder Complete Blood Count Auto Diff Today Z13.0 - Encounter for screening for diseases of the blood and blood-forming organs and certain disorders involving the immune mechanism Comprehensive [place]. Panel Fast Today Z13.9 - Encounter for screening, unspecified Coding Level of Care Code Est Pt Prev Care 40-64y(56724) Diagnoses Physical exam Z00.00
[2024-04-23 14:47] VITALS: BP 114/70; PULSE 81; O2SAT 98; BMI 24.4
== END 2024-04-23 16:55 | disposition home or self-care (01) ==
PROVIDERS: PCP Internal Medicine; Visit Provider Internal Medicine
DX: Z00.00 Encounter for general adult medical examination without abnormal findings (principal)

== ENCOUNTER → 2024-04-23 14:39 | Outpatient (BNVA) | payer OTHER, SELFPAY | PROVIDERS: PCP Internal Medicine; Visit Provider Internal Medicine | DX: Z00.00 Encounter for general adult medical examination without abnormal findings (principal) | CPT/HCPCS: 99396 ==

== ENCOUNTER 2024-08-05 13:29 | Outpatient (AMB) | payer OTHER, SELFPAY ==
--- NOTE | 2024-08-05 13:38 | MHC.PC.OV ---
Vital Signs 08/05/24 13:40 Height 5 ft 3 in Weight 139 lb 4 oz BMI 24.7 BP 120/74 Blood Pressure Location Lt brachial Position Sitting Pulse 79 Pulse Source Pulse Oximeter Pulse Oximetry (%) 98 Oxygen Delivery Method Room Air Intake Visit Reasons: 3 month f/u Intake Note: Patient is here to follow up on GERD, Back pain. 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 Education: Not Required per policy Accompanied by: Self / Same As Patient Allergies IV MED FOR VOMITING Allergy (Unknown, Uncoded 08/05/24 13:39) unknown Tobacco use date assessed: 08/05/24 Dental Screening Dental Screen Date: 08/05/24 Did you have a dental visit in the last 12 months?: No Did you have a dental problem in the last 6 months where you did not have access to dental care?: No Was dental information given to patient?: No HPI 3 month f/u HPI Details fatigue for a few months PFSH Medical History JESSE III (cervical intraepithelial neoplasia grade III) with severe dysplasia Abscess of buttock Abdominal pain GERD (gastroesophageal reflux disease) Constipation Nausea Vertigo HPV (human papilloma virus) anogenital infection Colon polyps Surgical History Hx of colonoscopy History of tubal ligation H/O LEEP History of surgery History of cholecystectomy History of appendectomy Family History Mother Colon cancer Maternal Grandfather No problems noted. 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 1. Little interest or pleasure in doing things: not at all 2. Feeling down, depressed, or hopeless: not at all 3. Trouble falling or staying asleep, or sleeping too much: not at all 4. Feeling tired or having little energy: not at all 5. Poor appetite or overeating: not at all 6. Feeling bad about yourself - or that you are a failure or have let yourself or your family down: not at all 7. Trouble concentrating on things, such as reading the newspaper or watching television: not at all 8. Moving or speaking so slowly that other people could have noticed. Or the opposite - being so fidgety or restless that you have been moving around a lot more than usual: not at all 9. Thoughts that you would be better off or of hurting yourself in some way: not at all Total score: 0 Depression Screening Interpretation: Negative Depression Screening Done: Yes Source: Developed by Drs. Mateo Menendez, Marie Engle, Leonardo Christiansen and colleagues, with an educational tatum from [employer]. Thrive Questionnaire Date Thrive assessed: 08/05/24 AUDIT C Alcohol Use Questionnaire (AUDIT-C) 1. How often do you have a drink containing alcohol?: Never Total Score: 0 ANNAMARIA-7 AMB Questionnaire ANNAMARIA-7 Date ANNAMARIA - 7 assessed: 08/05/24 Feeling nervous, anxious, or on edge: 0 = Not at all Not being able to stop or control worryin = Not at all Worrying too much about different things: 0 = Not at all Trouble relaxin = Not at all Being so restless that it is hard to sit still: 0 = Not at all Becoming easily annoyed or irritable: 0 = Not at all Feeling afraid as if something awful might happen: 0 = Not at all Total ANNAMARIA-7 score (0-4 normal; 5-9 mild; 10-14 moderate; 15-21 severe): 0 Source: Developed by Drs. Mateo Menendez, Marie Engle, Leonardo Christiansen and colleagues, with an educational tatum from [employer]. Review of Systems Const Denies chills, Denies headache(s) and Denies weight loss ENT Denies headache(s) Card Denies chest pain, Denies syncope, Denies irregular heart rhythm and Denies dyspnea Resp Denies chest congestion, Denies cough and Denies dyspnea GI Denies abdominal pain, Denies change in stool character, Denies nausea and Denies vomiting Musc Denies deformity and Denies joint swelling Neuro Denies syncope and Denies headache(s) Physical exam (Primary Care) Vital Signs: Last Vital Signs Pulse 79 08/05/24 13:40 BP 120/74 08/05/24 13:40 Pulse Ox 98 08/05/24 13:40 Oxygen Delivery Method Room Air 08/05/24 13:40 BMI result Body Mass Index 24.7 Tobacco/Smoking Status: Tobacco use Status Tobacco use date assessed 08/05/24 08/05/24 13:42 Patient Tobacco Use Status Never used Tobacco 08/05/24 13:42 Tobacco use type Cigarette 08/05/24 13:42 e-Cigarette/Vaping Use Never Used 08/05/24 13:42 PHQ-9: PHQ-9 Score PHQ-9: Total score 0 08/05/24 13:42 Depression Screening Interpretation: Negative Thrive Assessment: Date of Thrive Assessment Date Thrive assessed 08/05/24 08/05/24 13:42 Const General: cooperative, comfortable, no acute distress and alert Neck Neck: Yes no lymphadenopathy Thyroid: Thyroid normal Resp Effort & Inspection: normal respiratory effort Auscultation: clear to auscultation bilaterally Percussion: percussion normal Cardio Jugular venous distension: no JVD Palpation: normal PMI Rate: regular rate Rhythm: regular rhythm Heart sounds: S1 normal heart sound present and S2 normal heart sound present GI Inspection: Yes normal to inspection Palpation (GI): No hepatosplenomegaly present Skin General skin exam: no rashes or lesions noted Extrem General: Yes no clubbing, cyanosis or edema Coding Level of Care Code Est Pt Level 3 (55847) Diagnoses Fatigue R53.83 Assessment & Plan Assessment & Plan (1) Fatigue: Code(s): R53.83 - Other fatigue Plan: labs ordered
[2024-08-05 13:40] VITALS: BP 120/74; PULSE 79; O2SAT 98; BMI 24.7
== END 2024-08-05 13:55 | disposition home or self-care (01) ==
PROVIDERS: PCP Internal Medicine; Visit Provider Internal Medicine
DX: R53.83 Other fatigue (principal)

== ENCOUNTER → 2024-08-05 13:29 | Outpatient (BNVA) | payer OTHER, SELFPAY | PROVIDERS: PCP Internal Medicine; Visit Provider Internal Medicine | DX: R53.83 Other fatigue (principal) | CPT/HCPCS: 96127; 99212 ==

== ENCOUNTER 2024-08-11 08:10 | Outpatient (REF) | payer OTHER, SELFPAY ==
[2024-08-11 08:26] LABS: MANUAL DIFF FLAG NO
[2024-08-11 08:57] LABS: Basophils Percent Auto 0.3 % (0-2); Eosinophils Absolute Auto 0.1 X10*3/uL (0.0-0.4); Eosinophils Percent Auto 1.8 % (0-4); Hematocrit 40.1 % (37.0-47.0); Hemoglobin 13.5 g/dl (12.0-16.0); Imm Gran Abs Auto 0.01 X10*3/uL (0.00-0.03); Imm Gran Pct Auto 0.1 % (0.0-0.4); Lymphocytes Absolute Auto 3.7 X10*3/uL (1.2-4.9); Lymphocytes Percent Auto 47.6 % (20-40); Mean Corpuscular HGB Conc 33.7 g/dl (31.0-35.0); Mean Corpuscular Hemoglobin 31.2 pg (27.0-33.0); Mean Corpuscular Volume 92.6 fL (80.0-98.0); Mean Platelet Volume 9.1 fL (9.4-12.3); Monocytes Absolute Auto 0.7 X10*3/uL (0.1-1.2); Monocytes Percent Auto 8.4 % (2-11); Neutrophils Absolute Auto 3.2 x10*3/uL (2.0-8.3); Neutrophils Percent Auto 41.8 % (45-73); Platelet Count 291 X10*3/uL (160-400); Red Blood Count 4.33 X10*6/uL (4.20-5.50); Red Cell Distribution Width 12.1 % (11.0-16.0); White Blood Count 7.7 X10*3/uL (4.8-10.8)
[2024-08-11 09:26] LABS: Alanine Aminotransferase 31 U/L (0-31); Albumin Level 4.3 g/dL (3.5-5.0); Alkaline Phosphatase 96 U/L (39-117); Anion Gap 8 (12-20); Aspartate Amino Transferase 26 U/L (5-31); Bilirubin Total 0.5 mg/dL (0.0-1.0); Blood Urea Nitrogen 13 mg/dL (9-16); Calcium 9.5 mg/dL (8.4-10.2); Carbon Dioxide 28 mmol/L (22-29); Chloride 109 mmol/L (96-108); Cholesterol 223 mg/dL (<200); Estimated Glomerular Filt Rate > 60; Glucose Fasting 94 mg/dL (60-99); HDL Cholesterol 53 mg/dL (>40); LDL Cholesterol Calculated 152 mg/dL (<100); Sodium 141 mmol/L (135-145); Total Protein 7.2 g/dL (6.5-8.0); Triglycerides 94 mg/dL (<150)
[2024-08-11 09:49] LABS: Thyroid Stimulating Hormone 0.99 uIU/mL (0.32-4.0)
== END 2024-08-11 08:11 | disposition home or self-care (01) ==
LOC: HO.LAB 08:10
PROVIDERS: PCP Internal Medicine; Visit Provider Internal Medicine
DX: Z13.0 Encounter for screening for diseases of the blood and blood-forming organs and certain disorders involving the immune mechanism (principal); Z13.9 Encounter for screening, unspecified; Z13.220 Encounter for screening for lipoid disorders; Z13.29 Encounter for screening for other suspected endocrine disorder
CPT/HCPCS: 36415; 80053; 80061; 84443; 85025

== ENCOUNTER 2024-09-11 11:02 | Outpatient (AMB) | payer OTHER, SELFPAY ==
--- NOTE | 2024-09-11 11:12 | A.OFFPC_ITS ---
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 Accompanied by: Self / Same As Patient Allergies IV MED FOR VOMITING Allergy (Unknown, Uncoded 09/11/24 11:18) unknown Medication List - Last Reconciled 09/12/24 by Jose Alberto Dumas MD cyclobenzaprine 10 mg PO TID PRN dexamethasone 4 mg PO BID ibuprofen 400 mg PO Q8H PRN Tobacco use date assessed: 08/05/24 Dental Screening Dental Screen Date: 08/05/24 HPI vertigo/back pain HPI Details chronic dorsal apine pain; no injuries or falls PFSH Medical History JESSE III (cervical intraepithelial neoplasia grade III) with severe dysplasia Abscess of buttock Abdominal pain GERD (gastroesophageal reflux disease) Constipation Nausea Vertigo HPV (human papilloma virus) anogenital infection Colon polyps Surgical History Hx of colonoscopy History of tubal ligation H/O LEEP History of surgery History of cholecystectomy History of appendectomy Family History Mother Colon cancer Maternal Grandfather No problems noted. 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 Mateo Menendez, Marie Engle, Leonardo Christiansen and colleagues, with an educational tatum from [employer] Review of Systems Const Denies chills, Denies headache(s) and Denies weight loss ENT Denies headache(s) Card Denies chest pain, Denies syncope, Denies irregular heart rhythm and Denies dyspnea Resp Denies chest congestion, Denies cough and Denies dyspnea GI Denies abdominal pain, Denies change in stool character, Denies nausea and Denies vomiting Musc Denies deformity and Denies joint swelling Neuro Denies syncope and Denies headache(s) Physical exam (Primary Care) Vital Signs: Last Vital Signs Temp 96.9 F 09/11/24 11:14 Pulse 74 09/11/24 11:14 BP 138/90 H 09/11/24 11:14 BMI result Body Mass Index 25.0 Tobacco/Smoking Status: Tobacco use Status Tobacco use date assessed 08/05/24 09/11/24 11:12 Patient Tobacco Use Status Never used Tobacco 09/11/24 11:12 Tobacco use type Cigarette 09/11/24 11:12 e-Cigarette/Vaping Use Never Used 09/11/24 11:12 Thrive Assessment: Date of Thrive Assessment Date Thrive assessed 08/05/24 09/11/24 11:12 Const General: cooperative, comfortable, no acute distress and alert Neck Neck: Yes no lymphadenopathy Thyroid: Thyroid normal Resp Effort & Inspection: normal respiratory effort Auscultation: clear to auscultation bilaterally Percussion: percussion normal Cardio Jugular venous distension: no JVD Palpation: normal PMI Rate: regular rate Rhythm: regular rhythm Heart sounds: S1 normal heart sound present and S2 normal heart sound present GI Inspection: Yes normal to inspection Palpation (GI): No hepatosplenomegaly present Skin General skin exam: no rashes or lesions noted Extrem General: Yes no clubbing, cyanosis or edema Coding Level of Care Code Est Pt Level 3 (32743) Diagnoses Upper back pain M54.9 Assessment & Plan Assessment & Plan (1) Upper back pain: Code(s): M54.9 - Dorsalgia, unspecified Plan: xr ordered Orders: Orders XR thoracic spine 2V 09/11/24 M54.9 - Dorsalgia, unspecified
[2024-09-11 11:14] VITALS: BP 138/90; PULSE 74; TEMP 36.1; BMI 25.0
--- OUTSIDE RECORDS SUMMARY | 2024-09-11 11:44 | XMS_ITS | Data Portability ---
Author Organization [facility], [facility] Address [address] [place] [address] Care Team Providers Care Clinical Laboratory Aide Name Role Phone COLLEEN ZARCO Primary Care Provider [phone] Assessment Encounter Date Assessment Date Assessment LastModified by Organization Details LastModified Time 06/11/2018 06/11/2018 I will obtain chest x-ray and ultrasound of the abdomen and pelvis. Will obtain MRI of the brain, blood work to include amylase and lipase, and urine testing. Will re-evaluate her next week, sooner if needed. She was advised to try Tylenol or Aleve/Advil, etc., for now. May use omeprazole [id number] for the stomach pending results. RTC in 1week. choco Not available 06/14/2018 12:35:25 06/18/2018 06/18/2018 Dr. Zarco offered her different interventions for the numbness and discomfort in the left thoracic and scapular region such as ultrasound-guided cortisone injections, chiropractic adjustment and physical therapy. She notes that she wants to think about it and then get back to us. Also recommended that she have the MRI of the brain when she is able to afford this for the ongoing headaches and dizziness, but also recommended that she try to keep a snack on hand as it does seem to improve if she eats. 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 For the left upper quadrant pain that is chronic along with constipation, recommended to put prune juice in the microwave to see if that will allow her to go to the bathroom. If not, we could in the future prescribe a medication for the constipation. She will get her records from her primary care at [place], as she will be there this week and to find out when her last colonoscopy was. [email or web address] Not available 06/24/2018 15:40:14 Plan of Treatment Reminders Order Date Submit Date Provider Last Modified By Organization Details Last Modified Time Details Appointments None record ed. Lab None record ed. Referral None record ed. Procedures None record ed. Surgeries None record ed. Imaging None record ed. Medication Orders None record ed. Patient TargetsNo targets recorded. Patient Instructions Encounter Date Encounter Id Patient Instructions Last Modified By Organization Details Last Modified Time 06/11/2018 [id number] Not available 06/12/2018 09:39:50 06/18/2018 [id number] Not available 06/19/2018 08:26:08 Reason for Referral None Reported. Results Created Date Observation Date Name Description Value Unit Range Abnormal Flag Note LastModifiedBy Organization Detail LastModifiedTime 06/14/20 18 06/13/2018 US, pelvi s, compl ete No observ ation record ed. [facility] [address], [place], [address], 06/18/2018 16:35:06 06/14/20 18 06/13/2018 XR, chest No observ ation record ed. [facility] [address], [place], [address], 06/18/2018 16:35:06 06/14/20 18 06/13/2018 US, abdom en No observ ation record ed. [facility] [address], [place], [address], 06/18/2018 16:35:06 Result Notes None recorded. Problems Name Problem SNOMED Code Status Onset Date Resolution Date Notes Provider Name and Address Organization Details Recorded Time Thoracic back pain 550368104 Active 2017 COLLEEN silverman [facility] 8 12:31:46 Elevated blood-pressure reading without diagnosis of hypertension 131656211 Active 2017 COLLEEN silverman [facility] 8 12:31:47 Problem Notes None recorded. Procedures Surgical History Date Name Laterality Status Provider Name and Address Organization Details Recorded Time Cholecystectomy completed [facility] 06/11/2018 16:13:54 Ovarian Cystectomy completed [facility] 06/11/2018 16:14:22 Tonsillectomy completed [facility] 06/11/2018 16:14:34 Tubal Ligation completed [facility] 06/11/2018 16:14:43 Imaging Results Imaging Date Name Status LastModified by Organiz ation Details LastModified Time 06/13/2018 US, pelvis, complete completed [facility] [address], [place], [address], 06/18/2018 16:35:06 06/13/2018 XR, chest completed [facility] [address], [place], [address], 06/18/2018 16:35:06 06/13/2018 US, abdomen completed [facility] [address], [place], [address], 06/18/2018 16:35:06 Procedure Notes None recorded. Medical Equipment None Reported. Allergies No known drug allergies Medications Name Sig Start Date Stop Date Status Note LastModified by Organization Details LastModified Time naproxen 500 mg tablet 2017 completed Not Available Not Available Not Available Vitals Date Recorded Body height Body mass index (BMI) Body weight Heart rate Oxygen saturation Oxygen saturation in Arterial blood by Pulse oximetry Systolic blood pressure Diastolic blood pressure Provider Name and Address Organization Details Last Updated DateTime 8 157.48 cm 27.7 kg/m2 10857.8 8 g 72 /min 97 % 97 % 172 mm[Hg] 100 mm[Hg] [facility] 8 16:09:13 Date Recorded Body height Body mass index (BMI) Body weight Heart rate Oxygen saturation Oxygen saturation in Arterial blood by Pulse oximetry Systolic blood pressure Diastolic blood pressure Provider Name and Address Organization Details Last Updated DateTime 8 157.48 cm 27.4 kg/m2 55550.1 4 g 60 /min 98 % 98 % 120 mm[Hg] 80 mm[Hg] Lalita Roche [facility] 8 16:03:11 Social History Question Answer Notes LastModified by Organizat ion Details LastModified Time Tobacco Smoking Status Former Smoker LARISA HERRERA andra, [facility] 06/11/2018 16:13:10 What Is Your Level Of Alcohol Consumption? None Information not available 06/11/2018 What Is Your Level Of Caffeine Consumption? Moderate Information not available 06/11/2018 What Is Your Occupation? [email or web address] Information not available 06/11/2018 How Many Days In The Past Year Have You Had A Heavy Drinking Consumption (4+ Female, 5+ Male)? 0 Information not available 06/11/2018 Live Alone Or With Others? With Others Information not available 06/11/2018 What Was The Date Of Your Most Recent Tobacco Screening? 06/18/2018 Information not available 02/19/2019 Performs Monthly Self-breast Exam? No Information not available 06/11/2018 Seat Belts Used Routinely Yes Information not available 06/11/2018 At What Age Did You Start Smoking Tobacco? 21 Quit At Age 25 Information not available 06/11/2018 Do You Use Sunscreen Routinely? No Information not available 06/11/2018 How Many Years Have You Smoked Tobacco? 4 Information not available 06/11/2018 Sex: Unknown Functional Status Question Answer Note LastModified by Organization D etails LastModified Time Are you able to care for yourself? Yes Information n ot available 06/11/2018 Mental Status None recorded. Family History Relationship Description Onset Age of this Age Resolved Age Notes LastModified by Organization Details LastModified Time Mother Hyperlipidem ia 40 Not available 2017 16:11:28 Mother Heart disease Not available 2017 16:11:37 Mother Family history of cancer of colon Not available 2017 16:12:08 Mother Family history of stroke Not available 2017 16:12:31 Mother Hypertensive disorder Not available 2017 16:12:42 Maternal Grandfather Family history of cancer of colon Not available 2017 16:12:08 Maternal Aunt Family history of Stomach cancer Not available 2017 16:12:20 Medical History No medical history recorded. Gynecological History Statement/Question Response Last Pap Smear 2016 Mammogram 2016 Colonoscopy 2013 -2014 Breast exam 2016 DEXA scan never Obstetrics History GPAL:G 0 P 0 0 0 0 Immunizations Vaccine Type Date Status Note Provider Nam e and Address Organization Details Recorded Time tetanus toxoid, unspecified formulation 6 completed [facility] 06/11/2018 16:11:15 Influenza, split virus, quadrivalent, preservative 8 completed Not Available [facility] 08/30/2019 02:14:53 Past Encounters Encounter ID Performer Location Encounter Start Date Encounter Closed Date Diagnosis/Indication Diagnosis SNOMED-CT Code Diagnosis ICD10 Code Diagnosis Note [id number] [facility] Main Office [address] [place] [address] [id number] 06/11/2018 15:43:54 06/12/2018 09:16:13 Headache 39946096 R51 Dizziness 680640876 R42 Abdominal pain 98947255 R10.9 Thoracic back pain 74985 8004 M54.6 Left side Elevated blood-pressure reading without diagnosis of hypertension 441586126 R03.0 [id number] [facility] Main Office [address] [place] [address] [phone] 06/18/2018 15:58:13 06/19/2018 08:05:13 Postmenopausal bleeding 14217094 N95.0 Left upper quadrant pain 005654597 R10.12 Headache 44480868 R51 Dizziness 138369072 R42 Pain in pelvis 94448872 R10.2 Chronic constipation 236 330233 K59.09 Health Concerns Section Related Observation LastModified by Organization Detai ls LastModified Time None Recorded Concern Status LastModified by Organization Details LastModified Time None Recorded Advance Directives Directive None Recorded Payers Encounter Date Sequence Insurance Name Policy Number Policy Renteria Covered Member ID Renteria Member ID Guarantor Name 06/11/2018 1 [facility] [id number] Jenny Ledbetter [id number] Jenny Ledbetter 06/18/2018 1 [facility] [id number] Jenny Ledbetter [id number] Jenny Ledbetter Notes Date Note Type Note Provider Name and Address Organization Details Recorded Time 06/11/2018 text/html The patient is h ere to establish. She has been having worsening headache mainly in the frontal area and a dizzy feeling with any movement going on for a few weeks. In addition, she has left thoracic area pain with a numb feeling across the ribcage on the left side going on for 2 months. The patient has also been having lower abdominal pain and left sided abdominal pain, vague in nature, for the past couple of months as well. The patient had been healthy prior to that. The last physical she had was 2 or 3 years ago in [place]. She moved to [place] 9 months ago. The patient does not take any medicine whatsoever. She has never had dizziness before. Her headache used to be mild. Denies visual complaints. Denies toothache. Denies fever. She is tired and fatigued as well. She feels nauseated and has intermittent epigastric pain. [facility] 12:35:30 06/18/2018 text/html Jenny is here to review lab results and imaging and to discuss her multiple complaints from last visit including left upper quadrant pain, left lower quadrant abdominal pain and upper back discomfort and headaches. She unfortunately did not have the MRI of the brain, as it was too expensive. However, she does continue to get headaches and dizziness primarily in the morning, which then will resolve on its own, but can return later. 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 She notes she has the pain and discomfort along with numbness in the left scapular region. It does not radiate. She also has a history of chronic constipation and at times will not have a bowel movement for four to five days. She is taking many things [id number] with no improvement in her symptoms. At first, coffee used to allow her to have a bowel movement, but now no longer does. She had a colonoscopy a few years ago, but does not know when she is due to have another one. She is flying to [place] tomorrow. She does have a family history of colon cancer with her mother passing at the age of 67 from colon cancer and grandfather also had this. The lab results were all normal except there was 3+ blood noted in the urine. No culture required. She notes her last menstrual cycle was at the age of 45 and she has not had one until when she had her blood work drawn. She had brown bleeding then followed by bright red bleeding for three days. This has never occurred before. No family history of female cancers. She also was found on pelvic ultrasound to have simple cysts in bilateral ovaries. She has a history of this. She denies any recent sexual intercourse. The abdominal ultrasound was normal and chest x-ray normal. COLLEEN silverman [place] [facility] 06/24/2018 15:40:51 OBGyn Episode No OBEpisode recorded.
--- OUTSIDE RECORDS SUMMARY | 2024-09-11 11:44 | XMS_ITS | Patient Health Record ---
Author Organization [facility] Address [address] [place] [address] Care Team Providers Care Water Pollution Control Inspector Name Role Phone Gibran Fontenot MD Primary Care Provider Mateo Cordero Unavailable [phone] ALLERGIES Allergen (clinical drug ingredient) Drug/Non Drug Allergy documented on EMR Reaction Allergy Type Onset Date Status Penicillin Unknown Drug Allergy Active REASON FOR REFERRAL No Information MEDICATIONS Medication SIG (Take, Route, Frequency, Duration) Notes Start Date End Date Status Colyte w Flavor Packs 240 GM as directed Orally as directed for 1 day(s) 08/05/2015 Active SOCIAL HISTORY Sex Assigned At : Social History Observation Description Sex Assigned At Unknown PROBLEMS Problem Type ICD Code Onset Dates Problem Status W/U Status Risk SNOMED Code Notes Problem Encounter for screening for malignant neoplasm of colon (Z12.11) Active confirmed 409035843 Problem History of adenomatous polyp of colon (Z86.010) Active confirmed 051191214 Problem Encounter for screening for malignant neoplasm of rectum (Z12.12) Active confirmed Screening fo r malignant neoplasm of rectum (495779540) Problem Family history of colon cancer (Z80.0) Active confirmed 375815479 Problem Constipation, unspecified constipation type (K59.00) Active confirmed 76480365 PLAN OF TREATMENT Pending Test Test Name Order Date GI BIOPSY 09/30/2015 Future Test Test Name Order Date COLONOSCOPY 08/05/2015 Insurance Providers Payer Name Payer Address Payer Phone Subscriber Number Group Number Insured Name Patient Relationship to Insured Coverage Start Date Coverage End Date [facility] [employer] [facility] [address] [address] [place], [place] [id number] JOSSELINE LARIOS Self - patient is the insured MEDICAL (GENERAL) HISTORY Medical History History ICD Code Colonoscopy [id number]--hyperplastic polyp s, int/ext hemorrhoids 2 tubular adenomas removed in 2004 Denies ID,DM,CVA,Lung disease,renal dise ase Treated for H.pylori in 06/2015--had a + serology Surgical History Surgery Date(Month/Year) cholecystectomy appendectomy tubal ligation
== END 2024-09-11 11:43 | disposition home or self-care (01) ==
PROVIDERS: PCP Internal Medicine; Visit Provider Internal Medicine
DX: M54.9 Dorsalgia, unspecified (principal)

== ENCOUNTER → 2024-09-11 11:02 | Outpatient (BNVA) | payer OTHER, SELFPAY | PROVIDERS: PCP Internal Medicine; Visit Provider Internal Medicine | DX: M54.9 Dorsalgia, unspecified (principal) | CPT/HCPCS: 99212 ==

== ENCOUNTER 2024-10-21 14:23 | Outpatient (REF) | payer OTHER, SELFPAY ==
--- NOTE | ~2024-10-21 | XR_ITS ---
EXAMINATION: XR THORACIC SPINE CLINICAL INFORMATION: M54.9 - Dorsalgia, unspecified COMPARISON: January 18, 2021 TECHNIQUE: 3 views of the thoracic spine were obtained. FINDINGS: No acute cortical disruption or malalignment. No lytic or blastic lesions. Mild endplate sclerosis and marginal osteophyte formation in the vertebral bodies of the upper and lower thoracic spine. No lytic or blastic lesions. Vascular clips right upper quadrant abdomen. XR/XR thoracic spine 2V IMPRESSION: Mild to moderate multilevel spondylosis. Electronically signed by: Wily Julio MD 10/22/2024 03:18 PM EDT
[2024-10-21 16:33] LABS: Appearance Urine Clear; Color Urine Yellow; Glucose Urine UA Negative (Negative); Leukocyte Esterase Urine Negative (Negative); Nitrite Urine Negative (Negative); Urine Blood Negative (Negative); Urine Ketones Negative (Negative); Urine Protein Negative (Neg-Trace)
== END 2024-10-21 14:24 | disposition home or self-care (01) ==
LOC: HO.XRAY 14:23
PROVIDERS: Absent Provider Internal Medicine; PCP Internal Medicine; Visit Provider Internal Medicine
DX: M54.9 Dorsalgia, unspecified (principal); R39.9 Unspecified symptoms and signs involving the genitourinary system
CPT/HCPCS: 72070; 81003

== ENCOUNTER → 2024-10-21 14:40 | Outpatient (BNV) | payer OTHER, SELFPAY | PROVIDERS: Absent Provider Internal Medicine; PCP Internal Medicine; Visit Provider Radiology Diagnostic Radiology | DX: M47.814 Spondylosis without myelopathy or radiculopathy, thoracic region (principal) | CPT/HCPCS: 72070 ==

== ENCOUNTER 2024-11-10 10:54 | Emergency (ER) | payer OTHER, SELFPAY ==
--- NOTE | ~2024-11-10 | XR_ITS ---
EXAMINATION: XR CHEST CLINICAL INFORMATION: left lower lung/rib pain COMPARISON: 06/16/2022. TECHNIQUE: 2 views of the chest were obtained. FINDINGS: The cardiac, hilar, and mediastinal contours are normal. The lungs are clear bilaterally. There is no pneumothorax or pleural effusion. There is no focal osseous or soft tissue abnormality. There are cholecystectomy clips. XR/XR chest 2V IMPRESSION: Normal chest. Electronically signed by: Mauricio Barnett MD 11/10/2024 12:22 PM EDT
[2024-11-10 11:43] VITALS: BP 129/81; PULSE 65; RESP 19; TEMP 36.6; O2SAT 98; BMI 25.0
--- NOTE | 2024-11-10 11:43 | ED.GENADULT ---
HPI - General Adult General Chief complaint: General Medical Stated complaint: L Side Kidney Pain Time Seen by Provider: 11/10/24 17:05 Related Data Previous Rx's ?Medication ?Instructions ?Recorded ibuprofen 400 mg tablet 400 mg PO Q8H PRN back pain #30 07/27/23 tabs dexamethasone 4 mg tablet 4 mg PO BID #6 tabs 10/10/23 cyclobenzaprine 10 mg tablet 10 mg PO TID PRN muscle spasm #20 11/06/24 tabs meloxicam 15 mg tablet 15 mg PO DAILY #30 tabs 11/06/24 triamcinolone acetonide 0.5 % 1 appl topical TID #15 grams 11/06/24 topical cream Allergies Allergy/AdvReac Type Severity Reaction Status Date / Time IV MED FOR VOMITING Allergy Unknown unknown Uncoded 11/10/24 11:45 PMFSH Past Medical History Medical History JESSE III (cervical intraepithelial neoplasia grade III) with severe dysplasia Abscess of buttock Abdominal pain GERD (gastroesophageal reflux disease) Constipation Nausea Vertigo HPV (human papilloma virus) anogenital infection Colon polyps Surgical History Hx of colonoscopy History of tubal ligation H/O LEEP History of surgery History of cholecystectomy History of appendectomy Family History Family History Mother Colon cancer Maternal Grandfather No problems noted. Father Asthma Brother Lymphoma involving liver Maternal Aunt Breast cancer Social History Social History Household Members: Significant Other Household Members Other:: lives with Housing: Apartment Alcohol intake: never Comment: baseline Patient Tobacco Use Status: Never used Tobacco Tobacco use type: Cigarette e-Cigarette/Vaping Use: Never Used Second Hand Smoke Exposure: No Advance Directives: Yes Advance Directives on File: Yes Advance Directives Date on File: 04/07/21 Do you have a plan to hurt others: No Plan service: No Current occupational status: employed Current occupation: [employer] Sexual orientation: Straight/Heterosexual Gender identity: Female Cognitive needs: No Hearing needs: No Vision needs: Yes Physical Exam ED Vital Signs: Vital Signs - 24 hr 11/10/24 11:43 Temperature 98 F Pulse Rate 65 Respiratory Rate 19 Blood Pressure 129/81 Pulse Oximetry 98 Oxygen Delivery Method Room Air BMI result Body Mass Index 25.0 Course Course Course Narrative: This is a Rapid Medical Examination (RME) performed by Rambo Bailey PA-C in triage. Full HPI, ROS, assessment and treatment plan per primary provider in the Main ED. 11/10/24 1145 JAE Amaral Hx: 59 yo feamle here for eval of left lower lung/back pain intermittent x9 months. has followed up with her pcp for this, had normal thoracic xr 2 weeks ago. also reports blood on toilet paper after bowel movement recently. PE/vitals: well appearing, NAD Plan: screening labs, UA, CXR Reevaluation(s) Reevaluation #1: I went to assess the patient she had left Time: 17:39 Medical Decision Making Medical Decision Making MDM Narrative: I have independently reviewed the following tests: Labs: No leukocytosis, not anemic, no electrolyte abnormality, urine not infected Lab Data 11/10/24 11:59 11/10/24 11:59 Labs: Lab Results 11/10/24 Range/Units 11:59 WBC 8.8 (4.8-10.8) X10*3/uL RBC 4.19 L (4.20-5.50) X10*6/uL Hgb 13.2 (12.0-16.0) g/dl Hct 39.1 (37.0-47.0) % MCV 93.3 (80.0-98.0) fL MCH 31.5 (27.0-33.0) pg MCHC 33.8 (31.0-35.0) g/dl RDW 12.0 (11.0-16.0) % Plt Count 270 (160-400) X10*3/uL MPV 9.2 L (9.4-12.3) fL Immature Gran % (Auto) 0.2 (0.0-0.4) % Neut % (Auto) 50.1 (45-73) % Lymph % (Auto) 40.6 H (20-40) % [place] % (Auto) 7.6 (2-11) % Eos % (Auto) 1.3 (0-4) % Baso % (Auto) 0.2 (0-2) % Lymph # (Auto) 3.6 (1.2-4.9) X10*3/uL [place] # (Auto) 0.7 (0.1-1.2) X10*3/uL Eos # (Auto) 0.1 (0.0-0.4) X10*3/uL Baso # (Auto) 0.0 (0.0-0.2) X10*3/uL Abs Immat Gran (auto) 0.02 (0.00-0.03) X10*3/uL Absolute Neuts (auto) 4.4 (2.0-8.3) x10*3/uL Absolute Nucleated RBC 0.000 (0.0-0.012) X10*3/uL Nucleated RBC % (auto) 0.0 (0.0-0.2) /100WBC Sodium 142 (135-145) mmol/L Potassium 3.9 (3.3-5.1) mmol/L Chloride 107 (96-108) mmol/L Carbon Dioxide 27 (22-29) mmol/L Anion Gap 12 (12-20) BUN 10 (9-16) mg/dL Creatinine 0.69 (0.5-1.4) mg/dL Estim Creat Clear Calc 77.9 Estimated GFR > 60 Random Glucose 93 (60-115) mg/dL Calcium 9.8 (8.4-10.2) mg/dL Total Bilirubin 0.5 (0.0-1.0) mg/dL AST 25 (5-31) U/L ALT 22 (0-31) U/L Alkaline Phosphatase 89 (39-117) U/L Total Protein 7.4 (6.5-8.0) g/dL Albumin 4.4 (3.5-5.0) g/dL Urine Color Yellow Urine Appearance Clear Urine pH 5.5 (5.0-9.0) Ur Specific [place] 1.015 (1.005-1.025) Urine Protein Negative (Neg-Trace) mg/dL Urine Glucose (UA) Negative (Negative) mg/dL Urine Ketones Negative (Negative) mg/dL Urine Blood Negative (Negative) Urine Nitrite Negative (Negative) Ur Leukocyte Esterase Negative (Negative) Discharge Plan Discharge Clinical Impression: Chronic left flank pain Patient Disposition: Left W/O Completing Treatment Prescriptions: No Action meloxicam 15 mg tablet 15 mg PO DAILY Qty: 30 3RF cyclobenzaprine 10 mg tablet 10 mg PO TID PRN (Reason: muscle spasm) Qty: 20 0RF triamcinolone acetonide 0.5 % cream 1 appl topical TID Qty: 15 8RF dexamethasone 4 mg tablet 4 mg PO BID Qty: 6 0RF ibuprofen 400 mg tablet 400 mg PO Q8H PRN (Reason: back pain) Qty: 30 0RF Rx Instructions: take with food Discharge Date/Time: 11/10/24 18:38
[2024-11-10 12:04] LABS: MANUAL DIFF FLAG NO
[2024-11-10 12:05] LABS: Basophils Percent Auto 0.2 % (0-2); Eosinophils Absolute Auto 0.1 X10*3/uL (0.0-0.4); Eosinophils Percent Auto 1.3 % (0-4); Hematocrit 39.1 % (37.0-47.0); Hemoglobin 13.2 g/dl (12.0-16.0); Imm Gran Abs Auto 0.02 X10*3/uL (0.00-0.03); Imm Gran Pct Auto 0.2 % (0.0-0.4); Lymphocytes Absolute Auto 3.6 X10*3/uL (1.2-4.9); Lymphocytes Percent Auto 40.6 % (20-40); Mean Corpuscular HGB Conc 33.8 g/dl (31.0-35.0); Mean Corpuscular Hemoglobin 31.5 pg (27.0-33.0); Mean Corpuscular Volume 93.3 fL (80.0-98.0); Mean Platelet Volume 9.2 fL (9.4-12.3); Monocytes Absolute Auto 0.7 X10*3/uL (0.1-1.2); Monocytes Percent Auto 7.6 % (2-11); Neutrophils Absolute Auto 4.4 x10*3/uL (2.0-8.3); Neutrophils Percent Auto 50.1 % (45-73); Platelet Count 270 X10*3/uL (160-400); Red Blood Count 4.19 X10*6/uL (4.20-5.50); White Blood Count 8.8 X10*3/uL (4.8-10.8)
[2024-11-10 12:06] LABS: Appearance Urine Clear; Color Urine Yellow; Glucose Urine UA Negative (Negative); Leukocyte Esterase Urine Negative (Negative); Nitrite Urine Negative (Negative); PH 5.5 (5.0-9.0); Specific Gravity - Urine 1.015 (1.005-1.025); Urine Blood Negative (Negative); Urine Ketones Negative (Negative); Urine Protein Negative (Neg-Trace)
[2024-11-10 12:29] LABS: Alanine Aminotransferase 22 U/L (0-31); Albumin Level 4.4 g/dL (3.5-5.0); Anion Gap 12 (12-20); Aspartate Amino Transferase 25 U/L (5-31); Bilirubin Total 0.5 mg/dL (0.0-1.0); Blood Urea Nitrogen 10 mg/dL (9-16); Calcium 9.8 mg/dL (8.4-10.2); Carbon Dioxide 27 mmol/L (22-29); Chloride 107 mmol/L (96-108); Creatinine Clr Calc Pharmacy 77.9; Estimated Glomerular Filt Rate > 60; Glucose Random 93 mg/dL (60-115); Potassium 3.9 mmol/L (3.3-5.1); Sodium 142 mmol/L (135-145); Total Protein 7.4 g/dL (6.5-8.0)
[2024-11-10 12:31] LABS: Alkaline Phosphatase 89 U/L (39-117)
--- OUTSIDE RECORDS SUMMARY | 2024-11-10 15:40 | XMS_ITS | Patient Health Record ---
Author Organization [facility] Address [address] [place] [address] Care Team Providers Care Restaurant Cook Name Role Phone Gibran Fontenot MD Primary Care Provider Mateo Cordero Unavailable [phone] Allergies Allergen (clinical drug ingredient) Drug/Non Drug Allergy documented on EMR Reaction Allergy Type Onset Date Status Penicillin Unknown Drug Allergy Active Reason For Referral No Information Medications Medication SIG (Take, Route, Frequency, Duration) Notes Start Date End Date Status Colyte w Flavor Packs 240 GM as directed Orally as directed for 1 day(s) 08/05/2015 Active Problems Problem Type SNOMED Code ICD Code Onset Dates Problem Status W/U Status Risk Notes Problem 826870217 Encounter for screening for malignant neoplasm of colon (Z12.11) Active confirmed Problem 783282187 History of adenomatous polyp of colon (Z86.010) Active confirmed Problem Screening for malignant neoplasm of rectum (964650847) Encounter for screening for malignant neoplasm of rectum (Z12.12) Active confirmed Problem 546213162 Family history o f colon cancer (Z80.0) Active confirmed Problem 77840829 Constipation, unspecified constipation type (K59.00) Active confirmed Plan Of Treatment Pending Test Test Name Order Date GI BIOPSY 09/30/2015 Future Test Test Name Order Date COLONOSCOPY 08/05/2015 Insurance Providers Payer Name Payer Address Payer Phone Subscriber Number Group Number Insured Name Patient Relationship to Insured Coverage Start Date Coverage End Date [facility] [address] [address] [place], [place] [id number] JOSSELINE LARIOS Self - patient is the insured Medical (General) History Medical History History ICD Code Colonoscopy 12-05-2010--hyperplastic polyp s, int/ext hemorrhoids 2 tubular adenomas removed in 2004 Denies CA,DM,CVA,Lung disease,renal dise ase Treated for H.pylori in 06/2015--had a + serology Surgical History Surgery Date(Month/Year) cholecystectomy appendectomy tubal ligation
--- OUTSIDE RECORDS SUMMARY | 2024-11-10 15:40 | XMS_ITS | Data Portability ---
Author Organization [facility], [facility] Address [address] [place] [address] Care Team Providers Care Manager Book Name Role Phone COLLEEN ZARCO Primary Care Provider Assessment Encounter Date Assessment Date Assessment LastModified [...] Aleve/Advil, etc., for now. May use omeprazole [id number] for the stomach pending results. RTC in [...] to improve if she eats. Referred to [facility] for her postmenopausal bleeding. For the left upper quadrant pain that is chronic along with constipation, recommended to put prune juice in the microwave to see if that will allow her to go to the bathroom. If not, we could in the future prescribe a medication for the constipation. She will get her records from her primary care at [place], as she will be there this week [...] By Organization Details Last Modified Time 06/11/2018 [id number] Not available 06/12/2018 09:39:50 06/18/2018 [id number] Not available 06/19/2018 08:26:08 Reason for Referral None Reported. Results Created Date Observation Date Name Description Value Unit Range Abnormal Flag Note LastModifiedBy Organization Detail LastModifiedTime 06/14/20 18 06/13/2018 US, pelvi s, compl ete No observ ation record ed. [facility] [address], [place], [address], 06/18/2018 16:35:06 06/14/20 18 06/13/2018 XR, chest No observ ation record ed. [facility] [address], [place], [address], 06/18/2018 16:35:06 06/14/20 18 06/13/2018 US, abdom en No observ ation record ed. [facility] [address], [place], [address], 06/18/2018 16:35:06 Result Notes None recorded. Problems Name Problem SNOMED Code Status Onset Date Resolution Date Notes Provider Name and Address Organization Details Recorded Time Thoracic back pain 175459671 Active 2017 COLLEEN silverman [facility] 8 12:31:46 Elevated blood-pressure reading without diagnosis of hypertension 417520730 Active 2017 COLLEEN silverman [facility] 8 12:31:47 Problem Notes None recorded. Procedures Surgical History Date Name Laterality Status Provider Name and Address Organization Details Recorded Time Cholecystectomy completed [facility] 06/11/2018 16:13:54 Ovarian Cystectomy completed [facility] 06/11/2018 16:14:22 Tonsillectomy completed [facility] 06/11/2018 16:14:34 Tubal Ligation completed [facility] 06/11/2018 16:14:43 Imaging Results Imaging Date Name Status LastModified by Organiz ation Details LastModified Time 06/13/2018 US, pelvis, complete completed [facility] [address], [place], [address], 06/18/2018 16:35:06 06/13/2018 XR, chest completed [facility] [address], [place], [address], 06/18/2018 16:35:06 06/13/2018 US, abdomen completed [facility] [address], [place], [address], 06/18/2018 16:35:06 Procedure Notes None recorded. Medical [...] Updated DateTime 8 157.48 cm 27.7 kg/m2 57539.8 8 g 72 /min 97 % 97 % 172 mm[Hg] 100 mm[Hg] [facility] 8 16:09:13 Date Recorded Body height Body mass index (BMI) Body weight Heart rate Oxygen saturation Oxygen saturation in Arterial blood by Pulse oximetry Systolic blood pressure Diastolic blood pressure Provider Name and Address Organization Details Last Updated DateTime 8 157.48 cm 27.4 kg/m2 79133.1 4 g 60 /min 98 % 98 % 120 mm[Hg] 80 mm[Hg] Lalita Roche [facility] 8 16:03:11 Social History Question Answer Notes LastModified by Organizat ion Details LastModified Time Tobacco Smoking Status Former Smoker ALRISA HERRERA andra, [facility] 06/11/2018 16:13:10 What Is Your Level Of [...] toxoid, unspecified formulation 6 completed LARISA HERRERA [facility] 06/11/2018 16:11:15 Influenza, split virus, quadrivalent, preservative 8 completed Not Available [facility] 08/30/2019 02:14:53 Past Encounters Encounter ID Performer Location Encounter Start Date Encounter Closed Date Diagnosis/Indication Diagnosis SNOMED-CT Code Diagnosis ICD10 Code Diagnosis Note [id number] [facility] Main Office [address] [place] [phone] 06/11/2018 15:43:54 06/12/2018 09:16:13 Headache 23508163 R51 Dizziness 570144792 R42 Abdominal pain 60992211 R10.9 Thoracic back pain 46881 8004 M54.6 Left side Elevated blood-pressure reading without diagnosis of hypertension 116886195 R03.0 [id number] [facility] Main Office [address] [place] [address] [phone] 06/18/2018 15:58:13 06/19/2018 08:05:13 Postmenopausal bleeding 34433987 N95.0 Left upper quadrant pain 138649627 R10.12 Headache 88409469 R51 Dizziness 723336716 R42 Pain in pelvis 35115489 R10.2 Chronic constipation 236 529599 K59.09 Health Concerns Section Related Observation LastModified by Organization Detai ls LastModified Time None Recorded Concern Status LastModified by Organization Details LastModified Time None Recorded Advance Directives Directive None Recorded Payers Encounter Date Sequence Insurance Name Policy Number Policy Renteria Covered Member ID Renteria Member ID Guarantor Name 06/11/2018 1 [facility] [id number] Jenny Ledbetter [id number] Jenny Ledbetter 06/18/2018 1 [facility] [id number] Jenny Ledbetter [id number] Jenny Ledbetter Notes Date Note Type Note [...] was 2 or 3 years ago in [place]. She moved to [place] 9 months ago. The patient does not take any medicine whatsoever. She has never had dizziness before. Her headache used to be mild. Denies visual complaints. Denies toothache. Denies fever. She is tired and fatigued as well. She feels nauseated and has intermittent epigastric pain. [facility] 12:35:30 06/18/2018 text/html Jenny is here [...] five days. She is taking many things [id number] with no improvement in her symptoms. At first, coffee used to allow her to have a bowel movement, but now no longer does. She had a colonoscopy a few years ago, but does not know when she is due to have another one. She is flying to [place] tomorrow. She does have a family history [...] normal and chest x-ray normal. COLLEEN silverman [place] [facility] 06/24/2018 15:40:51 OBGyn Episode No OBEpisode recorded.
== END 2024-11-10 18:38 | disposition left against medical advice (07) ==
PROVIDERS: Physician Assistant Medical; Emergency Provider Emergency Medicine
DX: R10.2 Pelvic and perineal pain (principal); R07.81 Pleurodynia; R07.9 Chest pain, unspecified; Z79.899 Other long term (current) drug therapy
CPT/HCPCS: 36415; 71046; 80053; 81003; 85025; 99282; 99283

== ENCOUNTER → 2024-11-10 11:44 | Outpatient (BNV) | payer OTHER, SELFPAY | PROVIDERS: Visit Provider Radiology Diagnostic Radiology | DX: R07.89 Other chest pain (principal) | CPT/HCPCS: 71046 ==

== ENCOUNTER 2024-11-11 16:23 | Outpatient (AMB) | payer OTHER, SELFPAY ==
--- NOTE | 2024-11-11 16:30 | MHC.PC.OV ---
Vital Signs 11/11/24 16:31 Height 5 ft 3.19 in Weight 136 lb 6 oz BMI 24.0 BP 130/100 H Blood Pressure Location Lt brachial Position Sitting Pulse 80 Pulse Source Pulse Oximeter Temp 97.1 F Temp Source Temporal Artery Scan Pulse Oximetry (%) 99 Oxygen Delivery Method Room Air Intake Visit Reasons: constipation, rib pain Tool Crib Lead Required: No Accompanied by: Self / Same As Patient Allergies IV MED FOR VOMITING Allergy (Unknown, Uncoded 11/11/24 16:36) unknown Medication List - Last Reconciled 11/11/24 by KRISTI Serna cyclobenzaprine 10 mg PO TID PRN dexamethasone 4 mg PO BID ibuprofen 400 mg PO Q8H PRN meloxicam 15 mg PO DAILY triamcinolone acetonide 0.5% 1 appl topical TID Tobacco use date assessed: 08/05/24 Dental Screening Dental Screen Date: 08/05/24 HPI constipation, rib pain HPI Details The patient is a 59-year-old female presenting with constipation and abdominal pain. Her constipation is chronic despite soft stool, and is associated with a persistent left-sided abdominal pain radiating to the back, exacerbated by physical activity due to lumbar spondylosis and arthritis. Rectal bleeding has been reported infrequently, attributed to hemorrhoids. Recent evaluations revealed elevated blood pressure, a new finding for the patient. Colonoscopy completed in 2020 negative for colon cancer, surveillance due to family history and will be repeated in 2025. The patient actively manages her diet to include high fiber, is attentive to her GERD triggers, and seeks clarity on appropriate cholesterol-lowering dietary options. Current symptomatic treatments have been minimally effective. [facility] Medical History (Updated 11/15/24 @ 16:31 by KRISTI Serna) Chronic constipation JESSE III (cervical intraepithelial neoplasia grade III) with severe dysplasia Abscess of buttock Abdominal pain GERD (gastroesophageal reflux disease) Constipation Nausea Vertigo HPV (human papilloma virus) anogenital infection Colon polyps Surgical History Hx of colonoscopy History of tubal ligation H/O LEEP History of surgery History of cholecystectomy History of appendectomy Family History Mother Colon cancer Maternal Grandfather No problems noted. Father Asthma Brother Lymphoma involving liver Maternal Aunt Breast cancer Social History Household Members: Significant Other Household Members Other:: lives with BF Housing: Apartment Alcohol intake: never Comment: baseline Patient Tobacco Use Status: Never used Tobacco Tobacco use type: Cigarette e-Cigarette/Vaping Use: Never Used Second Hand Smoke Exposure: No Advance Directives Date on File: 04/07/21 service: No Current occupational status: employed Current occupation: [employer] Sexual orientation: Straight/Heterosexual Gender identity: Female Cognitive needs: No Hearing needs: No Vision needs: Yes Female Reproductive History Menstrual Age of Menarche: 14 Questionnaire Thrive Questionnaire Date Thrive assessed: 08/05/24 ANNAMARIA-7 AMB Questionnaire ANNAMARIA-7 Date ANNAMARIA - 7 assessed: 08/05/24 Source: Developed by Drs. Mateo Menendez, Marie Engle, Leonardo Christiansen and colleagues, with an educational tatum from [employer]. Review of Systems Const Denies headache(s) Eyes Denies loss of vision ENT Denies vertigo, Denies dizziness, Denies headache(s) and Denies sore throat Card Denies chest pain, Denies leg edema and Denies lightheadedness Resp Denies cough and Denies hemoptysis GI Reports abdominal pain, Denies melena, Reports constipation, Reports heartburn (depending on food choice), Denies diarrhea, Denies vomiting and Reports other (ongoing left UQ/rib pain radiating to back-suspected to be musculoskeletal) Denies urinary frequency, Denies dysuria and Denies urinary urgency Musc Reports back pain, Denies arthralgias and Denies joint swelling Neuro Denies vertigo, Denies dizziness, Denies headache(s) and Denies loss of vision Physical exam (Primary Care) Vital Signs: Last Vital Signs Temp 97.1 F 11/11/24 16:31 Pulse 80 11/11/24 16:31 BP 130/100 H 11/11/24 16:31 Pulse Ox 99 11/11/24 16:31 Oxygen Delivery Method Room Air 11/11/24 16:31 BMI result Body Mass Index 24.0 Tobacco/Smoking Status: Tobacco use Status Tobacco use date assessed 08/05/24 11/11/24 16:34 Patient Tobacco Use Status Never used Tobacco 11/11/24 16:34 Tobacco use type Cigarette 11/11/24 16:34 e-Cigarette/Vaping Use Never Used 11/11/24 16:34 Thrive Assessment: Date of Thrive Assessment Date Thrive assessed 08/05/24 11/11/24 16:34 Const General: healthy appearing, no acute distress, alert and awake Nutritional Appearance: well nourished Orientation/consciousness: oriented to person, oriented to place and oriented to time HENMT Ears: external ears normal General nose exam: Normal external nose present Eyes Conjunctivae: conjunctivae normal Sclerae: sclerae normal Pupils: Equal, round and reactive pupils present Neck Neck: Yes no lymphadenopathy and Yes no JVD Thyroid: Thyroid normal Carotids: no bruits Resp Effort & Inspection: normal respiratory effort and not tachypneic Auscultation: no crackles, no rales, no rhonchi and no wheezes Cardio Rate: regular rate Rhythm: regular rhythm Heart sounds: no murmurs and normal S1 and S2 GI Palpation (GI): Soft to palpation, nontender, no hepatomegaly and no splenomegaly Auscultation: normal bowel sounds Back/Spine/Pelvis Thoracic/Lumbar Spine: thoracic spinal tenderness Skin General skin exam: no rashes or lesions noted and dry skin Neuro General: oriented to person, oriented to place and oriented to time Cranial nerves: Yes Equal, round and reactive pupils present Gait exam (Neuro): Normal gait present Extrem Right upper extremity: full ROM Left upper extremity: full ROM Right lower extremity: full ROM; no edema Left lower extremity: full ROM; no edema Psych Mental Status: mental status grossly normal Speech and movement: Normal speech and movement present Affect: normal affect Attitude: cooperative Thought process: Normal thought process present Coding Level of Care Code Est Pt Level 3 (84200) Diagnoses Chronic constipation K59.09 Mid back pain M54.9 Left upper quadrant abdominal pain R10.12 Abdominal location: left upper quadrant Chronic GERD K21.9 Time Spent (min) 34 Assessment & Plan Assessment & Plan (1) Chronic constipation: Comment: Colace 200 mg, MiraLax q.h.s. Code(s): K59.09 - Other constipation Category: Medical (2) Mid back pain: Code(s): M54.9 - Dorsalgia, unspecified Category: Medical (3) Abdominal pain: Code(s): R10.9 - Unspecified abdominal pain Category: Medical Qualifiers: Abdominal location: left upper quadrant Qualified Code(s): R10.12 - Left upper quadrant pain (4) Chronic GERD: Code(s): K21.9 - Gastro-esophageal reflux disease without esophagitis Category: Medical Plan I will begin low-dose Linaclotide Linzess) to address the patient's constipation, with a plan for monitoring its effectiveness and tolerability. KUB XR ordered to futher evaluate. Labs that were not completed in awhile were ordered to further evaluate the holistic health and to assist with decision making on upcoming appt. The patient will continue with famotidine for GERD management, and I will review dietary practices to help manage triggers. The patient's blood pressure will be reassessed at the next visit to determine if interventions are needed. Dietary modification, focusing on reducing cholesterol intake, will be emphasized to address hyperlipidemia. Continue current pain management strategies for lumbar spondylosis and osteoarthritis will be considered, discussing physical therapy as an option should symptoms persist. Patient was informed and verbally consented to the use of an ambient scribe for clinic note documentation during this visit. Orders: Orders TSH reflex Free T4 11/13/24 E78.00 - Pure hypercholesterolemia, unspecified XR KUB 11/11/24 K59.09 - Other constipation Lipid Panel 11/13/24 E78.00 - Pure hypercholesterolemia, unspecified Vitamin D 25-OH Total 11/13/24 E78.00 - Pure hypercholesterolemia, unspecified Glucose Fasting 11/13/24 E78.00 - Pure hypercholesterolemia, unspecified Medications: New linaclotide (Linzess) 72 mcg PO DAILY 30 caps 1RF K59.09 - Other constipation Refilled famotidine (Pepcid) 20 mg PO DAILY PRN 30 tabs 3RF abdominal discomfort Patient Instructions: - Start taking Linaclotide as prescribed, 30 minutes before meals. - Continue famotidine for GERD management; avoid known dietary triggers. - Monitor blood pressure at home and report any high readings. - Follow dietary recommendations for cholesterol management, reducing intake of fatty meats and high-cholesterol foods. - Schedule and complete the lipid panel and abdominal x-ray as soon as possible. - Increase physical activity as tolerated and explore pain management options if needed. - If new symptoms occur or existing ones worsen, contact the office promptly.
[2024-11-11 16:31] VITALS: BP 130/100; PULSE 80; TEMP 36.2; O2SAT 99; BMI 24.0
--- OUTSIDE RECORDS SUMMARY | 2024-11-11 18:59 | XMS_ITS | Patient Health Record ---
Author Organization [facility] Address [address] [place] [address] Care Team Providers Care Side Gluer Name Role Phone Gibran Fontenot MD Primary Care Provider Mateo Cordero Unavailable [phone] Allergies Allergen (clinical drug ingredient) Drug/Non Drug [...] Problem Status W/U Status Risk Notes Problem 538936058 Encounter for screening for malignant neoplasm of colon (Z12.11) Active confirmed Problem 452370099 History of adenomatous polyp of colon (Z86.010) Active confirmed Problem Screening for malignant neoplasm of rectum (701917796) Encounter for screening for malignant neoplasm of rectum (Z12.12) Active confirmed Problem 923761608 Family history o f colon cancer (Z80.0) Active confirmed Problem 07882219 Constipation, unspecified constipation type (K59.00) Active confirmed Plan Of Treatment Pending Test Test Name Order Date GI BIOPSY 09/30/2015 Future Test Test Name Order Date COLONOSCOPY 08/05/2015 Insurance Providers Payer Name Payer Address Payer Phone Subscriber Number Group Number Insured Name Patient Relationship to Insured Coverage Start Date Coverage End Date [facility] [employer] [facility] [address] [address] [place], [place] [id number] JOSSELINE LARIOS Self - patient is the insured Medical (General) History Medical History History ICD Code Colonoscopy 12-05-2010--hyperplastic polyp s, int/ext hemorrhoids 2 tubular adenomas removed in 2004 Denies [place],DM,CVA,Lung disease,renal dise ase Treated for H.pylori in 06/2015--had a + serology Surgical History Surgery Date(Month/Year) cholecystectomy appendectomy tubal ligation
--- OUTSIDE RECORDS SUMMARY | 2024-11-11 18:59 | XMS_ITS | Data Portability ---
Author Organization [facility], [facility] Address [address] [place] [address] Care Team Providers Care Butt Sawyer Name Role Phone COLLEEN ZARCO Primary Care Provider [phone] Assessment Encounter Date Assessment Date Assessment LastModified [...] Aleve/Advil, etc., for now. May use omeprazole [id number] for the stomach pending results. RTC in [...] to improve if she eats. Referred to [facility] for her postmenopausal bleeding. For the left upper quadrant pain that is chronic along with constipation, recommended to put prune juice in the microwave to see if that will allow her to go to the bathroom. If not, we could in the future prescribe a medication for the constipation. She will get her records from her primary care at [place], as she will be there this week [...] By Organization Details Last Modified Time 06/11/2018 [id number] Not available 06/12/2018 09:39:50 06/18/2018 [id number] Not available 06/19/2018 08:26:08 Reason for Referral None Reported. Results Created Date Observation Date Name Description Value Unit Range Abnormal Flag Note LastModifiedBy Organization Detail LastModifiedTime 06/14/20 18 06/13/2018 US, pelvi s, compl ete No observ ation record ed. [facility] [address], [place], [address], 06/18/2018 16:35:06 06/14/20 18 06/13/2018 XR, chest No observ ation record ed. [facility] [address], [place], [address], 06/18/2018 16:35:06 06/14/20 18 06/13/2018 US, abdom en No observ ation record ed. [facility] [address], [place], [address], 06/18/2018 16:35:06 Result Notes None recorded. Problems Name Problem SNOMED Code Status Onset Date Resolution Date Notes Provider Name and Address Organization Details Recorded Time Thoracic back pain 264144661 Active 2017 COLLEEN silverman [facility] 8 12:31:46 Elevated blood-pressure reading without diagnosis of hypertension 984826213 Active 2017 COLLEEN silverman [facility] 8 12:31:47 Problem Notes None recorded. Procedures Surgical History Date Name Laterality Status Provider Name and Address Organization Details Recorded Time Cholecystectomy completed [facility] 06/11/2018 16:13:54 Ovarian Cystectomy completed [facility] 06/11/2018 16:14:22 Tonsillectomy completed [facility] 06/11/2018 16:14:34 Tubal Ligation completed [facility] 06/11/2018 16:14:43 Imaging Results Imaging Date Name Status LastModified by Organiz ation Details LastModified Time 06/13/2018 US, pelvis, complete completed [facility] [address], [place], [address], 06/18/2018 16:35:06 06/13/2018 XR, chest completed [facility] [address], [place], [address], 06/18/2018 16:35:06 06/13/2018 US, abdomen completed [facility] [address], [place], [address], 06/18/2018 16:35:06 Procedure Notes None recorded. Medical [...] Updated DateTime 8 157.48 cm 27.7 kg/m2 97555.8 8 g 72 /min 97 % 97 % 172 mm[Hg] 100 mm[Hg] [facility] 8 16:09:13 Date Recorded Body height Body mass index (BMI) Body weight Heart rate Oxygen saturation Oxygen saturation in Arterial blood by Pulse oximetry Systolic blood pressure Diastolic blood pressure Provider Name and Address Organization Details Last Updated DateTime 8 157.48 cm 27.4 kg/m2 40880.1 4 g 60 /min 98 % 98 % 120 mm[Hg] 80 mm[Hg] Lalita Roche [facility] 8 16:03:11 Social History Question Answer Notes LastModified by Organizat ion Details LastModified Time Tobacco Smoking Status Former Smoker LARISA HERRERA andra, [facility] 06/11/2018 16:13:10 What Is Your Level Of [...] toxoid, unspecified formulation 6 completed LARISA HERRERA [facility] 06/11/2018 16:11:15 Influenza, split virus, quadrivalent, preservative 8 completed Not Available [facility] 08/30/2019 02:14:53 Past Encounters Encounter ID Performer Location Encounter Start Date Encounter Closed Date Diagnosis/Indication Diagnosis SNOMED-CT Code Diagnosis ICD10 Code Diagnosis Note [id number] [facility] Main Office [address] [place] [address] [phone] 06/11/2018 15:43:54 06/12/2018 09:16:13 Headache 41585494 R51 Dizziness 554876414 R42 Abdominal pain 25514953 R10.9 Thoracic back pain 31275 8004 M54.6 Left side Elevated blood-pressure reading without diagnosis of hypertension 917091891 R03.0 [id number] [facility] Main Office [address] [place] [address] [phone] 06/18/2018 15:58:13 06/19/2018 08:05:13 Postmenopausal bleeding 40086848 N95.0 Left upper quadrant pain 539517450 R10.12 Headache 57368254 R51 Dizziness 312589548 R42 Pain in pelvis 95541845 R10.2 Chronic constipation 236 088017 K59.09 Health Concerns Section Related Observation LastModified by Organization Detai ls LastModified Time None Recorded Concern Status LastModified by Organization Details LastModified Time None Recorded Advance Directives Directive None Recorded Payers Encounter Date Sequence Insurance Name Policy Number Policy Renteria Covered Member ID Renteria Member ID Guarantor Name 06/11/2018 1 [facility] [id number] Jenny Ledbetter [id number] Jenny Ledbetter 06/18/2018 1 [facility] [id number] Jenny Ledbetter [id number] Jenny Ledbetter Notes Date Note Type Note [...] was 2 or 3 years ago in [place]. She moved to [place] 9 months ago. The patient does not take any medicine whatsoever. She has never had dizziness before. Her headache used to be mild. Denies visual complaints. Denies toothache. Denies fever. She is tired and fatigued as well. She feels nauseated and has intermittent epigastric pain. [facility] 06/14/2018 12:35:30 06/18/2018 text/html Jenny [...] five days. She is taking many things [id number] with no improvement in her symptoms. At first, coffee used to allow her to have a bowel movement, but now no longer does. She had a colonoscopy a few years ago, but does not know when she is due to have another one. She is flying to [place] tomorrow. She does have a family history [...] normal and chest x-ray normal. COLLEEN silverman [place] [facility] 06/24/2018 15:40:51 OBGyn Episode No OBEpisode recorded.
== END 2024-11-11 17:12 | disposition home or self-care (01) ==
LOC: HO.HMCH 16:23
DX: K59.09 Other constipation (principal); M54.9 Dorsalgia, unspecified; R10.12 Left upper quadrant pain; K21.9 Gastro-esophageal reflux disease without esophagitis

== ENCOUNTER → 2024-11-11 16:23 | Outpatient (BNVA) | payer OTHER, SELFPAY | DX: R10.9 Unspecified abdominal pain (principal); M47.816 Spondylosis without myelopathy or radiculopathy, lumbar region; K21.9 Gastro-esophageal reflux disease without esophagitis; K59.09 Other constipation; M54.9 Dorsalgia, unspecified; R10.12 Left upper quadrant pain; E78.00 Pure hypercholesterolemia, unspecified | CPT/HCPCS: 99212 ==

== ENCOUNTER 2024-11-13 07:55 | Outpatient (REF) | payer OTHER, SELFPAY ==
--- OUTSIDE RECORDS SUMMARY | 2024-11-13 07:59 | XMS_ITS | Patient Health Record ---
Author Organization [facility] Address [address] [place] [address] Care Team Providers Care Food And Beverage Outlets Manager Name Role Phone Gibran Fontenot MD Primary Care Provider Mateo Cordero Unavailable [phone] Allergies Allergen (clinical drug ingredient) Drug/Non Drug [...] Problem Status W/U Status Risk Notes Problem 657352336 Encounter for screening for malignant neoplasm of colon (Z12.11) Active confirmed Problem 083692040 History of adenomatous polyp of colon (Z86.010) Active confirmed Problem Screening for malignant neoplasm of rectum (080300896) Encounter for screening for malignant neoplasm of rectum (Z12.12) Active confirmed Problem 045513447 Family history o f colon cancer (Z80.0) Active confirmed Problem 54675103 Constipation, unspecified constipation type (K59.00) Active confirmed Plan Of Treatment Pending Test Test Name Order Date GI BIOPSY 09/30/2015 Future Test Test Name Order Date COLONOSCOPY 08/05/2015 Insurance Providers Payer Name Payer Address Payer Phone Subscriber Number Group Number Insured Name Patient Relationship to Insured Coverage Start Date Coverage End Date [facility] [employer] [facility] [address] [address] [place], [place] [id number] JOSSELINE LARIOS Self - patient is the insured Medical (General) History Medical History History ICD Code Colonoscopy 12-05-2010--hyperplastic polyp s, int/ext hemorrhoids 2 tubular adenomas removed in 2004 Denies [place],DM,CVA,Lung disease,renal dise ase Treated for H.pylori in 06/2015--had a + serology Surgical History Surgery Date(Month/Year) cholecystectomy appendectomy tubal ligation
[2024-11-13 09:26] LABS: Cholesterol 223 mg/dL (<200); Glucose Fasting 104 mg/dL (60-99); HDL Cholesterol 49 mg/dL (>40); LDL Cholesterol Calculated 158 mg/dL (<100); Triglycerides 82 mg/dL (<150)
[2024-11-13 09:29] LABS: TSH reflex Free T4 1.13 uIU/mL (0.32-4.0); Vitamin D 25-OH Total 30.6 ng/mL (>30)
== END 2024-11-13 07:56 | disposition home or self-care (01) ==
LOC: HO.LAB 07:55
DX: E78.00 Pure hypercholesterolemia, unspecified (principal)
CPT/HCPCS: 36415; 80061; 82306; 82947; 84443

== ENCOUNTER 2024-11-27 13:42 | Outpatient (REF) | payer OTHER, SELFPAY ==
--- NOTE | ~2024-11-27 | XR_ITS ---
EXAMINATION: XR ABDOMEN KUB CLINICAL INDICATION: K59.09 - Other constipation COMPARISON: None available. TECHNIQUE: AP view of the abdomen. FINDINGS: Bowel gas pattern is normal/nonspecific. No focally dilated loop. There is a moderate fecal burden seen throughout the colon. There are cholecystectomy clips present. There are no abnormal soft tissue calcifications. There is no organomegaly. The lung bases appear clear. There is no focal osseous abnormality. XR/XR KUB IMPRESSION: 1. No acute abnormalities of the abdomen. 2. Moderate constipation. Electronically signed by: Mauricio Barnett MD 11/28/2024 11:30 AM EDT
--- OUTSIDE RECORDS SUMMARY | 2024-11-27 15:58 | XMS_ITS | Data Portability ---
Author Organization [facility], [facility] Address [address] [place] [address] Care Team Providers Care Administration Internship Name Role Phone COLLEEN ZARCO Primary Care Provider [phone] Assessment Encounter Date Assessment Date Assessment LastModified [...] Aleve/Advil, etc., for now. May use omeprazole [id number] for the stomach pending results. RTC in [...] to improve if she eats. Referred to [facility] for her postmenopausal bleeding. For the left upper quadrant pain that is chronic along with constipation, recommended to put prune juice in the microwave to see if that will allow her to go to the bathroom. If not, we could in the future prescribe a medication for the constipation. She will get her records from her primary care at [place], as she will be there this week [...] By Organization Details Last Modified Time 06/11/2018 [id number] Not available 06/12/2018 09:39:50 06/18/2018 [id number] Not available 06/19/2018 08:26:08 Reason for Referral None Reported. Results Created Date Observation Date Name Description Value Unit Range Abnormal Flag Note LastModifiedBy Organization Detail LastModifiedTime 06/14/20 18 06/13/2018 US, pelvi s, compl ete No observ ation record ed. [facility] [address], [place], [address], 06/18/2018 16:35:06 06/14/20 18 06/13/2018 XR, chest No observ ation record ed. [facility] [address], [place], [address], 06/18/2018 16:35:06 06/14/20 18 06/13/2018 US, abdom en No observ ation record ed. [facility] [address], [place], [address], 06/18/2018 16:35:06 Result Notes None recorded. Problems Name Problem SNOMED Code Status Onset Date Resolution Date Notes Provider Name and Address Organization Details Recorded Time Thoracic back pain 530647208 Active 2017 COLLEEN silverman [facility] 8 12:31:46 Elevated blood-pressure reading without diagnosis of hypertension 185942123 Active 2017 COLLEEN silverman [facility] 8 12:31:47 Problem Notes None recorded. Procedures Surgical History Date Name Laterality Status Provider Name and Address Organization Details Recorded Time Cholecystectomy completed [facility] 06/11/2018 16:13:54 Ovarian Cystectomy completed [facility] 06/11/2018 16:14:22 Tonsillectomy completed [facility] 06/11/2018 16:14:34 Tubal Ligation completed [facility] 06/11/2018 16:14:43 Imaging Results Imaging Date Name Status LastModified by Organiz ation Details LastModified Time 06/13/2018 US, pelvis, complete completed [facility] [address], [place], [address], 06/18/2018 16:35:06 06/13/2018 XR, chest completed [facility] [address], [place], [address], 06/18/2018 16:35:06 06/13/2018 US, abdomen completed [facility] [address], [place], [address], 06/18/2018 16:35:06 Procedure Notes None recorded. Medical [...] Updated DateTime 8 157.48 cm 27.7 kg/m2 97106.8 8 g 72 /min 97 % 97 % 172 mm[Hg] 100 mm[Hg] [facility] 8 16:09:13 Date Recorded Body height Body mass index (BMI) Body weight Heart rate Oxygen saturation Oxygen saturation in Arterial blood by Pulse oximetry Systolic blood pressure Diastolic blood pressure Provider Name and Address Organization Details Last Updated DateTime 8 157.48 cm 27.4 kg/m2 67217.1 4 g 60 /min 98 % 98 % 120 mm[Hg] 80 mm[Hg] Lalita Roche [facility] 8 16:03:11 Social History Question Answer Notes LastModified by Organizat ion Details LastModified Time Tobacco Smoking Status Former Smoker LARISA HERRERA andra, [facility] 06/11/2018 16:13:10 What Is Your Level [...] toxoid, unspecified formulation 6 completed LARISA HERRERA [facility] 06/11/2018 16:11:15 Influenza, split virus, quadrivalent, preservative 8 completed Not Available [facility] 08/30/2019 02:14:53 Past Encounters Encounter ID Performer Location Encounter Start Date Encounter Closed Date Diagnosis/Indication Diagnosis SNOMED-CT Code Diagnosis ICD10 Code Diagnosis Note [id number] Colleen Zarco MD Main Office [address] [place] [id number] 06/11/2018 15:43:54 06/12/2018 09:16:13 Headache 05178199 R51 Dizziness 175366614 R42 Abdominal pain 09594992 R10.9 Thoracic back pain 88801 8004 M54.6 Left side Elevated blood-pressure reading without diagnosis of hypertension 939551518 R03.0 [id number] ROBBIE AUSTIN APRN Main Office [address] [place], [place] [id number] 06/18/2018 15:58:13 06/19/2018 08:05:13 Postmenopausal bleeding 72694837 N95.0 Left upper quadrant pain 371473023 R10.12 Headache 54136506 R51 Dizziness 798327125 R42 Pain in pelvis 46345530 R10.2 Chronic constipation 236 126145 K59.09 Health Concerns Section Related Observation LastModified by Organization Detai ls LastModified Time None Recorded Concern Status LastModified by Organization Details LastModified Time None Recorded Advance Directives Directive None Recorded Payers Encounter Date Sequence Insurance Name Policy Number Policy Renteria Covered Member ID Renteria Member ID Guarantor Name 06/11/2018 1 [facility] [id number] Jenny Ledbetter [id number] Jenny Ledbetter 06/18/2018 1 [facility] [id number] Jenny Ledbetter [id number] Jenny Ledbetter Notes Date Note Type Note [...] 2 or 3 years ago in [place]. She moved to [place] 9 months ago. The patient does not take any medicine whatsoever. She has never had dizziness before. Her headache used to be mild. Denies visual complaints. Denies toothache. Denies fever. She is tired and fatigued as well. She feels nauseated and has intermittent epigastric pain. [facility] 12:35:30 06/18/2018 text/html [...] five days. She is taking many things [id number] with no improvement in her symptoms. At first, coffee used to allow her to have a bowel movement, but now no longer does. She had a colonoscopy a few years ago, but does not know when she is due to have another one. She is flying to [place] tomorrow. She does have a family history [...] ultrasound was normal and chest x-ray normal. WILLIAM Franklin - [facility] 06/24/2018 15:40:51 OBGyn Episode No OBEpisode recorded.
== END 2024-11-27 13:43 | disposition home or self-care (01) ==
LOC: HO.XRAY 13:42
DX: K59.09 Other constipation (principal); R10.32 Left lower quadrant pain; E78.00 Pure hypercholesterolemia, unspecified; K21.9 Gastro-esophageal reflux disease without esophagitis; R42 Dizziness and giddiness; M47.9 Spondylosis, unspecified; M54.50 Low back pain, unspecified; G89.29 Other chronic pain; F41.9 Anxiety disorder, unspecified
CPT/HCPCS: 74018; 99212

== ENCOUNTER → 2024-11-27 13:47 | Outpatient (BNV) | payer OTHER, SELFPAY | PROVIDERS: Visit Provider Radiology Diagnostic Radiology | DX: K59.00 Constipation, unspecified (principal) | CPT/HCPCS: 74018 ==

== ENCOUNTER 2024-11-27 14:08 | Outpatient (AMB) | payer OTHER, SELFPAY ==
[2024-11-27 14:23] VITALS: BP 124/72; PULSE 65; RESP 18; TEMP 36.8; O2SAT 97; BMI 24.1
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
== END 2024-11-27 15:26 | disposition home or self-care (01) ==
LOC: HO.HMCH 14:09
DX: R10.12 Left upper quadrant pain (principal); E78.00 Pure hypercholesterolemia, unspecified; K21.9 Gastro-esophageal reflux disease without esophagitis; R42 Dizziness and giddiness; K59.09 Other constipation; M47.9 Spondylosis, unspecified; M54.50 Low back pain, unspecified; G89.29 Other chronic pain; F41.9 Anxiety disorder, unspecified

== ENCOUNTER 2025-01-19 10:36 | Outpatient (AMB) | payer OTHER, SELFPAY ==
[2025-01-19 10:42] VITALS: BP 142/100; PULSE 69; TEMP 36.1; O2SAT 98; BMI 23.6
--- NOTE | 2025-01-19 10:42 | A.OFFPC_ITS ---
Vital Signs 01/19/25 10:42 01/19/25 11:15 Height 5 ft 3 in Weight 133 lb 8 oz BMI 23.6 BP 142/100 H 130/80 Blood Pressure Location Lt brachial Position Sitting Pulse 69 Pulse Source Pulse Oximeter Temp 96.9 F Temp Source Temporal Artery Scan Pulse Oximetry (%) 98 Oxygen Delivery Method Room Air Intake Visit Reasons: dizziness, vomiting/nausea Seismograph Shooter Required: No Accompanied by: Self / Same As Patient Allergies IV MED FOR VOMITING Allergy (Unknown, Uncoded 01/19/25 10:54) unknown Tobacco use date assessed: 11/27/24 Dental Screening Dental Screen Date: 11/27/24 HPI dizziness, vomiting/nausea HPI Details The patient is a 59-year-old female presenting with dizziness and vertigo. She reports experiencing dizziness and vertigo, which have been persistent and bothersome. Additionally, she wakes up every day with a headache and sometimes experiences numbness in her toe. The patient has a history of hypertension, which she is concerned about managing. Her blood pressure was recorded at 130/80 mmHg during the visit, which is within the normal range. She mentions that her blood pressure can be variable depending on her stress levels and activities. She also reports experiencing vomiting, which is associated with her dizziness and at times visual disturbances. The patient has been advised to undergo head imaging to rule out any intracranial issues causing these symptoms. [facility] Medical History (Updated 01/19/25 @ 11:05 by Bharathi Bowers PA-C) Chronic constipation JESSE III (cervical intraepithelial neoplasia grade III) with severe dysplasia Abscess of buttock Abdominal pain GERD (gastroesophageal reflux disease) Constipation Nausea Vertigo HPV (human papilloma virus) anogenital infection Colon polyps Surgical History Hx of colonoscopy History of tubal ligation H/O LEEP History of surgery History of cholecystectomy History of appendectomy Family History Mother Colon cancer Maternal Grandfather No problems noted. Father Asthma Brother Lymphoma involving liver Maternal Aunt Breast cancer Social History Household Members: Significant Other Household Members Other:: lives with Housing: Apartment Alcohol intake: never Comment: baseline Patient Tobacco Use Status: Never used Tobacco Tobacco use type: Cigarette e-Cigarette/Vaping Use: Never Used Second Hand Smoke Exposure: No Advance Directives Date on File: 04/07/21 service: No Current occupational status: employed Current occupation: [employer] Sexual orientation: Straight/Heterosexual Gender identity: Female Cognitive needs: No Hearing needs: No Vision needs: Yes (Glasses) Female Reproductive History Menstrual Age of Menarche: 14 Questionnaire Thrive Questionnaire Date Thrive assessed: 11/27/24 I am a: Patient What is your living situation today?: I have a steady place to live Within the past 12 months, did the food you bought not last and you didn't have the money to get more?: Never true Within the past 12 months, did you worry whether your food would run out before you got money to buy more?: Never true Do you have trouble paying for medicines?: No Do you have trouble getting transportation to medical appointments?: No Do you have trouble paying your heating and electricity bill?: No Do you have trouble taking care of your child, family member or friend?: No Do you have trouble with day-to-day activities such as bathing, preparing meals, shopping, managing finances, etc.?: No Are you currently unemployed and looking for a job?: Yes Are you interested in more education?: No Please select the resources that you would like help with: None Currently or been in a relationship where the following occur: I choose not to answer THRIVE Score: 0 ANNAMARIA-7 AMB Questionnaire ANNAMARIA-7 Date ANNAMARIA - 7 assessed: 11/27/24 Source: Developed by Drs. Mateo Menendez, Marie Engle, Leonardo Christiansen and colleagues, with an educational tatum from [employer]. Review of Systems Const Denies headache(s) Eyes Denies loss of vision ENT Reports vertigo, Reports dizziness, Denies headache(s) and Denies sore throat Card Denies chest pain, Denies leg edema and Denies lightheadedness Resp Denies cough, Denies hemoptysis and Denies wheezing GI Denies abdominal pain, Denies melena, Denies constipation, Denies diarrhea, Reports nausea and Reports vomiting Denies urinary frequency, Denies dysuria and Denies urinary urgency Musc Denies arthralgias, Denies joint swelling, Denies numbness and Denies tingling Neuro Denies Abnormal speech present, Denies behavioral changes, Reports vertigo, Reports dizziness, Denies headache(s), Denies loss of vision, Denies memory loss, Denies numbness and Denies tingling Psych Denies anxiety, Denies behavioral changes, Denies depression, Denies memory loss and Denies panic attacks Niall/Lymph Denies easy bleeding and Denies easy bruising Aller/Immun Denies wheezing Physical exam (Primary Care) Vital Signs: Last Vital Signs Temp 96.9 F 01/19/25 10:42 Pulse 69 01/19/25 10:42 BP 130/80 01/19/25 11:15 Pulse Ox 98 01/19/25 10:42 Oxygen Delivery Method Room Air 01/19/25 10:42 BMI result Body Mass Index 23.6 Tobacco/Smoking Status: Tobacco use Status Tobacco use date assessed 11/27/24 01/19/25 10:43 Patient Tobacco Use Status Never used Tobacco 01/19/25 10:43 Tobacco use type Cigarette 01/19/25 10:43 e-Cigarette/Vaping Use Never Used 01/19/25 10:43 Thrive Assessment: Date of Thrive Assessment Date Thrive assessed 11/27/24 01/19/25 10:43 Currently or been in a relationship where the following occur: I choose not to answer Const General: healthy appearing, no acute distress, alert and awake Nutritional Appearance: well nourished Orientation/consciousness: oriented to person, oriented to place and oriented to time HENMT Ears: TM's normal bilaterally General nose exam: Normal nasal mucous membranes and turbinates present Eyes Conjunctivae: conjunctivae normal Sclerae: sclerae normal Pupils: Equal, round and reactive pupils present Neck Neck: Yes no lymphadenopathy and Yes no JVD Thyroid: Thyroid normal Carotids: no bruits Resp Effort & Inspection: normal respiratory effort and not tachypneic Auscultation: no crackles, no rales, no rhonchi and no wheezes Cardio Rate: regular rate Rhythm: regular rhythm Heart sounds: no murmurs and normal S1 and S2 GI Palpation (GI): Soft to palpation, nontender, no hepatomegaly and no splenomegaly Auscultation: normal bowel sounds Skin General skin exam: no rashes or lesions noted and dry skin Neuro General: oriented to person, oriented to place and oriented to time Cranial nerves: Yes Equal, round and reactive pupils present Speech: No Abnormal speech present Gait exam (Neuro): Normal gait present Motor exam (neuro): no tremor noted Extrem Right upper extremity: full ROM Left upper extremity: full ROM Right lower extremity: full ROM; no edema Left lower extremity: full ROM; no edema Psych Mental Status: mental status grossly normal Speech and movement: Normal speech and movement present Affect: normal affect Attitude: cooperative Thought process: Normal thought process present Coding Level of Care Code Est Pt Level 3 (04491) Diagnoses Benign paroxysmal positional vertigo due to bilateral vestibular disorder H81.13 Laterality: bilateral Assessment & Plan Assessment & Plan (1) BPPV (benign paroxysmal positional vertigo): Code(s): H81.10 - Benign paroxysmal vertigo, unspecified ear Category: Medical Qualifiers: Laterality: bilateral Qualified Code(s): H81.13 - Benign paroxysmal vertigo, bilateral Plan: The patient will undergo head imaging to rule out any intracranial causes of dizziness and vertigo. If symptoms worsen, she is advised to visit the emergency room for further evaluation. Patient has done vestibular therapy in the past though has not been helpful. She does report meclizine it temporarily helpful at times -- >What is concerning here is patient's chronic symptoms of nausea and vomiting along with her dizziness and visual disturbances. Again will try for MRI to evaluate for any intracranial pathology Of note patient does suffer from claustrophobia thus will give 1 dose of lorazepam to use preprocedure Orders: Orders Comprehensive Met. Panel 01/19/25 R42 - Dizziness and giddiness Complete Blood Count no Diff 01/19/25 R42 - Dizziness and giddiness MR head/brain wo con 01/19/25 R42 - Dizziness and giddiness Medications: New lorazepam take 1 tab before procedure 1 mg PO ONCE PRN 1 tab 0RF anxiety 1 day
[2025-01-19 11:15] VITALS: BP 130/80
--- OUTSIDE RECORDS SUMMARY | 2025-01-19 11:51 | XMS_ITS | Data Portability ---
Author Organization [facility], [facility] Address [address] [place] [address] Care Team Providers Care Rubber Compounder Supervisor Name Role Phone COLLEEN ZARCO Primary Care Provider [phone] Assessment Encounter Date Assessment Date Assessment LastModified [...] Aleve/Advil, etc., for now. May use omeprazole [id number] for the stomach pending results. RTC in 1week. Not available 06/14/2018 12:35:25 06/18/2018 06/18/2018 Dr. [...] to improve if she eats. Referred to [facility] for her postmenopausal bleeding. For the left upper quadrant pain that is chronic along with constipation, recommended to put prune juice in the microwave to see if that will allow her to go to the bathroom. If not, we could in the future prescribe a medication for the constipation. She will get her records from her primary care at [place], as she will be there this week and to find out when her last colonoscopy was. Not available 06/24/2018 15:40:14 Plan of Treatment [...] By Organization Details Last Modified Time 06/11/2018 [id number] Not available 06/12/2018 09:39:50 06/18/2018 [id number] Not available 06/19/2018 08:26:08 Reason for Referral None Reported. Results Created Date Observation Date Name Description Value Unit Range Abnormal Flag Note LastModifiedBy Organization Detail LastModifiedTime 06/14/20 18 06/13/2018 US, pelvi s, compl ete No observ ation record ed. [facility] [address] [place], [address], 06/18/2018 16:35:06 06/14/20 18 06/13/2018 XR, chest No observ ation record ed. [facility] [address], [place], [address], 06/18/2018 16:35:06 06/14/20 18 06/13/2018 US, abdom en No observ ation record ed. [facility] [address], [place], [address], 06/18/2018 16:35:06 Result Notes None recorded. Problems Name Problem SNOMED Code Status Onset Date Resolution Date Notes Provider Name and Address Organization Details Recorded Time Thoracic back pain 573182343 Active 2017 COLLEEN silverman [facility] 8 12:31:46 Elevated blood-pressure reading without diagnosis of hypertension 995591951 Active 2017 COLLEEN silverman [facility] 8 12:31:47 Problem Notes None recorded. Procedures Surgical History Date Name Laterality Status Provider Name and Address Organization Details Recorded Time Cholecystectomy completed LARISACHRIS HERRERA [facility] 06/11/2018 16:13:54 Ovarian Cystectomy completed LARISACHRIS HERRERA [facility] 06/11/2018 16:14:22 Tonsillectomy completed LARISA SHARON [facility] 06/11/2018 16:14:34 Tubal Ligation completed LARISACHRIS BARAKATR [facility] 06/11/2018 16:14:43 Imaging Results None recorded. Procedure Notes None recorded. Medical Equipment None [...] Updated DateTime 8 157.48 cm 27.7 kg/m2 62227.8 8 g 72 /min 97 % 97 % 172 mm[Hg] 100 mm[Hg] LARISA SHARON [facility] 8 16:09:13 Date Recorded Body height Body mass index (BMI) Body weight Heart rate Oxygen saturation Oxygen saturation in Arterial blood by Pulse oximetry Systolic blood pressure Diastolic blood pressure Provider Name and Address Organization Details Last Updated DateTime 8 157.48 cm 27.4 kg/m2 00992.1 4 g 60 /min 98 % 98 % 120 mm[Hg] 80 mm[Hg] Lalita Roche [facility] 8 16:03:11 Social History Question Answer Notes LastModified by Organizat ion Details LastModified Time Tobacco Smoking Status [facility] 16:13:10 What Is Your Level Of Caffeine Consumption? Moderate Information not available 06/11/2018 How Many Days [...] Functional Status Question Answer Note LastModified by Organizat ion Details LastModified Time What is your level of alcohol consumption? None Information not available 06/11/2018 Are you able to care for yourself? Yes Information not available 06/11/2018 What is your occupation? [email or web address] Information not available 06/11/2018 Mental Status None recorded. Family [...] toxoid, unspecified formulation 6 completed LARISA HERRERA [facility] 06/11/2018 16:11:15 Influenza, split virus, quadrivalent, preservative 8 completed Not Available [facility] 08/30/2019 02:14:53 Past Encounters Encounter ID Performer Location Encounter Start Date Encounter Closed Date Diagnosis/Indication Diagnosis SNOMED-CT Code Diagnosis ICD10 Code Diagnosis Note [id number] Colleen Zarco MD Main Office [address] [place] [id number] 06/11/2018 15:43:54 06/12/2018 09:16:13 Headache 18304565 R51 Dizziness 008136837 R42 Abdominal pain 17183454 R10.9 Thoracic back pain 24326 8004 M54.6 Left side Elevated blood-pressure reading without diagnosis of hypertension 314936045 R03.0 [id number] ROBBIE AUSTIN APRN Main Office [address] [place] [id number] 7 06/18/2018 15:58:13 06/19/2018 08:05:13 Postmenopausal bleeding 23615208 N95.0 Left upper quadrant pain 755788439 R10.12 Headache 23028901 R51 Dizziness 391418603 R42 Pain in pelvis 67985879 R10.2 Chronic constipation 236 617517 K59.09 Health Concerns Section Related Observation LastModified by Organization Detai ls LastModified Time None Recorded Concern Status LastModified by Organization Details LastModified Time None Recorded Advance Directives Directive None Recorded Payers Insurance Date Sequence Insurance Name Policy Number Policy Renteria Covered Member ID Renteria Member ID Guarantor Name 06/17/2018 1 [facility] [id number] Jenny Ledbetter [id number] Jenny Ledbetter Notes Date Note Type Note [...] was 2 or 3 years ago in [place]. She moved to [place] 9 months ago. The patient does not take any medicine whatsoever. She has never had dizziness before. Her headache used to be mild. Denies visual complaints. Denies toothache. Denies fever. She is tired and fatigued as well. She feels nauseated and has intermittent epigastric pain. COLLEEN silverman [facility] 06/14/2018 12:35:30 06/18/2018 text/html Jenny is here [...] five days. She is taking many things [id number] with no improvement in her symptoms. At first, coffee used to allow her to have a bowel movement, but now no longer does. She had a colonoscopy a few years ago, but does not know when she is due to have another one. She is flying to [place] tomorrow. She does have a family history [...] normal and chest x-ray normal. COLLEEN silverman [facility] 06/24/2018 15:40:51 OBGyn Episode No OBEpisode recorded.
== END 2025-01-19 11:21 | disposition home or self-care (01) ==
LOC: HO.HMCH 10:36
PROVIDERS: Visit Provider Physician Assistant
DX: H81.13 Benign paroxysmal vertigo, bilateral (principal)

== ENCOUNTER 2025-01-19 10:36 | Outpatient (REF) | payer OTHER, SELFPAY ==
[2025-01-19 12:07] LABS: Hematocrit 38.7 % (37.0-47.0); Hemoglobin 13.2 g/dl (12.0-16.0); Mean Corpuscular HGB Conc 34.1 g/dl (31.0-35.0); Mean Corpuscular Hemoglobin 31.7 pg (27.0-33.0); Mean Corpuscular Volume 92.8 fL (80.0-98.0); Mean Platelet Volume 9.6 fL (9.4-12.3); Platelet Count 284 X10*3/uL (160-400); Red Blood Count 4.17 X10*6/uL (4.20-5.50); Red Cell Distribution Width 12.4 % (11.0-16.0); White Blood Count 8.9 X10*3/uL (4.8-10.8)
[2025-01-19 12:31] LABS: Alanine Aminotransferase 22 U/L (0-31); Albumin Level 4.7 g/dL (3.5-5.0); Alkaline Phosphatase 102 U/L (39-117); Anion Gap 12 (12-20); Aspartate Amino Transferase 26 U/L (5-31); Bilirubin Total 0.2 mg/dL (0.0-1.0); Blood Urea Nitrogen 12 mg/dL (9-16); Calcium 9.6 mg/dL (8.4-10.2); Carbon Dioxide 25 mmol/L (22-29); Chloride 107 mmol/L (96-108); Estimated Glomerular Filt Rate > 60; Glucose Random 95 mg/dL (60-115); Potassium 4.1 mmol/L (3.3-5.1); Sodium 140 mmol/L (135-145); Total Protein 7.5 g/dL (6.5-8.0)
== END 2025-01-19 10:37 | disposition home or self-care (01) ==
LOC: HO.LAB 10:36
PROVIDERS: Visit Provider Physician Assistant
DX: H81.13 Benign paroxysmal vertigo, bilateral (principal)
CPT/HCPCS: 36415; 80053; 85027; 99212

== ENCOUNTER → 2025-01-25 18:15 | Outpatient (BNV) | payer OTHER, SELFPAY | PROVIDERS: Visit Provider Radiology Diagnostic Radiology | DX: H81.13 Benign paroxysmal vertigo, bilateral (principal); Q04.8 Other specified congenital malformations of brain | CPT/HCPCS: 70551 ==

== ENCOUNTER 2025-01-25 18:18 | Outpatient (REF) | payer OTHER, SELFPAY ==
--- NOTE | ~2025-01-25 | MR_ITS ---
EXAMINATION: MR BRAIN WITHOUT CONTRAST CLINICAL INFORMATION: Benign paroxysmal vertigo, bilateral. Dizziness, giddiness. COMPARISON: None available. TECHNIQUE: MRI of the brain was obtained using routine sequences without contrast. FINDINGS: No restricted diffusion. No acute intracranial hemorrhage, mass effect, midline shift, hydrocephalus or herniation. Johnson-white matter differentiation is normal. Bilateral, a few scattered punctate, nonspecific white matter hyperintense T2 FLAIR signal. Posterior cranial fossa contents demonstrated negative cisterna magna. Flow-void signal within the main cerebral vessels is normal. Sellar/suprasellar region demonstrated no signal abnormality or masses. Craniocervical junction demonstrates normal position of the cerebellar tonsils. Fluid signal characteristic well-defined rounded structures in the nasopharynx. MR/MR head/brain wo con IMPRESSION: No acute brain abnormality. Jorden cisterna magna. Electronically signed by: Wily Juloi MD 01/26/2025 09:14 AM EDT
== END 2025-01-25 18:19 | disposition home or self-care (01) ==
LOC: HO.MRI 18:18
PROVIDERS: Visit Provider Physician Assistant
DX: H81.13 Benign paroxysmal vertigo, bilateral (principal)
CPT/HCPCS: 70551

== ENCOUNTER 2025-04-06 10:48 | Outpatient (REF) | payer OTHER, SELFPAY ==
[2025-04-06 12:25] LABS: MANUAL DIFF FLAG NO
[2025-04-06 12:46] LABS: Hematocrit 40.9 % (37.0-47.0); Hemoglobin 13.6 g/dl (12.0-16.0); Imm Gran Abs Auto 0.01 X10*3/uL (0.00-0.03); Imm Gran Pct Auto 0.1 % (0.0-0.4); Lymphocytes Absolute Auto 2.8 X10*3/uL (1.2-4.9); Mean Corpuscular HGB Conc 33.3 g/dl (31.0-35.0); Mean Corpuscular Hemoglobin 31.1 pg (27.0-33.0); Mean Corpuscular Volume 93.6 fL (80.0-98.0); NRBC Abs Auto 0.000 X10*3/uL (0.0-0.012); NRBC Pct Auto 0.0 /100WBC (0.0-0.2); Platelet Count 273 X10*3/uL (160-400); Red Blood Count 4.37 X10*6/uL (4.20-5.50); White Blood Count 7.6 X10*3/uL (4.8-10.8)
[2025-04-06 13:34] LABS: Alanine Aminotransferase 24 U/L (0-31); Albumin Level 4.7 g/dL (3.5-5.0); Alkaline Phosphatase 86 U/L (39-117); Anion Gap 13 (12-20); Aspartate Amino Transferase 29 U/L (5-31); Blood Urea Nitrogen 8 mg/dL (9-16); Calcium 9.4 mg/dL (8.4-10.2); Carbon Dioxide 27 mmol/L (22-29); Chloride 108 mmol/L (96-108); Cholesterol 212 mg/dL (<200); Estimated Glomerular Filt Rate > 60; HDL Cholesterol 57 mg/dL (>40); Magnesium 2.1 mg/dL (1.6-2.6); Potassium 3.8 mmol/L (3.3-5.1); Sodium 144 mmol/L (135-145); Total Protein 7.3 g/dL (6.5-8.0); Triglycerides 95 mg/dL (<150)
[2025-04-06 14:23] LABS: Appearance Urine Clear; Glucose Urine UA Negative (Negative); PH 6.5 (5.0-9.0); Specific Gravity - Urine 1.010 (1.005-1.025)
== END 2025-04-06 10:49 | disposition home or self-care (01) ==
LOC: HO.LAB 10:48
PROVIDERS: Visit Provider Internal Medicine
DX: Z12.31 Encounter for screening mammogram for malignant neoplasm of breast (principal); F41.1 Generalized anxiety disorder; R30.0 Dysuria; K21.9 Gastro-esophageal reflux disease without esophagitis; E78.00 Pure hypercholesterolemia, unspecified; M47.9 Spondylosis, unspecified; R42 Dizziness and giddiness; N83.209 Unspecified ovarian cyst, unspecified side; D06.9 Carcinoma in situ of cervix, unspecified; K59.00 Constipation, unspecified; M54.2 Cervicalgia; Z79.899 Other long term (current) drug therapy
CPT/HCPCS: 36415; 80053; 80061; 81003; 82306; 82947; 83735; 84443; 85025; 99212

== ENCOUNTER 2025-04-06 10:48 | Outpatient (AMB) | payer OTHER, SELFPAY ==
[2025-04-06 10:51] VITALS: BP 132/68; PULSE 64; O2SAT 99; BMI 22.8
--- NOTE | 2025-04-06 10:51 | A.OFFPC_ITS ---
Vital Signs 04/06/25 10:51 Height 5 ft 3 in Weight 129 lb BMI 22.8 BP 132/68 Blood Pressure Location Lt brachial Position Sitting Pulse 64 Pulse Source Pulse Oximeter Pulse Oximetry (%) 99 Oxygen Delivery Method Room Air Intake Visit Reasons: Dizziness Allergies IV MED FOR VOMITING Allergy (Unknown, Uncoded 04/06/25 10:52) unknown Medication List - Last Reconciled 04/06/25 by Delia Malagon MD famotidine (Pepcid) 20 mg PO DAILY PRN hydrocortisone 2.5% (Proctosol HC) 1 appl OR BID-QID PRN triamcinolone acetonide 0.5% 1 appl topical TID Tobacco use date assessed: 11/27/24 Dental Screening Dental Screen Date: 11/27/24 [facility] Medical History (Updated 04/06/25 @ 11:57 by Delia Malagon MD) Chronic constipation JESSE III (cervical intraepithelial neoplasia grade III) with severe dysplasia Abscess of buttock Abdominal pain GERD (gastroesophageal reflux disease) Constipation Nausea Vertigo HPV (human papilloma virus) anogenital infection Colon polyps Surgical History Hx of colonoscopy History of tubal ligation H/O LEEP History of surgery History of cholecystectomy History of appendectomy Family History Mother Colon cancer Maternal Grandfather No problems noted. 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 1. Little interest or pleasure in doing things: not at all 2. Feeling down, depressed, or hopeless: nearly every day 3. Trouble falling or staying asleep, or sleeping too much: nearly every day 4. Feeling tired or having little energy: nearly every day 5. Poor appetite or overeating: not at all 6. Feeling bad about yourself - or that you are a failure or have let yourself or your family down: not at all 7. Trouble concentrating on things, such as reading the newspaper or watching television: not at all 8. Moving or speaking so slowly that other people could have noticed. Or the opposite - being so fidgety or restless that you have been moving around a lot more than usual: not at all 9. Thoughts that you would be better off or of hurting yourself in some way: not at all Total score: 9 Depression Screening Interpretation: Positive Depression Screening Done: Yes Source: Developed by Drs. Mateo Menendez, Marie Engle, Leonardo Christiansen and colleagues, with an educational tatum from [employer]. Thrive Questionnaire Date Thrive assessed: 11/27/24 I am a: Patient What is your living situation today?: I have a steady place to live Within the past 12 months, did the food you bought not last and you didn't have the money to get more?: Never true Within the past 12 months, did you worry whether your food would run out before you got money to buy more?: Never true Do you have trouble paying for medicines?: No Do you have trouble getting transportation to medical appointments?: No Do you have trouble paying your heating and electricity bill?: No Do you have trouble taking care of your child, family member or friend?: No Do you have trouble with day-to-day activities such as bathing, preparing meals, shopping, managing finances, etc.?: No Are you currently unemployed and looking for a job?: Yes Are you interested in more education?: No Please select the resources that you would like help with: None Currently or been in a relationship where the following occur: I choose not to answer THRIVE Score: 0 AUDIT C Alcohol Use Questionnaire (AUDIT-C) 1. How often do you have a drink containing alcohol?: Never 3. How often do you have six or more drinks on one occasion?: Never Total Score: 0 ANNAMARIA-7 AMB Questionnaire ANNAMARIA-7 Date ANNAMARIA - 7 assessed: 11/27/24 Source: Developed by DrsHellen Menendez, Marie Engle, Leonardo Christiansen and colleagues, with an educational tatum from [employer]. Physical exam (Primary Care) Vital Signs: Last Vital Signs Pulse 64 04/06/25 10:51 BP 132/68 04/06/25 10:51 Pulse Ox 99 04/06/25 10:51 Oxygen Delivery Method Room Air 04/06/25 10:51 BMI result Body Mass Index 22.8 Tobacco/Smoking Status: Tobacco use Status Tobacco use date assessed 11/27/24 04/06/25 10:52 Patient Tobacco Use Status Never used Tobacco 04/06/25 10:52 Tobacco use type Cigarette 04/06/25 10:52 e-Cigarette/Vaping Use Never Used 04/06/25 10:52 PHQ-9: PHQ-9 Score PHQ-9: Total score 9 04/06/25 11:35 Depression Screening Interpretation: Positive Thrive Assessment: Date of Thrive Assessment Date Thrive assessed 11/27/24 04/06/25 10:52 Currently or been in a relationship where the following occur: I choose not to answer Const General: alert; No acute distress Eyes Conjunctivae: conjunctivae normal Resp Auscultation: clear to auscultation bilaterally Cardio Rate: regular rate Rhythm: regular rhythm GI Inspection: Yes normal to inspection Extrem General: Yes normal to inspection and No edema Coding Level of Care Code Est Pt Level 4 (29577) Diagnoses Pure hypercholesterolemia with target low density lipoprotein (LDL) cholesterol less than 130 mg/dL E78.00 Gastroesophageal reflux disease without esophagitis K21.9 Esophagitis presence: without esophagitis JESSE III (cervical intraepithelial neoplasia grade III) with severe dysplasia D06.9 ANNAMARIA (generalized anxiety disorder) F41.1 Vertigo R42 Screening mammogram, encounter for Z12.31 Constipation K59.00 Neck pain M54.2 Assessment & Plan Assessment & Plan (1) Pure hypercholesterolemia with target low density lipoprotein (LDL) cholesterol less than 130 mg/dL: Code(s): E78.00 - Pure hypercholesterolemia, unspecified Category: Medical Plan: Avoid fried foods, chicken skin, eggs, butter margarine, pastries and meat. Be it pork or beef they have a lot of cholesterol LDL goal of less than 130 and triglyceride of less than 150 (2) GERD (gastroesophageal reflux disease): Code(s): K21.9 - Gastro-esophageal reflux disease without esophagitis Category: Medical Qualifiers: Esophagitis presence: without esophagitis Qualified Code(s): K21.9 - Gastro-esophageal reflux disease without esophagitis Plan: Avoid the foods that causes that usually spicy foods, tomato products, juices, coffee, soda and foods that your sensitive to. After eating do not lie down, allow 3-4 hours before in lie down. And keep the head of bed above 30 degrees to avoid the acid from going up. (3) JESSE III (cervical intraepithelial neoplasia grade III) with severe dysplasia: Comment: Status post cone with post cone ECC with ? Positive margins JESSE 2 Code(s): D06.9 - Carcinoma in situ of cervix, unspecified Category: Medical Plan: Patient follows up with Gynecology (4) ANNAMARIA (generalized anxiety disorder): Code(s): F41.1 - Generalized anxiety disorder Category: Medical (5) Vertigo: Code(s): R42 - Dizziness and giddiness Category: Medical Plan: Referral to Neurology as the patient has had workup already with negative results (6) Screening mammogram, encounter for: Code(s): Z12.31 - Encounter for screening mammogram for malignant neoplasm of breast Category: Medical Plan: Mammogram requested (7) Constipation: Code(s): K59.00 - Constipation, unspecified Category: Medical Plan: Three rules for constipation 1. Diet need to have a high fiber diet less of meat 2. Increase oral fluids 3. Exercise (8) Neck pain: Code(s): M54.2 - Cervicalgia Category: Medical Plan: Looking more musculoskeletal, heat helps discussed about medication side effects also Plan History of Present Illness The patient is a 59-year-old female presenting with dizziness and chronic constipation. She reports experiencing dizziness daily, with episodes of pain extending from her head to her back, and occasional headaches since Sunday, although she mentions these symptoms occur intermittently. She also reports memory issues, feeling forgetful at times, and has been experiencing these symptoms intermittently. The patient has a history of chronic constipation, which she attributes to dietary habits and possibly medication use. She reports taking vitamin D supplements and has been advised to increase her water intake and dietary fiber to manage her constipation. She also experiences hemorrhoids, which bleed occasionally, and has been advised on proper bathroom habits to alleviate this issue. The patient has a history of Cervical Intraepithelial Neoplasia Grade 3 (CIN3) and follows up with gynecology for this condition. She has undergone a brain MRI in December 2024, which showed no acute abnormalities but noted a megalocisterna magna. Her last blood work in December showed normal blood counts, electrolytes, renal function, and liver function, but elevated cholesterol levels. Health Maintenance - Advised to increase water intake and dietary fiber for constipation management. - Recommended vitamin D supplementation due to deficiency. - Encouraged to follow up with gynecology for CIN3 management. - Discussed cholesterol management with a goal of LDL less than 130 mg/dL. 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 - Diet: Consumes fish and chicken, with an emphasis on reducing fried foods and increasing green leafy vegetables. Review of Systems - Neurological: Reports dizziness daily, memory issues, and headaches. - Gastrointestinal: Reports chronic constipation and hemorrhoids with occasional bleeding. - Musculoskeletal: Reports pain extending from head to back. - Ophthalmologic: Reports vision changes when moving eyes, no recent eye examination. Physical Exam - Neurological: Memory and arithmetic tasks performed, no significant deficits noted. - Musculoskeletal: Pain noted upon chin to chest movement. - Neurological: Squeeze test of fingers performed, no abnormalities noted. - Neurological: Eye movement assessed, no significant findings reported. Results - Labs: Normal blood count, electrolytes, renal function, and liver function as of December. - Labs: Elevated cholesterol levels noted. - Imaging: Brain MRI in December 2024 showed no acute abnormalities but noted a megalocisterna magna. Plan Patient was informed and verbally consented to the use of an ambient scribe for clinic note documentation during this visit. 1. Dizziness The patient reports daily dizziness with associated headaches and memory issues. A neurology referral has been made to further evaluate these symptoms. 2. Chronic Constipation The patient experiences chronic constipation, possibly exacerbated by dietary habits and medication use. She has been advised to increase water intake, dietary fiber, and consider [id number] fiber supplements. 3. Hypercholesterolemia The patient's cholesterol levels are elevated, with a goal to reduce LDL to less than 130 mg/dL. Dietary modifications have been discussed, including reducing fried foods and increasing intake of green leafy vegetables. 4. Vitamin D Deficiency The patient is advised to continue vitamin D supplementation and consider sun exposure for natural vitamin D synthesis. 5. Hemorrhoids The patient reports hemorrhoids with occasional bleeding and has been advised on proper bathroom habits to alleviate symptoms. A topical cream has been prescribed for symptom relief. 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 Discussion Notes During the visit, we discussed the patient's dizziness and associated symptoms, and a referral to neurology was made for further evaluation. We also reviewed her chronic constipation and recommended increasing water and fiber intake. For her elevated cholesterol, dietary modifications were advised to achieve an LDL goal of less than 130 mg/dL. Vitamin D supplementation was discussed, and the importance of sun exposure was emphasized. We addressed her hemorrhoids, advising on proper bathroom habits and prescribing a topical cream. Lastly, we discussed the findings of her brain MRI, noting the presence of a megalocisterna magna, and planned a neurology consultation for further assessment. Patient Instructions - Follow up with neurology for dizziness evaluation. - Increase water and fiber intake to manage constipation. - Follow dietary recommendations to lower cholesterol levels. - Continue vitamin D supplementation and consider sun exposure. - Use prescribed cream for hemorrhoid relief and follow bathroom habit advice. Orders: Orders Vitamin B12 and Folate Today F41.1 - Generalized anxiety disorder Complete Blood Count Auto Diff Today F41.1 - Generalized anxiety disorder UA CC w/rflx Micro + Cult Today F41.1 - Generalized anxiety disorder, R30.0 - Dysuria MM tomosynthesis screening BI Today Z12.31 - Encounter for screening mammogram for malignant neoplasm of breast, Z12.39 - Encounter for other screening for malignant neoplasm of breast Magnesium Today F41.1 - Generalized anxiety disorder Comprehensive Met. Panel Today F41.1 - Generalized anxiety disorder Referrals Neurology Referral H81.13 - Benign paroxysmal vertigo, bilateral Medications: New hydrocortisone 2.5% (Proctosol HC) 1 appl OR BID-QID PRN 30 grams 0RF hemorrhoids K59.00 - Constipation, unspecified
--- OUTSIDE RECORDS SUMMARY | 2025-04-06 13:09 | XMS_ITS | Patient Health Record ---
Author Organization [facility] Address [address] [place] [address] Care Team Providers Care Carrier Packer Name Role Phone Po (RETIRED) Gibran MUNOZ Primary Care Provide Mateo Hernandez Unavailable [phone] Allergies Allergen (clinical drug ingredient) Drug/Non Drug [...] Problem Status W/U Status Risk Notes Problem [id number] Encounter for screening for malignant neoplasm of colon (Z12.11) Active confirmed Problem [id number] History of adenomatous polyp of colon (Z86.010) Active confirmed Problem Screening for malignant neoplasm of rectum ([id number]) Encounter for screening for malignant neoplasm of rectum (Z12.12) Active confirmed Problem [id number] Family history o f colon cancer (Z80.0) Active confirmed Problem 23313853 Constipation, unspecified constipation type (K59.00) Active confirmed Plan Of Treatment Pending Test Test Name Order Date GI BIOPSY 09/30/2015 Future Test Test Name Order Date COLONOSCOPY 08/05/2015 Insurance Providers Payer Name Payer Address Payer Phone Subscriber Number Group Number Insured Name Patient Relationship to Insured Coverage Start Date Coverage End Date [facility] [address] [address] [place], [place] [id number] JOSSELINE LARIOS Self - patient is the insured Medical (General) History Medical History History ICD Code Colonoscopy 12-05-2010--hyperplastic polyp s, int/ext hemorrhoids 2 tubular adenomas removed in 2004 Denies [place],DM,CVA,Lung disease,renal dise ase Treated for H.pylori in 06/2015--had a + serology Surgical History Surgery Date(Month/Year) cholecystectomy appendectomy tubal ligation
== END 2025-04-06 11:58 | disposition home or self-care (01) ==
LOC: HO.HMCH 10:48
PROVIDERS: Visit Provider Internal Medicine
DX: E78.00 Pure hypercholesterolemia, unspecified (principal); K21.9 Gastro-esophageal reflux disease without esophagitis; D06.9 Carcinoma in situ of cervix, unspecified; F41.1 Generalized anxiety disorder; R42 Dizziness and giddiness; Z12.31 Encounter for screening mammogram for malignant neoplasm of breast; K59.00 Constipation, unspecified; M54.2 Cervicalgia

== ENCOUNTER 2025-04-15 15:14 | Outpatient (AMB) | payer OTHER, SELFPAY ==
--- NOTE | 2025-04-15 15:18 | A.OFFVIS_ITS ---
Vital Signs 04/15/25 15:20 Height 5 ft 3 in Weight 132 lb BMI 23.4 BP 132/74 Blood Pressure Location Lt brachial Position Sitting Pulse 79 Intake Visit Reasons: Gastroesophageal reflux disease (GERD) Intake Note: New patient in office today for GERD. CC: Patient c/o dizziness, nausea, constipation, GERD, bleeding hemorrhoids, and on and off Lt sided abd pain. 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 Accompanied by: Daughter Allergies IV MED FOR VOMITING Allergy (Unknown, Uncoded 05/04/25 11:44) unknown HPI HPI Gastroesophageal reflux disease (GERD): Details: LAST VISIT WITH ERYN BAEZ 10/06/2020 (1) GERD (gastroesophageal reflux disease): Comment: Continue PPI, avoid culprits Code(s): K21.9 - Gastro-esophageal reflux disease without esophagitis Category: Medical Qualifiers: Esophagitis presence: without esophagitis Qualified Code(s): K21.9 - Gastro-esophageal reflux disease without esophagitis (2) Abdominal pain: Comment: 54-year-old female chronic left posterior rib/spine pain-does radiate to the left quadrant, physical exam -no abdominal tenderness, no rash-likely musculoskeletal-may be costochondritis, she may take ibuprofen with food, she will follow back with her PCP for further evaluation. She has had EGD, colonoscopy as well CT scan no findings to account for her symptoms Code(s): R10.9 - Unspecified abdominal pain Category: Medical Patient Instructions: 54-year-old female family history colon cancer with chronic pain may likely be costochondritis she is willing to try ibuprofen with food avoid heavy lifting and straining. She will follow back with her PCP for further follow-up. We reviewed EGD colonoscopy reports and pathology. As well we reviewed her previous abdominal CT She will follow-up repeat colonoscopy 5 years due to family history. TODAY'S VISIT: Patient is here today for requested visit. Previously seen in the office by Eryn Baez. Had upper endoscopy and colonoscopy due. Patient continues to have epigastric pain, nausea, dizziness and acid reflux. Patient reports abdominal pain, using bathroom infrequently. Reports to be constipated. When bowel movement not always feels like she empties her bowels completely. Patient denies melena, hematochezia, unintentional weight loss or ribbon like stools. Patient reports occasional dyspepsia without dysphagia or odynophagia. Patient also reports left upper quadrant pain that has been chronic reported during last visit in 2020. [facility] Medical History Chronic constipation JESSE III (cervical intraepithelial neoplasia grade III) with severe dysplasia Abscess of buttock Abdominal pain GERD (gastroesophageal reflux disease) Constipation Nausea Vertigo HPV (human papilloma virus) anogenital infection Colon polyps Surgical History Hx of colonoscopy History of tubal ligation H/O LEEP History of surgery History of cholecystectomy History of appendectomy Family History Mother Colon cancer Maternal Grandfather No problems noted. 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 Sexual orientation: Straight/Heterosexual Gender identity: Female Cognitive needs: No Hearing needs: No Vision needs: Yes (Glasses) Female Reproductive History Menstrual Age of Menarche: 14 Review of Systems Const Denies weight gain and Denies weight loss ENT Reports no additional complaints, Denies dysphagia and Denies odynophagia Card Reports no additional complaints Resp Reports no additional complaints GI Reports abdominal pain, Denies belching, Denies melena, Reports bloating, Denies change in bowel habits, Reports constipation, Denies dysphagia, Denies excessive flatus, Reports dyspepsia, Denies heartburn, Denies diarrhea, Denies loose stools, Denies nausea, Denies odynophagia and Denies vomiting Reports no additional complaints Musc Reports no additional complaints Neuro Reports no additional complaints Psych Reports no additional complaints Endo Reports no additional complaints Physical Exam Vital Signs: Last Vital Signs Pulse 79 04/15/25 15:20 BP 132/74 04/15/25 15:20 BMI result Body Mass Index 23.4 Const General: healthy appearing, no acute distress and well developed Nutritional Appearance: well nourished Orientation/consciousness: patient oriented x3 Resp Effort & Inspection: normal respiratory effort, able to speak in complete sen tences, no tracheal deviation and symmetric chest movement Auscultation: clear to auscultation bilaterally Cardio Rate: regular rate GI Inspection: Yes normal to inspection and No distended Palpation (GI): Soft to palpation, not firm, nontender and No hepatosplenomegaly present Auscultation: normal bowel sounds General: Yes no CVA tenderness Back/Spine/Pelvis Back: no CVA tenderness Skin General skin exam: elasticity normal, turgor normal and dry skin Neuro General: patient oriented x3 Psych Appearance: grossly normal Mental Status: mental status grossly normal Assessment & Plan Assessment & Plan (1) Chronic GERD: Code(s): K21.9 - Gastro-esophageal reflux disease without esophagitis Category: Medical (2) Constipation: Code(s): K59.00 - Constipation, unspecified Category: Medical Qualifiers: Constipation type: slow transit constipation Qualified Code(s): K59.01 - Slow transit constipation (3) Epigastric pain: Code(s): R10.13 - Epigastric pain Category: Medical (4) Abdominal pain, LUQ (left upper quadrant): Code(s): R10.12 - Left upper quadrant pain Plan Patient will be due to go for colonoscopy in September of 2025 due to family history of CRC. Discussed with patient increasing fiber in her diet. Increase fluid intake and activity to promote better bowel motility. Continue famotidine as needed. Avoid dietary triggers and late night snacking. Staying upright for minimum 3 hours after meals discussed with patient. Patient will take Dulcolax daily. She will call us if she will continue to have symptoms. Patient will follow-up in our office in 4 months. Will discuss going for colonoscopy she will be due by then. Patient is agreeable to plan of care and verbalizes understanding of instructions. She was given the opportunity to ask questions and all questions answered. Thank you for allowing me to participate in her care Medications: New bisacodyl (Dulcolax (bisacodyl)) 10 mg (2 x 5 mg) PO BEDTIME 180 tabs 4RF Coding Level of Care Code New Pt Level 4 (17978) Diagnoses Chronic GERD K21.9 Slow transit constipation K59.01 Constipation type: slow transit constipation Epigastric pain R10.13 Abdominal pain, LUQ (left upper quadrant) R10.12 Time Spent (min) 50 Comment 35 minutes spent with patient and additional 15 minutes spent reviewing her records
[2025-04-15 15:20] VITALS: BP 132/74; PULSE 79; BMI 23.4
--- OUTSIDE RECORDS SUMMARY | 2025-04-15 18:44 | XMS_ITS | Patient Health Record ---
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 Role Phone Po (RETIRED) Gibran MUNOZ Primary Care Provide Mateo Hernandez Unavailable [phone] Allergies Allergen (clinical drug ingredient) Drug/Non Drug [...] Problem Status W/U Status Risk Notes Problem 725393129 Encounter for screening for malignant neoplasm of colon (Z12.11) Active confirmed Problem 892947777 History of adenomatous polyp of colon (Z86.010) Active confirmed Problem Screening for malignant neoplasm of rectum (146133994) Encounter for screening for malignant neoplasm of rectum (Z12.12) Active confirmed Problem 290429401 Family history o f colon cancer (Z80.0) Active confirmed Problem 00143791 Constipation, unspecified constipation type (K59.00) Active confirmed Plan Of Treatment Pending Test Test Name Order Date GI BIOPSY 09/30/2015 Future Test Test Name Order Date COLONOSCOPY 08/05/2015 Insurance Providers Payer Name Payer Address Payer Phone Subscriber Number Group Number Insured Name Patient Relationship to Insured Coverage Start Date Coverage End Date [employer] [facility] [address] [address] [place], [place] [id number] JOSSELINE LARIOS Self - patient is the insured Medical (General) History Medical History History ICD Code Colonoscopy 12-05-2010--hyperplastic polyp s, int/ext hemorrhoids 2 tubular adenomas removed in 2004 Denies [place],DM,CVA,Lung disease,renal dise ase Treated for H.pylori in 06/2015--had a + serology Surgical History Surgery Date(Month/Year) cholecystectomy appendectomy tubal ligation
== END 2025-04-15 15:43 | disposition home or self-care (01) ==
LOC: HO.HGI 15:14
PROVIDERS: Visit Provider Nurse Practitioner Family
DX: K21.9 Gastro-esophageal reflux disease without esophagitis (principal); K59.01 Slow transit constipation; R10.13 Epigastric pain; R10.12 Left upper quadrant pain
CPT/HCPCS: 99204

== ENCOUNTER → 2025-04-15 15:14 | Outpatient (BNVA) | payer OTHER, SELFPAY | PROVIDERS: Visit Provider Nurse Practitioner Family | DX: K21.9 Gastro-esophageal reflux disease without esophagitis (principal); K59.01 Slow transit constipation; R10.12 Left upper quadrant pain; R10.13 Epigastric pain | CPT/HCPCS: 99202 ==

== ENCOUNTER 2025-05-04 11:31 | Outpatient (AMB) | payer OTHER, SELFPAY ==
[2025-05-04 11:42] VITALS: BP 130/84; PULSE 60; TEMP 36.2; O2SAT 99; BMI 23.4
--- NOTE | 2025-05-04 11:42 | MHC.PC.OV ---
Vital Signs 05/04/25 11:42 Height 5 ft 3 in Weight 132 lb BMI 23.4 BP 130/84 Blood Pressure Location Lt brachial Position Sitting Pulse 60 Pulse Source Pulse Oximeter Temp 97.1 F Temp Source Temporal Artery Scan Pulse Oximetry (%) 99 Oxygen Delivery Method Room Air Intake Visit Reasons: Headache, dizziness, vertigo Accompanied by: Daughter Allergies IV MED FOR VOMITING Allergy (Unknown, Uncoded 05/04/25 11:44) unknown Medication List - Last Reconciled 05/04/25 by Marisol Raymond MD acetaminophen (Tylenol Extra Strength) 1,000 mg PO Q6H PRN bisacodyl (Dulcolax (bisacodyl)) 10 mg (2 x 5 mg) PO BEDTIME famotidine (Pepcid) 20 mg PO DAILY PRN hydrocortisone 2.5% (Proctosol HC) 1 appl FL BID-QID PRN meclizine 25 mg PO DAILY PRN triamcinolone acetonide 0.5% 1 appl topical TID Tobacco use date assessed: 05/04/25 Dental Screening Dental Screen Date: 05/04/25 Did you have a dental visit in the last 12 months?: No Did you have a dental problem in the last 6 months where you did not have access to dental care?: No Was dental information given to patient?: No HPI HPI Comments History of Present Illness Details 59-year-old female patient with known dizziness presenting today for follow-up. 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 She has been on meclizine 25 that she takes as needed. She was previously referred to Neurology but she said that her appointment is in July and her dizziness is thin severe affecting her day-to-day life. She wanted to know more about disability paperwork. 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 Father Asthma Brother Lymphoma involving liver Maternal Aunt Breast cancer Social History Household Members: Significant Other Household Members Other:: lives with BF Housing: Apartment Alcohol intake: never Comment: baseline Patient Tobacco Use Status: Never used Tobacco Tobacco use type: Cigarette e-Cigarette/Vaping Use: Never Used Second Hand Smoke Exposure: No Advance Directives Date on File: 04/07/21 service: No Current occupational status: employed Current occupation: [employer] Sexual orientation: Straight/Heterosexual Gender identity: Female Cognitive needs: No Hearing needs: No Vision needs: Yes (Glasses) Female Reproductive History Menstrual Age of Menarche: 14 Questionnaire PHQ-9 Over the last 2 weeks, how often have you been bothered by any of the following problems? 1. Little interest or pleasure in doing things: not at all 2. Feeling down, depressed, or hopeless: nearly every day 3. Trouble falling or staying asleep, or sleeping too much: nearly every day 4. Feeling tired or having little energy: nearly every day 5. Poor appetite or overeating: not at all 6. Feeling bad about yourself - or that you are a failure or have let yourself or your family down: not at all 7. Trouble concentrating on things, such as reading the newspaper or watching television: not at all 8. Moving or speaking so slowly that other people could have noticed. Or the opposite - being so fidgety or restless that you have been moving around a lot more than usual: not at all 9. Thoughts that you would be better off or of hurting yourself in some way: not at all Total score: 9 Depression Screening Interpretation: Positive Depression Screening Done: Yes Source: Developed by Drs. Mateo Menendez, Marie Engle, Leonardo Christiansen and colleagues, with an educational tatum from [employer]. Thrive Questionnaire Date Thrive assessed: 11/27/24 I am a: Patient What is your living situation today?: I have a steady place to live Within the past 12 months, did the food you bought not last and you didn't have the money to get more?: Never true Within the past 12 months, did you worry whether your food would run out before you got money to buy more?: Never true Do you have trouble paying for medicines?: No Do you have trouble getting transportation to medical appointments?: No Do you have trouble paying your heating and electricity bill?: No Do you have trouble taking care of your child, family member or friend?: No Do you have trouble with day-to-day activities such as bathing, preparing meals, shopping, managing finances, etc.?: No Are you currently unemployed and looking for a job?: Yes Are you interested in more education?: No Please select the resources that you would like help with: None Currently or been in a relationship where the following occur: I choose not to answer THRIVE Score: 0 AUDIT C Alcohol Use Questionnaire (AUDIT-C) 1. How often do you have a drink containing alcohol?: Never 3. How often do you have six or more drinks on one occasion?: Never Total Score: 0 ANNAMARIA-7 AMB Questionnaire ANNAMARIA-7 Date ANNAMARIA - 7 assessed: 11/27/24 Feeling nervous, anxious, or on edge: 1 = Several days Not being able to stop or control worryin = Several days Worrying too much about different things: 1 = Several days Trouble relaxin = Several days Being so restless that it is hard to sit still: 0 = Not at all Becoming easily annoyed or irritable: 0 = Not at all Feeling afraid as if something awful might happen: 1 = Several days Total ANNAMARIA-7 score (0-4 normal; 5-9 mild; 10-14 moderate; 15-21 severe): 5 Source: Developed by Drs. Mateo Menendez, Marie Engle, Leonardo Christiansen and colleagues, with an educational tatum from [employer]. Review of Systems Const Details: Positives besides what was mentioned in HPI are in BOLD Constitutional: No Weight Change, No Fever, No Chills, No Night Sweats, No Fatigue, No Malaise ENT/Mouth: No Hearing Changes, No Ear Pain, No Nasal Congestion, No Sinus Pain, No Hoarseness, No sore throat, No Rhinorrhea, No Swallowing Difficulty Eyes: No Eye Pain, No Swelling, No Redness, No Foreign Body, No Discharge, No Vision Changes Cardiovascular: No Chest Pain, No SOB, No PND, No Dyspnea on Exertion, No Orthopnea, No Claudication, No Edema, No Palpitations Respiratory: No Cough, No Sputum, No Wheezing, No Smoke Exposure, No Dyspnea Gastrointestinal: No Nausea, No Vomiting, No Diarrhea, No Constipation, No Pain, No Heartburn, No Anorexia, No Dysphagia, No Hematochezia, No Melena, No Flatulence, No Jaundice Genitourinary: No Dysmenorrhea, No DUB, No Dyspareunia, No Dysuria, No Urinary Frequency, No Hematuria, No Urinary Incontinence, No Urgency, No Flank Pain, No Urinary Flow Changes, No Hesitancy Musculoskeletal: No Arthralgias, No Myalgias, No Joint Swelling, No Joint Stiffness, No Back Pain, No Neck Pain, No Injury History Skin: No Skin Lesions, No Pruritis, No Hair Changes, No Breast/Skin Changes, No Nipple Discharge Neuro: No Weakness, No Numbness, No Paresthesias, No Loss of Consciousness, No Syncope, No Dizziness, No Headache, No Coordination Changes, No Recent Falls Psych: No Anxiety/Panic, No Depression, No Insomnia, No Personality Changes, No Delusions, No Rumination, No SI/HI/AH/VH, No Social Issues, No Memory Changes, No Violence/Abuse Hx., No Eating Concerns Heme/Lymph: No Bruising, No Bleeding, No Transfusions History, No Lymphadenopathy Endocrine: No Polyuria, No Polydipsia, No Temperature Intolerance Physical exam (Primary Care) Vital Signs: Last Vital Signs Temp 97.1 F 05/04/25 11:42 Pulse 60 05/04/25 11:42 BP 130/84 05/04/25 11:42 Pulse Ox 99 05/04/25 11:42 Oxygen Delivery Method Room Air 05/04/25 11:42 BMI result Body Mass Index 23.4 Tobacco/Smoking Status: Tobacco use Status Tobacco use date assessed 05/04/25 05/04/25 11:45 Patient Tobacco Use Status Never used Tobacco 05/04/25 11:45 Tobacco use type Cigarette 05/04/25 11:45 e-Cigarette/Vaping Use Never Used 05/04/25 11:45 PHQ-9: PHQ-9 Score PHQ-9: Total score 9 05/04/25 11:45 Depression Screening Interpretation: Positive Thrive Assessment: Date of Thrive Assessment Date Thrive assessed 11/27/24 05/04/25 11:45 Currently or been in a relationship where the following occur: I choose not to answer Const Other: Pertinent findings are in BOLD GENERAL APPEARANCE NAD, activity normal for age, well developed/ well nourished, no cyanosis, pallor, or diaphoresis. EYES lids/conjunctiva normal. EARS/NOSE/THROAT Mucous membranes moist, nares normal, lips/teeth normal uvula midline without oral pharyngeal erythema, exudate or swelling TMs normal bilaterally. No lymphangitis/lymphedema. HEAD/NECK normocephalic atraumatic, no facial trauma, neck is supple. RESPIRATORY respiratory effort normal, speaks in full sentences, no tripod position, no accessory muscle use. Lungs clear to auscultation without rhonchi, wheezes, rales CARDIAC Regular rate and rhythm, no edema. ABDOMINAL Soft, ND/NT. No evidence of fluid wave. No pulsatile masses on exam, rebound tenderness, Vanessa sign or pain over Mcburney's point. MUSCLES/EXTREMITIES No abnormal range of motion, no swelling. SKIN Warm, pink and dry. No rashes, dermatoses, petechiae or lesions. NEUROLOGICAL Speech is clear and appropriate. Normal level of consciousness. Gait and coordination are normal. 5/5 strength in all extremities. PSYCH Normal mood and affect. Judgement/competence is appropriate Coding Level of Care Code Est Pt Level 3 (06833) Diagnoses Dizziness R42 Time Spent (min) 20 Assessment & Plan Assessment & Plan (1) Dizziness: Code(s): R42 - Dizziness and giddiness Category: Medical Plan: I told the patient to take meclizine every day in the morning instead of as needed. Also she is okay to take additional 25. Before bed. Patient has neurology follow-up to evaluate for the galdino cisterna magna I told the patient to try to call Neurology to have an earlier appointment. ENT referral to assist with dizziness Plan Scheduled when meclizine instead of as needed. Keep follow-up with Neurology and primary care ENT referral to assist with dizziness Orders: Referrals Ear/Nose/Throat Referral R42 - Dizziness and giddiness
--- OUTSIDE RECORDS SUMMARY | 2025-05-04 14:10 | XMS_ITS | Patient Health Record ---
Author Organization [facility] Address [address] [place] [address] Care Team Providers Care Legal Clerk Name Role Phone Po (RETIRED) Gibran MUNOZ Primary Care Provide Mateo Hernandez Unavailable [phone] Allergies Allergen (clinical drug ingredient) Drug/Non Drug [...] Problem Status W/U Status Risk Notes Problem 846940545 Encounter for screening for malignant neoplasm of colon (Z12.11) Active confirmed Problem 493389850 History of adenomatous polyp of colon (Z86.010) Active confirmed Problem Screening for malignant neoplasm of rectum (163737543) Encounter for screening for malignant neoplasm of rectum (Z12.12) Active confirmed Problem 631768616 Family history o f colon cancer (Z80.0) Active confirmed Problem 25101399 Constipation, unspecified constipation type (K59.00) Active confirmed Plan Of Treatment Pending Test Test Name Order Date GI BIOPSY 09/30/2015 Future Test Test Name Order Date COLONOSCOPY 08/05/2015 Insurance Providers Payer Name Payer Address Payer Phone Subscriber Number Group Number Insured Name Patient Relationship to Insured Coverage Start Date Coverage End Date [facility] [employer] [facility] [address] [address] [place], [place] [id number] JOSSELINE LARIOS Self - patient is the insured Medical (General) History Medical History History ICD Code Colonoscopy 12-05-2010--hyperplastic polyp s, int/ext hemorrhoids 2 tubular adenomas removed in 2004 Denies [place],DM,CVA,Lung disease,renal dise ase Treated for H.pylori in 06/2015--had a + serology Surgical History Surgery Date(Month/Year) cholecystectomy appendectomy tubal ligation
== END 2025-05-04 12:09 | disposition home or self-care (01) ==
LOC: HO.HMCH 11:32
PROVIDERS: Visit Provider Internal Medicine
DX: R42 Dizziness and giddiness (principal)

== ENCOUNTER → 2025-05-04 11:31 | Outpatient (BNVA) | payer OTHER, SELFPAY | PROVIDERS: Visit Provider Internal Medicine | DX: R42 Dizziness and giddiness (principal) | CPT/HCPCS: 99212 ==

== ENCOUNTER 2025-06-29 10:05 | Outpatient (AMB) | payer OTHER, SELFPAY ==
[2025-06-29 10:12] VITALS: BP 118/80; PULSE 76; O2SAT 96; BMI 23.4
--- NOTE | 2025-06-29 10:12 | MHC.PC.OV ---
Vital Signs 06/29/25 10:12 Height 5 ft 3 in Weight 132 lb BMI 23.4 BP 118/80 Blood Pressure Location Lt brachial Position Sitting Pulse 76 Pulse Source Pulse Oximeter Pulse Oximetry (%) 96 Oxygen Delivery Method Room Air Intake Visit Reasons: PE Allergies IV MED FOR VOMITING Allergy (Unknown, Uncoded 06/29/25 10:12) unknown Medication List - Last Reconciled 06/29/25 by Delia Malagon MD bisacodyl (Dulcolax (bisacodyl)) 10 mg (2 x 5 mg) PO BEDTIME famotidine (Pepcid) 20 mg PO DAILY PRN hydrocortisone 2.5% (Proctosol HC) 1 appl NM BID-QID PRN meclizine 25 mg PO DAILY PRN lofirtltzawm-dyif-vqsqb acid 18-400 mg-mcg (Centrum Women) 1 tab PO DAILY triamcinolone acetonide 0.5% 1 appl topical TID Tobacco use date assessed: 05/04/25 Dental Screening Dental Screen Date: 05/04/25 HPI HPI Comments History of Present Illness Details History of Present Illness The patient is a 59-year-old individual presenting for a physical exam. The patient's medical history includes JESSE 3, chronic constipation, GERD, hypercholesterolemia, and generalized anxiety disorder. The patient was seen by a colleague in April for dizziness and vertigo. The patient reports taking Tylenol as needed, Dulcolax for constipation, Pepcid for reflux, and creams for eczema and hemorrhoids. The patient is no longer taking meclizine for dizziness but has started a Centrum Women 50+ multivitamin, which has been helping with the dizziness. The patient also takes magnesium occasionally. Past diagnostic workup includes a brain MRI in December which showed a cisterna magna, and a KUB in November which showed no kidney stones. Blood work from March 2025 was normal, including CBC, electrolytes, renal function, blood sugar, liver function, B12, thyroid, and magnesium, with the exception of a mildly elevated cholesterol which is improved from prior levels. A urinalysis from that time was also normal. The patient's mother and grandfather had colorectal cancer. The patient's brother had lymphoma and was recently diagnosed with prostate cancer at age 42, and an aunt had breast cancer. There is also a family history of kidney stones. Regarding health maintenance, the patient is scheduled for a colonoscopy in September 2025 and has upcoming appointments with gastroenterology on August 07, gynecology on August 10, and neurology on August 12. The patient has not had a mammogram and is due for one. [facility] A mammogram referral will be placed, as the patient is due for screening. The patient will proceed with the scheduled colonoscopy in September 2025. Vaccination status was discussed, including tetanus, influenza, and the optional shingles series. Follow-up in six months is recommended. Social History - Alcohol Use: Denies regular use; reports having one beer on . - Tobacco Use: Denies ever smoking. - Recreational Drug Use: Denies. 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 - Activity Level: Reports being active, waking at 6 a.m., and caring for pets. Results - Labs (March 2025): Normal blood count, electrolytes, renal function, blood sugar, liver function, vitamin B12, vitamin D, magnesium, and thyroid levels. - Cholesterol was mildly elevated but improved from prior results. - Urinalysis (March 2025): Normal, with no blood. - MRI Brain (January 25): Showed a finding of cisterna magna. - KUB (November): No evidence of kidney stones. 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 1. Little interest or pleasure in doing things: not at all 2. Feeling down, depressed, or hopeless: nearly every day 3. Trouble falling or staying asleep, or sleeping too much: nearly every day 4. Feeling tired or having little energy: nearly every day 5. Poor appetite or overeating: not at all 6. Feeling bad about yourself - or that you are a failure or have let yourself or your family down: not at all 7. Trouble concentrating on things, such as reading the newspaper or watching television: not at all 8. Moving or speaking so slowly that other people could have noticed. Or the opposite - being so fidgety or restless that you have been moving around a lot more than usual: not at all 9. Thoughts that you would be better off or of hurting yourself in some way: not at all Total score: 9 Depression Screening Interpretation: Positive Depression Screening Done: Yes Source: Developed by Drs. Mateo Menendez, Marie Engle, Leonardo Christiansen and colleagues, with an educational tatum from [employer]. Thrive Questionnaire Date Thrive assessed: 11/27/24 I am a: Patient What is your living situation today?: I have a steady place to live Within the past 12 months, did the food you bought not last and you didn't have the money to get more?: Never true Within the past 12 months, did you worry whether your food would run out before you got money to buy more?: Never true Do you have trouble paying for medicines?: No Do you have trouble getting transportation to medical appointments?: No Do you have trouble paying your heating and electricity bill?: No Do you have trouble taking care of your child, family member or friend?: No Do you have trouble with day-to-day activities such as bathing, preparing meals, shopping, managing finances, etc.?: No Are you currently unemployed and looking for a job?: Yes Are you interested in more education?: No Please select the resources that you would like help with: None Currently or been in a relationship where the following occur: I choose not to answer THRIVE Score: 0 ANNAMARIA-7 AMB Questionnaire ANNAMARIA-7 Date ANNAMARIA - 7 assessed: 11/27/24 Source: Developed by Drs. Mateo Menendez, Marie Engle, Leonardo Christiansen and colleagues, with an educational tatum from [employer]. Review of Systems Narrative Review of Systems - Constitutional: Denies weight loss, notes stable weight. - Neurological: Reports dizziness, particularly with changes in position. - Gastrointestinal: Reports chronic constipation and GERD. - Genitourinary/Abdomen: Reports intermittent pain that feels like it originates from the ovarian area and radiates to the back, sometimes associated with eating. - Denies dysuria. - Dermatological: Reports eczema. Const Denies poor appetite and Denies weakness Eyes Denies no additional complaints ENT Reports Normal hearing present, Denies dizziness, Denies nasal congestion, Denies tinnitus and Denies sore throat Card Denies chest pain, Denies syncope, Denies rapid heart rate and Denies dyspnea Resp Denies cough and Denies dyspnea GI Denies change in stool character, Reports constipation, Denies diarrhea, Denies nausea and Denies vomiting Denies urinary frequency, Denies difficulty voiding and Denies dysuria Neuro Reports Normal hearing present, Denies confusion, Denies dizziness, Denies syncope and Denies weakness Psych Denies confusion Physical exam (Primary Care) Vital Signs: Last Vital Signs Pulse 76 06/29/25 10:12 BP 118/80 06/29/25 10:12 Pulse Ox 96 06/29/25 10:12 Oxygen Delivery Method Room Air 06/29/25 10:12 BMI result Body Mass Index 23.4 Tobacco/Smoking Status: Tobacco use Status Tobacco use date assessed 05/04/25 06/29/25 10:17 Patient Tobacco Use Status Never used Tobacco 06/29/25 10:17 Tobacco use type Cigarette 06/29/25 10:17 e-Cigarette/Vaping Use Never Used 06/29/25 10:17 PHQ-9: PHQ-9 Score PHQ-9: Total score 9 06/29/25 10:33 Depression Screening Interpretation: Positive Thrive Assessment: Date of Thrive Assessment Date Thrive assessed 11/27/24 06/29/25 10:17 Currently or been in a relationship where the following occur: I choose not to answer Narrative Physical Exam General: Cooperative, healthy appearing, comfortable, no acute distress and well developed Orientation: Patient oriented x3 Limitations: No limitations Head: Normal to inspection Ears: Hearing grossly normal bilaterally Nose: Normal external nose present Face and sinus: Normal facial exam Eyes: Appearance normal, both eyes and all related structures Neck: Normal visual inspection and Yes full ROM Respiratory: Normal respiratory effort and able to speak in complete sentences. Clear to auscultation bilaterally Cardiovascular: Regular rate and rhythm. Normal S1 and S2 GI: Normal to inspection. Soft to palpation and nontender Skin: No rashes or lesions noted Neuro: Patient oriented x3 Extremities: Normal to inspection Const General: No confusion Orientation/consciousness: No confusion HENMT Head: Yes normocephalic Ears: external ears normal and TM's normal bilaterally Face and sinus: Yes normal facial exam Mouth: moist mucous membranes Throat: Yes tonsils normal Eyes Conjunctivae: conjunctivae normal Pupils: Equal, round and reactive pupils present and Pupil accommodation reflex normal Direct Ophthalmoscopy: normal light reflex Neck Neck: No lymphadenopathy Thyroid: Thyroid normal Chest Chest palpation & inspection: normal inspection of the chest Resp Effort & Inspection: normal respiratory effort and no audible wheezes Auscultation: clear to auscultation bilaterally, no crackles, no wheezes and lung sounds not diminished Cardio Rate: regular rate Rhythm: regular rhythm Peripheral pulses: radial pulses present and dorsalis pedis present GI Palpation (GI): no masses Auscultation: normal bowel sounds and normoactive bowel sounds Rectal Exam - Female: deferred Skin General skin exam: no rashes or lesions noted Rashes: no rashes Neuro General: No confusion Cranial nerves: Yes Equal, round and reactive pupils present and Yes Normal hearing present Cognition (Neuro): normal cognition Gait exam (Neuro): Normal gait present Motor exam (neuro): 5/5 motor strength present throughout Deep tendon reflexes (DTR's): Right brachioradialis reflex intensity grade: 2+, Left brachioradialis reflex intensity grade: 2+, Right patellar reflex intensity grade: 2+ and Left patellar reflex intensity grade: 2+ Extrem General: No edema Coding Level of Care Code Est Pt Prev Care 40-64y(70006) Diagnoses Physical exam Z00.00 Pure hypercholesterolemia with target low density lipoprotein (LDL) cholesterol less than 130 mg/dL E78.00 ANNAMARIA (generalized anxiety disorder) F41.1 Benign paroxysmal positional vertigo due to bilateral vestibular disorder H81.13 Laterality: bilateral Chronic GERD K21.9 Chronic constipation K59.09 JESSE III (cervical intraepithelial neoplasia grade III) with severe dysplasia D06.9 Screening mammogram, encounter for Z12.31 Assessment & Plan Assessment & Plan (1) Physical exam: Code(s): Z00.00 - Encounter for general adult medical examination without abnormal findings Category: Medical Plan: Patient is advised to eat healthy, keep well hydrated, keep active and have adequate sleep. (2) Pure hypercholesterolemia with target low density lipoprotein (LDL) cholesterol less than 130 mg/dL: Code(s): E78.00 - Pure hypercholesterolemia, unspecified Category: Medical Plan: Avoid fried foods, chicken skin, eggs, butter margarine, pastries and meat. Be it pork or beef they have a lot of cholesterol LDL goal of less than 130 and triglyceride of less than 150. (3) ANNAMARIA (generalized anxiety disorder): Code(s): F41.1 - Generalized anxiety disorder Category: Medical Plan: Stable (4) BPPV (benign paroxysmal positional vertigo): Code(s): H81.10 - Benign paroxysmal vertigo, unspecified ear Category: Medical Qualifiers: Laterality: bilateral Qualified Code(s): H81.13 - Benign paroxysmal vertigo, bilateral Plan: Discussed about physical therapy (5) Chronic GERD: Code(s): K21.9 - Gastro-esophageal reflux disease without esophagitis Category: Medical Plan: Avoid the foods that causes that usually spicy foods, tomato products, juices, coffee, soda and foods that your sensitive to. After eating do not lie down, allow 3-4 hours before in lie down. And keep the head of bed above 30 degrees to avoid the acid from going up. (6) Chronic constipation: Comment: Colace 200 mg, MiraLax q.h.s. Code(s): K59.09 - Other constipation Category: Medical Plan: Three rules for constipation 1. Diet need to have a high fiber diet less of meat 2. Increase oral fluids 3. 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 Positive margins JESSE 2 Code(s): D06.9 - Carcinoma in situ of cervix, unspecified Category: Medical Plan: Continue to follow-up with gynecology (8) Screening mammogram, encounter for: Code(s): Z12.31 - Encounter for screening mammogram for malignant neoplasm of breast Category: Medical Plan Plan Patient was informed and verbally consented to the use of an ambient scribe for clinic note documentation during this visit. 1. Dizziness The patient's dizziness is likely secondary to positional changes and inadequate fluid intake. 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 The patient will follow up with neurology on August 12 for further evaluation. Continue Centrum women's multivitamin, which has been providing symptomatic relief. Counseling was provided on increasing daily fluid intake. 2. Hypercholesterolemia The patient has mild hypercholesterolemia, which has shown improvement. The goal is an LDL of less than 130 and triglycerides of less than 150. Continue healthy diet and active lifestyle. 3. Chronic Constipation And Gerd These conditions are stable. Continue Dulcolax and Pepcid as needed. The patient will follow up with gastroenterology on August 07. 4. Abdominal/Flank Pain The etiology of the patient's intermittent pain, described as starting in the front and moving to the back, is unclear. The differential includes gynecologic, gastrointestinal, and renal causes. Recent workup was negative for urologic causes. The patient will follow up with gynecology on August 10 to investigate further. Discussion Notes I reviewed the patient's upcoming specialist appointments for gastroenterology, gynecology, and neurology, confirming the dates. I explained that recent lab results were all normal, except for a mildly high cholesterol that has improved. We discussed the brain MRI finding of a cisterna magna, which I explained is likely a congenital finding and not the cause of the dizziness, but the neurology follow-up is appropriate to confirm. I stressed that the dizziness is most likely related to inadequate fluid intake and positional changes, and I strongly advised increasing water intake to 6-8 glasses per day. I addressed the new flank pain, explaining the differential includes urinary, colonic, or gynecologic issues, and since recent tests ruled out a kidney issue, follow-ups with VISUAL ARTIST and GI are important next steps. I recommended the patient proceed with a mammogram and reinforced the importance of the scheduled colonoscopy given the strong family history of colorectal cancer. I also provided information about the shingles vaccine, explaining its efficacy and two-part schedule, noting it is available at the pharmacy. I recommended a follow-up visit in six months to monitor the dizziness and overall health. Patient Instructions - Drink 6 to 8 glasses of water every day. - This will help with your dizziness, constipation, and blood pressure. - We will order a mammogram for you. - Keep your scheduled appointments: - Stomach doctor (Gastroenterology) on August 07. - Women's health doctor (Gynecology) on August 10. - Nerve doctor (Neurology) on August 12. - Continue taking your Centrum Women 50+ multivitamin, as it seems to help with your dizziness. - The shingles vaccine is a two-shot series available at your pharmacy if you decide to get it. - Continue to eat a healthy diet and stay active. - Please follow up in our office in about six months. - If you have any problems before then, please let us know. Orders: Orders MM tomosynthesis screening BI Today Z12.31 - Encounter for screening mammogram for malignant neoplasm of breast
== END 2025-06-29 10:56 | disposition home or self-care (01) ==
LOC: HO.HMCH 10:05
PROVIDERS: Visit Provider Internal Medicine
DX: Z00.00 Encounter for general adult medical examination without abnormal findings (principal); E78.00 Pure hypercholesterolemia, unspecified; F41.1 Generalized anxiety disorder; H81.13 Benign paroxysmal vertigo, bilateral; K21.9 Gastro-esophageal reflux disease without esophagitis; K59.09 Other constipation; D06.9 Carcinoma in situ of cervix, unspecified; Z12.31 Encounter for screening mammogram for malignant neoplasm of breast

== ENCOUNTER → 2025-06-29 10:05 | Outpatient (BNVA) | payer OTHER, SELFPAY | PROVIDERS: Visit Provider Internal Medicine | DX: Z00.00 Encounter for general adult medical examination without abnormal findings (principal); K59.09 Other constipation; E78.00 Pure hypercholesterolemia, unspecified; K21.9 Gastro-esophageal reflux disease without esophagitis; D06.9 Carcinoma in situ of cervix, unspecified; R42 Dizziness and giddiness; R10.9 Unspecified abdominal pain | CPT/HCPCS: 99396 ==